=== PATIENT | male | born 1990 | race Hispanic/Latino ===

== ENCOUNTER 2021-11-25 09:55 | Emergency (ER) | payer SELFPAY ==
[2021-11-25] MEDS ORDERED: dexAMETHasone 10 MG/ML VIAL ONE (10:35)
[2021-11-25] MEDS ORDERED: KETOROLAC 30 MG/ML INJ ONE (10:35)
[2021-11-25 11:46] LABS: SARS-COV-2 RT PCR NEGATIVE (NEGATIVE)
--- NOTE | 2021-11-25 11:54 | RAD REPORT ---
EXAM DESCRIPTION: RAD - Chest Pa And Lat (2 Views) - 11/25/2021 11:45 am CLINICAL HISTORY: Fever;Cough Chest pain. COMPARISON: No comparisons FINDINGS: The lungs are clear. The heart is normal in size. No displaced fractures. IMPRESSION: No acute or concerning finding suspected.
--- NOTE | 2021-11-25 12:06 | ER ---
Nurse's Notes [facility] Name: Vlad Lora Age: 31 yrs Sex: Male : 1990 Arrival Date: 11/25/2021 Time: 09:55 Bed 12 Private MD: Diagnosis: Streptococcal pharyngitis Presentation: 11/25 10:04 Chief complaint: Patient states: sore throat and fever that began yesterday. ss Coronavirus screen: Client denies travel out of the [place] in the last 14 days. Ebola Screen: Patient denies exposure to infectious person. Patient denies travel to an Ebola-affected area in the 21 days before illness onset. Initial Sepsis Screen: Does the patient meet any 2 criteria? No. Patient's initial sepsis screen is negative. Does the patient have a suspected source of infection? No. Patient's initial sepsis screen is negative. Risk Assessment: Do you want to hurt yourself or someone else? Patient reports no desire to harm self or others. Onset of symptoms was November 24, 2021. 10:04 Method Of Arrival: Ambulatory ss 10:04 Acuity: ROSMERY 3 ss Historical: - Allergies: 10:06 No Known Allergies; ss - Home Meds: 10:06 None [Active]; ss - PMHx: 10:06 None; ss - PSHx: 10:06 None; ss - Immunization history:: Client reports having NOT received the Covid vaccine. - Social history:: Smoking status: Patient denies any tobacco usage or history of. Screenin:06 Abuse screen: Denies threats or abuse. Denies injuries from another. Nutritional ss screening: No deficits noted. Tuberculosis screening: Never had TB. Fall Risk None identified. Assessment: 10:06 General: Appears uncomfortable, Behavior is calm, cooperative, Reports fever for ss feeling ill for 12-24 hours. Pain: Complains of pain in throat Pain currently is 8 out of 10 on a pain scale. Quality of pain is described as aching, tender. Neuro: Level of Consciousness is awake, alert, obeys commands, Oriented to person, place, time, situation. Respiratory: Airway is patent Respiratory effort is even, unlabored, Respiratory pattern is regular, symmetrical. GI: Patient currently denies abdominal pain, diarrhea, nausea, vomiting. EENT: Nares are clear Oral mucosa is moist. Throat is reddened has enlarged tonsils Reports difficulty swallowing since yesterday pain when swallowing. Derm: Skin is intact, is healthy with good turgor, Skin is pink, warm \\T\\ dry. normal. 12:13 General: Appears in no apparent distress. comfortable. Cardiovascular: Capillary refill ss < 3 seconds is brisk in bilateral fingers. Respiratory: Airway is patent Respiratory effort is even, unlabored, Respiratory pattern is regular, symmetrical. Derm: Skin is intact, is healthy with good turgor, Skin is pink, warm \\T\\ dry. normal. Vital Signs: 10:04 BP 141 / 85; Pulse 123; Resp 17; Temp 98.0(O); Pulse Ox 99% on R/A; Weight 83.01 kg; ss Height 5 ft. 9 in. (175.26 cm); Pain 8/10; 10:43 Pulse 116; ss 10:04 Body Mass Index 27.02 (83.01 kg, 175.26 cm) ss ED Course: 09:55 Patient arrived in ED. am2 09:57 José Sosa NP is PHCP. pm1 09:57 Edmund Mckeon MD is Attending Physician. pm1 10:06 Triage completed. ss 10:06 Arm band placed on right wrist. ss 10:06 Patient has correct armband on for positive identification. Bed in low position. Call ss light in reach. Side rails up X 1. 10:23 Strep Sent. ss 10:23 COVID-19/FLU A+B (Document "Date of Onset" if Symptomatic) Sent. ss 10:42 Norma Baires, BRYAN is Primary Nurse. ss 11:46 Chest Pa And Lat (2 Views) XRAY In Process Unspecified. EDMS 12:13 No provider procedures requiring assistance completed. Patient did not have IV access ss during this emergency room visit. Administered Medications: 10:42 Drug: Ketorolac 60 mg Route: IM; Site: right gluteus; ss 12:13 Follow up: Response: No adverse reaction; Marked relief of symptoms; Pain is decreased ss 10:43 Drug: Decadron (dexamethasone) 10 mg Route: IM; Site: right deltoid; ss 12:13 Follow up: Response: No adverse reaction; Marked relief of symptoms; Pain is decreased ss Outcome: 12:05 Discharge ordered by . pm1 12:13 Discharged to home ambulatory. 12:13 Condition: good 12:13 Discharge instructions given to patient, family, Instructed on discharge instructions, follow up and referral plans. medication usage, Demonstrated understanding of instructions, follow-up care, medications, Prescriptions given X 2. 12:18 Patient left the ED. Signatures: Dispatcher [employer] EDNorma Buenrostro RN RN ss Marinas, Patrick, MACHINE WELT BUTTER MACHINE WELT BUTTER pm1 Elaine Vila am2
--- NOTE | 2021-11-25 12:06 | EDPHYS ---
Physician Documentation [facility] Name: Vlad Lora Age: 31 yrs Sex: Male : 1990 Arrival Date: 11/25/2021 Time: 09:55 Bed 12 Private MD: ED Physician Edmund Mckeon HPI: 11/25 10:32 This 31 yrs old Male presents to ER via Ambulatory with complaints of Sore pm1 Throat, Difficulty Swallowing, Fever, Chest Congestion. 10:32 The patient presents with sore throat. The patient describes throat pain as raw, pm1 scratchy. 10:32 Onset: The symptoms/episode began/occurred 3 day(s) ago. Severity of symptoms: in the pm1 emergency department the symptoms are actually worse. Modifying factors: The symptoms are alleviated by nothing, the symptoms are aggravated by swallowing, Patient's oral intake status: good unaware of sick contact. Associated signs and symptoms: Pertinent positives: fever, chest congestion, Pertinent negatives shortness of breath. The patient has not experienced similar symptoms in the past. The patient has not recently seen a physician. Historical: - Allergies: 10:06 No Known Allergies; ss - Home Meds: 10:06 None [Active]; ss - PMHx: 10:06 None; ss - PSHx: 10:06 None; ss - Immunization history:: Client reports having NOT received the Covid vaccine. - Social history:: Smoking status: Patient denies any tobacco usage or history of. ROS: 10:32 Constitutional: Negative for fever, chills, and weight loss. pm1 10:32 Abdomen/GI: Negative for abdominal pain, nausea, vomiting, diarrhea, and constipation. 10:32 Back: Negative for injury and pain, MS/Extremity: Negative for injury and deformity, Skin: Negative for injury, rash, and discoloration, Neuro: Negative for headache, weakness, numbness, tingling, and seizure. 10:32 ENT: Positive for sore throat, Negative for ear pain. 10:32 Cardiovascular: Negative for chest pain. 10:32 Respiratory: Negative for cough, shortness of breath. 10:32 All other systems are negative. Exam: 10:32 Constitutional: This is a well developed, well nourished patient who is awake, alert, pm1 and in no acute distress. Head/Face: Normocephalic, atraumatic. 10:32 Back: No spinal tenderness. No costovertebral tenderness. Full range of motion. Skin: Warm, dry with normal turgor. Normal color with no rashes, no lesions, and no evidence of cellulitis. MS/ Extremity: Pulses equal, no cyanosis. Neurovascular intact. Full, normal range of motion. 10:32 Eyes: Exam is negative for acute changes, Periorbital structures: appear normal, Extraocular movements: no acute changes, Conjunctiva: no acute changes, no injection. 10:32 ENT: External ear(s): no acute changes, Ear canal(s): no acute changes, TM's: no acute changes, Posterior pharynx: Tonsils: bilaterally enlarged, with erythema, no exudate, no ulcerations, peritonsillar mass, is not appreciated. 10:32 Cardiovascular: Exam negative for acute changes, Rate: normal, Rhythm: regular, Pulses: no pulse deficits are appreciated. 10:32 Respiratory: Exam negative for acute changes, respiratory distress, shortness of breath, Breath sounds: are clear throughout. 10:32 Neuro: Exam negative for acute changes, Orientation: is normal, Mentation: is normal, Motor: is normal, moves all fours. Vital Signs: 10:04 BP 141 / 85; Pulse 123; Resp 17; Temp 98.0(O); Pulse Ox 99% on R/A; Weight 83.01 kg; ss Height 5 ft. 9 in. (175.26 cm); Pain 8/10; 10:43 Pulse 116; ss 10:04 Body Mass Index 27.02 (83.01 kg, 175.26 cm) MDM: 10:04 Patient medically screened. pm1 12:05 Data reviewed: vital signs. Data interpreted: Pulse oximetry: on room air is 99 %. pm1 Interpretation: normal. Counseling: I had a detailed discussion with the patient and/or guardian regarding: the historical points, exam findings, and any diagnostic results supporting the discharge/admit diagnosis, lab results, radiology results, the need for outpatient follow up, to return to the emergency department if symptoms worsen or persist or if there are any questions or concerns that arise at home. 11/25 10:05 Order name: COVID-19/FLU A+B (Document "Date of Onset" if Symptomatic); Complete Time: pm1 11:47 02 10:05 Order name: Strep; Complete Time: 11:38 pm1 11/25 10:30 Order name: Chest Pa And Lat (2 Views) XRAY; Complete Time: 12:05 pm1 Administered Medications: 10:42 Drug: Ketorolac 60 mg Route: IM; Site: right gluteus; ss 12:13 Follow up: Response: No adverse reaction; Marked relief of symptoms; Pain is decreased ss 10:43 Drug: Decadron (dexamethasone) 10 mg Route: IM; Site: right deltoid; ss 12:13 Follow up: Response: No adverse reaction; Marked relief of symptoms; Pain is decreased ss Disposition: 12:38 Co-signature as Attending Physician, Edmund Mckeon MD. rn Disposition Summary: 11/25/21 12:05 Discharge Ordered Location: Home pm1 Problem: new pm1 Symptoms: have improved pm1 Condition: Stable pm1 Diagnosis - Streptococcal pharyngitis pm1 Followup: pm1 - With: Emergency Department - When: As needed - Reason: Worsening of condition Followup: pm1 - With: Private Physician - When: 2 - 3 days - Reason: Recheck today's complaints, Continuance of care, Re-evaluation by your physician Discharge Instructions: - Discharge Summary Sheet pm1 - Strep Throat, Adult pm1 Forms: - Medication Reconciliation Form pm1 - Thank You Letter pm1 - Antibiotic Education pm1 - Prescription Opioid Use pm1 Prescriptions: - Amoxicillin 500 mg Oral Capsule - take 1 capsule by ORAL route every 8 hours for 10 days; 30 tablet; Refills: 0, pm1 Product Selection Permitted - Diclofenac Sodium 75 mg Oral tablet,delayed release (DR/EC) - take 1 tablet by ORAL route 2 times per day As needed; 30 tablet; Refills: 0, pm1 Product Selection Permitted Signatures: Dispatcher [employer] Edmund Murillo MD MD rn Smirch, Shelby, RN RN ss Marinas, Patrick, NP CLOTH FEEDER pm1
[2021-11-25 12:29] VITALS: BP 141/85; TEMP 98; O2SAT 99
== END 2021-11-25 12:18 | disposition home or self-care (01) ==
LOC: ER 09:55
DX: J02.0 Streptococcal pharyngitis (principal); Z20.822 Contact with and (suspected) exposure to COVID-19
CPT/HCPCS: 0240U; 71046; 87081; 96372; 99284; J1100

== ENCOUNTER 2022-01-04 17:17 | Inpatient (IN) | payer SELFPAY ==
--- OUTSIDE RECORDS SUMMARY | 2022-01-04 23:59 | XMS REPORT | Continuity of Care Document ---
:1990 Author Organization [facility] t Address [address] Weiss [address] [place] [address] Care Team Providers Name Role Phone LEONARDA Attending Clinician Unavailable SY VALVERDE Attending Clinician Unavailable LEONOR EDWARDS Attending Clinician Unavailable SY VALVERDE Admitting Clinician Unavailable Payers Payer Name Policy Type Policy Number Effective Date Expiration Date S [facility] CARE - [id number] GENERIC - [facility] CARE Problems This patient has no known problems. Allergies, Adverse Reactions, Alerts Allergy Allergy Status Severity Reaction(s) Onset Inactive Treating Comm ents Source Name Type Date Date Clinician NO KNOWN Allergy Active [facility] Medications This patient has no known medications. Vital Signs Vital Name Observation Time Observation Value Comments Source WEIGHT 2022-01-03 08:09:00 68.7 kg WEIGHT 2022-01-02 09:48:00 68.856 kg WEIGHT 2021-12-29 08:00:00 70.897 kg WEIGHT 2021-12-27 12:15:00 73.7 kg WEIGHT 2021-12-26 07:20:00 73.982 kg WEIGHT 2021-12-22 07:34:00 75.887 kg WEIGHT 2021-12-12 08:17:00 77.2 kg WEIGHT 2021-12-11 07:07:00 78.6 kg WEIGHT 2021-12-10 09:04:00 82.9 kg WEIGHT 2021-12-09 11:00:00 86.592 kg WEIGHT 2021-12-08 11:00:00 87.771 kg WEIGHT 2021-12-05 09:00:00 86.2 kg WEIGHT 2021-11-30 23:00:00 87.4 kg HEIGHT 2021-11-30 17:00:00 175 cm WEIGHT 2021-11-30 17:00:00 85.775 kg WEIGHT 2022-01-03 08:09:00 68.7 kg WEIGHT 2022-01-02 09:48:00 68.856 kg WEIGHT 2021-12-29 08:00:00 70.897 kg WEIGHT 2021-12-27 12:15:00 73.7 kg WEIGHT 2021-12-26 07:20:00 73.982 kg WEIGHT 2021-12-22 07:34:00 75.887 kg WEIGHT 2021-12-12 08:17:00 77.2 kg WEIGHT 2021-12-11 07:07:00 78.6 kg WEIGHT 2021-12-10 09:04:00 82.9 kg WEIGHT 2021-12-09 11:00:00 86.592 kg WEIGHT 2021-12-08 11:00:00 87.771 kg WEIGHT 2021-12-05 09:00:00 86.2 kg WEIGHT 2021-11-30 23:00:00 87.4 kg HEIGHT 2021-11-30 17:00:00 175 cm WEIGHT 2021-11-30 17:00:00 85.775 kg Procedures This patient has no known procedures. Encounters Start End Encounter Admission Attending Care Care Encounter Source Date/Time Date/Time Type Type Clinicians Facility Department ID 2022-01-16 2022-01-16 Outpatient TOBY BROWER [id number] [facility] 00:00:00 00:00:00 DIPAK 2021-11-30 2022-01-04 Inpatient UR NICOLLETOBY Surgery [id number] [facility] 15:29:00 22:45:00 VENU 2022-01-03 2022-01-03 Outpatient TOBY BROWER [id number] [facility] 00:00:00 00:00:00 SHELLEY 2021-12-21 2021-12-21 Outpatient TOBY BROWER [id number] [facility] 00:00:00 00:00:00 SHELLEY 2021-12-13 2021-12-13 Outpatient EL TOBY BROWER [id number] [facility] 00:00:00 00:00:00 DIPAKBAILEE 2021-11-30 2021-11-30 Outpatient [facility] [id number] [facility] 15:29:00 23:59:00 [facility] 2021-11-30 2021-11-30 Outpatient [facility] [id number] [facility] 15:29:00 15:29:00 [facility] 2021-11-30 2021-11-30 Outpatient [facility] [id number] [facility] 15:29:00 15:29:00 [facility] 2021-11-30 2021-11-30 Outpatient SHINE EDWARDS [facility] [id number] [facility] 11:11:52 11:11:52 [facility] Results Test Description Test Time Test Comments Results Result Comments Source CBC (HEMOGRAM ONLY) 2022-01-04 05:38:19 Test Item Value Reference Range Interpretation Comme nts WHITE BLOOD CELL COUNT (BEAKER) (test code = 775) 6.5 K/ L 3.5- 10.5 RED BLOOD CELL COUNT (BEAKER) (test code = 761) 3.73 M/ L 4.63-6 .08 L HEMOGLOBIN (BEAKER) (test code = 410) 9.7 GM/DL 13.7-17.5 L HEMATOCRIT (BEAKER) (test code = 411) 30.3 % 40.1-51.0 L MEAN CORPUSCULAR VOLUME (BEAKER) (test code = 753) 81.2 fL 79. 0-92.2 MEAN CORPUSCULAR HEMOGLOBIN (BEAKER) (test code = 751) 26.0 pg 25.7-32.2 MEAN CORPUSCULAR HEMOGLOBIN CONC (BEAKER) (test code = 752) 32.0 GM/DL 32.3-36.5 L RED CELL DISTRIBUTION WIDTH (BEAKER) (test code = 412) 14.1 % 11.6-14.4 PLATELET COUNT (BEAKER) (test code = 756) 502 K/CU MM 150-450 H MEAN PLATELET VOLUME (BEAKER) (test code = 754) 8.1 fL 9.4-12 .4 L NUCLEATED RED BLOOD CELLS (BEAKER) (test code = 413) 0 /100 WBC 0 -0 BUN AND CREATININE [id number] 04:24:21 Test Item Value Reference Range Interpretation Comments BLOOD UREA NITROGEN 11 mg/dL 7-21 (BEAKER) (test code = 354) CREATININE (BEAKER) 1.06 mg/dL 0.57-1.25 (test code = 358) BUN/CREAT RATIO 10 For a normal (BEAKER) (test code individu al on a = 8204052001) normal diet, t he reference inter edward for the mass ra luis ranges between 12:1 and 20:1 (BUN i n mg/dL/creatinin e in mg/dL) EGFR (BEAKER) (test 81 mL/min/1.73 ESTIMA AMBAR GFR IS code = 1092) sq m NOT ACCURATE CREATININE CLEARANCE IN PREDICTING GLOMERULAR FILTRATION RATE . ESTIMATED GFR I S NOT APPLICABLE FOR DIALYSIS PATIEN TS. [facility] ID - [place] AMEZCUAUNGUS CULTURE + [id number] 17:17:07 Test Item Value Reference Range Interpretation Comments CULTURE (BEAKER) (test No fungus isolated in code = 1095) 28 days FUNGUS SMEAR (BEAKER) No fungi seen (test code = 1406) FUNGUS CULTURE + [id number] 17:17:06 Test Item Value Reference Range Interpretation Comments CULTURE (BEAKER) (test No fungus isolated in code = 1095) 28 days FUNGUS SMEAR (BEAKER) No fungi seen (test code = 1406) SARS-COV2/RT-PCR ([facility])2021-12-30 09:52:18 Test Item Value Reference Range Interpretation Comments SARS-COV2/RT-PCR (test Negative Not Detected, Negative, code = 8366861) See external report for linked test SARS-COV-[address] [facility] (test code = 7504510) Negative result for this test determines that SARS-CoV-2 RNA was not present in the specimen above the Limit of Detection (LOD). However, Negative results do not preclude SARS-CoV-2 infection and should not be used as the sole basis for treatment or patient management decisions. Negative results mustbe combined with clinical observations, patient history, and epidemiological information. A false negative result may occur if a specimen is improperly collected, transported or handled. A false negative result should be considered if patient's recent exposures or clinical presentation indicate that COVID-19 (SARS-CoV-2) is likely and diagnostic tests for other causes of illness are negative. Re-testing should be considered in cases of suspected false negatives.The limit of detection for this assay is 800 copies/mL.This SARS CoV-2 test is a real-time RT-PCR test intended for the qualitative detection of nucleic acid from SARS-CoV-2 in a nasopharyngeal swab specimen collected from individuals susp ected of COVID-19 by their healthcare provider.This test has not been Food and Drug Administration (FDA) cleared or approved. This is a modified version of an approved Emergency Use Authorization (EUA) and is in the process of review by the FDA. Once authorized by the FDA, the issued EUA will be effective until the declaration that circumstances exist justifying the authorization of the emergency use of in vitro diagnostic tests for detection and/or diagnosis of COVID-19 is terminated under Section 564(b)(2) of the Act or the EUA is revoked under Section 564(g) of the Act.Fact Sheet for Healthcare Providers:https://www.[employer]/sites/default/files/product/documents/Fact_Shee y_WH_Fmtlycspp_Jkkq_TXMH-MrD-0.pdfFact Sheet for Healthcare Patients:https://www.[employer]/sites/default/files/product/ documents/Epps_Cdlld_Ushsdoel_Ijnn_IPUM-SrT-7.pdfPerforming Laboratory:[address], [place] [address]OCS AND CREATININE [id number] 05:45:15 Test Item Value Reference Range Interpretation Comments BLOOD UREA NITROGEN 9 mg/dL 7-21 (BEAKER) (test code = 354) CREATININE (BEAKER) 1.26 mg/dL 0.57-1.25 H (test code = 358) BUN/CREAT RATIO 7 For a normal (BEAKER) (test code individu al on a = 5533438099) normal diet, t he reference inter edward for the mass ra luis ranges between 12:1 and 20:1 (BUN i n mg/dL/creatinin e in mg/dL) EGFR (BEAKER) (test 67 mL/min/1.73 ESTIMA AMBAR GFR IS code = 1092) sq m NOT ACCURATE CREATININE CLEARANCE IN PREDICTING GLOMERULAR FILTRATION RATE . ESTIMATED GFR I S NOT APPLICABLE FOR DIALYSIS PATIEN TS. [id number] 05:45:15 Test Item Value Reference Range Interpretation Comments MAGNESIUM (BEAKER) (test code = 1.9 mg/dL 1.6-2.6 627) [facility] ID - DBBASIC METABOLIC [id number] 05:45:14 Test Item Value Reference Range Interpretation Comments SODIUM (BEAKER) 136 meq/L 136-145 (test code = 381) POTASSIUM (BEAKER) 4.0 meq/L 3.5-5.1 (test code = 379) CHLORIDE (BEAKER) 102 meq/L 98-107 (test code = 382) CO2 (BEAKER) (test 24 meq/L 22-29 code = 355) BLOOD UREA NITROGEN 9 mg/dL 7-21 (BEAKER) (test code = 354) CREATININE (BEAKER) 1.26 mg/dL 0.57-1.25 H (test code = 358) GLUCOSE RANDOM 94 mg/dL 70-105 (BEAKER) (test code = 652) CALCIUM (BEAKER) 9.0 mg/dL 8.4-10.2 (test code = 697) EGFR (BEAKER) (test 67 mL/min/1.73 ESTIMA AMBAR GFR IS code = 1092) sq m NOT ACCURATE CREATININE CLEARANCE IN PREDICTING GLOMERULAR FILTRATION RATE . ESTIMATED GFR I S NOT APPLICABLE FOR DIALYSIS PATIEN TS. [facility] ID - DBCBC W/PLT COUNT & AUTO [id number] 05:35:41 Test Item Value Reference Range Interpretation Comments WHITE BLOOD CELL COUNT (BEAKER) 7.2 K/ L 3.5-10.5 (test code = 775) RED BLOOD CELL COUNT (BEAKER) 3.44 M/ L 4.63-6.08 L (test code = 761) HEMOGLOBIN (BEAKER) (test code = 9.0 GM/DL 13.7-17.5 L 410) HEMATOCRIT (BEAKER) (test code = 28.5 % 40.1-51.0 L 411) MEAN CORPUSCULAR VOLUME (BEAKER) 82.8 fL 79.0-92.2 (test code = 753) MEAN CORPUSCULAR HEMOGLOBIN 26.2 pg 25.7-32.2 (BEAKER) (test code = 751) MEAN CORPUSCULAR HEMOGLOBIN CONC 31.6 GM/DL 32.3-36.5 L (BEAKER) (test code = 752) RED CELL DISTRIBUTION WIDTH 13.9 % 11.6-14.4 (BEAKER) (test code = 412) PLATELET COUNT (BEAKER) (test 563 K/CU MM 150-450 H code = 756) MEAN PLATELET VOLUME (BEAKER) 8.2 fL 9.4-12.4 L (test code = 754) NUCLEATED RED BLOOD CELLS 0 /100 WBC 0-0 (BEAKER) (test code = 413) NEUTROPHILS RELATIVE PERCENT 51 % (BEAKER) (test code = 429) LYMPHOCYTES RELATIVE PERCENT 30 % (BEAKER) (test code = 430) MONOCYTES RELATIVE PERCENT 9 % (BEAKER) (test code = 431) EOSINOPHILS RELATIVE PERCENT 9 % (BEAKER) (test code = 432) BASOPHILS RELATIVE PERCENT 0 % (BEAKER) (test code = 437) NEUTROPHILS ABSOLUTE COUNT 3.66 K/ L 1.78-5.38 (BEAKER) (test code = 670) LYMPHOCYTES ABSOLUTE COUNT 2.14 K/ L 1.32-3.57 (BEAKER) (test code = 414) MONOCYTES ABSOLUTE COUNT (BEAKER) 0.64 K/ L 0.30-0.82 (test code = 415) EOSINOPHILS ABSOLUTE COUNT 0.67 K/ L 0.04-0.54 H (BEAKER) (test code = 416) BASOPHILS ABSOLUTE COUNT (BEAKER) 0.03 K/ L 0.01-0.08 (test code = 417) IMMATURE GRANULOCYTES-RELATIVE 1 % 0-1 PERCENT (BEAKER) (test code = 2801) BLOOD [id number] 09:00:59 Test Item Value Reference Range Interpretation Comments CULTURE (BEAKER) (test No growth in 5 days code = 1095) BLOOD [id number] 09:00:59 Test Item Value Reference Range Interpretation Comments CULTURE (BEAKER) (test No growth in 5 days code = 1095) BUN AND CREATININE [id number] 05:34:05 Test Item Value Reference Range Interpretation Comments BLOOD UREA NITROGEN 8 mg/dL 7-21 (BEAKER) (test code = 354) CREATININE (BEAKER) 1.14 mg/dL 0.57-1.25 (test code = 358) BUN/CREAT RATIO 7 For a normal (BEAKER) (test code individu al on a = 5158191210) normal diet, t he reference inter edward for the mass ra luis ranges between 12:1 and 20:1 (BUN i n mg/dL/creatinin e in mg/dL) EGFR (BEAKER) (test 75 mL/min/1.73 ESTIMA AMBAR GFR IS code = 1092) sq m NOT ACCURATE CREATININE CLEARANCE IN PREDICTING GLOMERULAR FILTRATION RATE . ESTIMATED GFR I S NOT APPLICABLE FOR DIALYSIS PATIEN TS. [facility] ID - ROSIE MCBC W/PLT COUNT & AUTO [id number] 05:18:00 Test Item Value Reference Range Interpretation Comments WHITE BLOOD CELL COUNT (BEAKER) 7.7 K/ L 3.5-10.5 (test code = 775) RED BLOOD CELL COUNT (BEAKER) 3.38 M/ L 4.63-6.08 L (test code = 761) HEMOGLOBIN (BEAKER) (test code = 8.8 GM/DL 13.7-17.5 L 410) HEMATOCRIT (BEAKER) (test code = 28.6 % 40.1-51.0 L 411) MEAN CORPUSCULAR VOLUME (BEAKER) 84.6 fL 79.0-92.2 (test code = 753) MEAN CORPUSCULAR HEMOGLOBIN 26.0 pg 25.7-32.2 (BEAKER) (test code = 751) MEAN CORPUSCULAR HEMOGLOBIN CONC 30.8 GM/DL 32.3-36.5 L (BEAKER) (test code = 752) RED CELL DISTRIBUTION WIDTH 13.8 % 11.6-14.4 (BEAKER) (test code = 412) PLATELET COUNT (BEAKER) (test 529 K/CU MM 150-450 H code = 756) MEAN PLATELET VOLUME (BEAKER) 8.3 fL 9.4-12.4 L (test code = 754) NUCLEATED RED BLOOD CELLS 0 /100 WBC 0-0 (BEAKER) (test code = 413) NEUTROPHILS RELATIVE PERCENT 61 % (BEAKER) (test code = 429) LYMPHOCYTES RELATIVE PERCENT 21 % (BEAKER) (test code = 430) MONOCYTES RELATIVE PERCENT 8 % (BEAKER) (test code = 431) EOSINOPHILS RELATIVE PERCENT 8 % (BEAKER) (test code = 432) BASOPHILS RELATIVE PERCENT 0 % (BEAKER) (test code = 437) NEUTROPHILS ABSOLUTE COUNT 4.64 K/ L 1.78-5.38 (BEAKER) (test code = 670) LYMPHOCYTES ABSOLUTE COUNT 1.63 K/ L 1.32-3.57 (BEAKER) (test code = 414) MONOCYTES ABSOLUTE COUNT (BEAKER) 0.64 K/ L 0.30-0.82 (test code = 415) EOSINOPHILS ABSOLUTE COUNT 0.61 K/ L 0.04-0.54 H (BEAKER) (test code = 416) BASOPHILS ABSOLUTE COUNT (BEAKER) 0.03 K/ L 0.01-0.08 (test code = 417) IMMATURE GRANULOCYTES-RELATIVE 1 % 0-1 PERCENT (BEAKER) (test code = 2801) BUN AND CREATININE [id number] 06:44:03 Test Item Value Reference Range Interpretation Comments BLOOD UREA NITROGEN 6 mg/dL 7-21 L (BEAKER) (test code = 354) CREATININE (BEAKER) 1.25 mg/dL 0.57-1.25 (test code = 358) BUN/CREAT RATIO 5 For a normal (BEAKER) (test code individu al on a = [id number]) normal diet, t he reference inter edward for the mass ra luis ranges between 12:1 and 20:1 (BUN i n mg/dL/creatinin e in mg/dL) EGFR (BEAKER) (test 67 mL/min/1.73 ESTIMA AMBAR GFR IS code = 1092) sq m NOT ACCURATE CREATININE CLEARANCE IN PREDICTING GLOMERULAR FILTRATION RATE . ESTIMATED GFR I S NOT APPLICABLE FOR DIALYSIS PATIEN TS. [facility] ID - DBCBC W/PLT COUNT & AUTO [id number] 06:31:13 Test Item Value Reference Range Interpretation Comments WHITE BLOOD CELL COUNT (BEAKER) 8.3 K/ L 3.5-10.5 (test code = 775) RED BLOOD CELL COUNT (BEAKER) 3.09 M/ L 4.63-6.08 L (test code = 761) HEMOGLOBIN (BEAKER) (test code = 8.0 GM/DL 13.7-17.5 L 410) HEMATOCRIT (BEAKER) (test code = 25.6 % 40.1-51.0 L 411) MEAN CORPUSCULAR VOLUME (BEAKER) 82.8 fL 79.0-92.2 (test code = 753) MEAN CORPUSCULAR HEMOGLOBIN 25.9 pg 25.7-32.2 (BEAKER) (test code = 751) MEAN CORPUSCULAR HEMOGLOBIN CONC 31.3 GM/DL 32.3-36.5 L (BEAKER) (test code = 752) RED CELL DISTRIBUTION WIDTH 13.7 % 11.6-14.4 (BEAKER) (test code = 412) PLATELET COUNT (BEAKER) (test 480 K/CU MM 150-450 H code = 756) MEAN PLATELET VOLUME (BEAKER) 8.3 fL 9.4-12.4 L (test code = 754) NUCLEATED RED BLOOD CELLS 0 /100 WBC 0-0 (BEAKER) (test code = 413) NEUTROPHILS RELATIVE PERCENT 60 % (BEAKER) (test code = 429) LYMPHOCYTES RELATIVE PERCENT 22 % (BEAKER) (test code = 430) MONOCYTES RELATIVE PERCENT 10 % (BEAKER) (test code = 431) EOSINOPHILS RELATIVE PERCENT 7 % (BEAKER) (test code = 432) BASOPHILS RELATIVE PERCENT 0 % (BEAKER) (test code = 437) NEUTROPHILS ABSOLUTE COUNT 4.98 K/ L 1.78-5.38 (BEAKER) (test code = 670) LYMPHOCYTES ABSOLUTE COUNT 1.78 K/ L 1.32-3.57 (BEAKER) (test code = 414) MONOCYTES ABSOLUTE COUNT (BEAKER) 0.78 K/ L 0.30-0.82 (test code = 415) EOSINOPHILS ABSOLUTE COUNT 0.57 K/ L 0.04-0.54 H (BEAKER) (test code = 416) BASOPHILS ABSOLUTE COUNT (BEAKER) 0.03 K/ L 0.01-0.08 (test code = 417) IMMATURE GRANULOCYTES-RELATIVE 1 % 0-1 PERCENT (BEAKER) (test code = 2801) C. DIFFICILE GDH [id number] 12:00:45 Test Item Value Reference Range Interpretation Comments CDT TOXIN (test code Negative Negative = [id number]) CDT GDH ANTIGEN (test Negative Negative No ind ication of code = 8455906738) Clostridi um difficile infection and n o colonization. Discontinue ent paulina isolation and t herapy. Testing performed by [employer] Rapid Cassette Assay. For GDH, published sensitivity of the assay is 98.7% compared to cytotoxicity testing. For Toxin AB, published sensitivity is 87.8% and specificity 99.4% compared to cytotoxicity testing.Verification of kit performance was done by the [facility] Microbiology Lab prior to clinical use.MRSA [id number] 11:40:06 Test Item Value Reference Range Interpretation Comments CULTURE (BEAKER) (test code No MRSA isolated = 1095) BUN AND CREATININE [id number] 04:20:41 Test Item Value Reference Range Interpretation Comments BLOOD UREA NITROGEN 6 mg/dL 7-21 L (BEAKER) (test code = 354) CREATININE (BEAKER) 1.24 mg/dL 0.57-1.25 (test code = 358) BUN/CREAT RATIO 5 For a normal (BEAKER) (test code individu al on a = 1228074048) normal diet, t he reference inter edward for the mass ra luis ranges between 12:1 and 20:1 (BUN i n mg/dL/creatinin e in mg/dL) EGFR (BEAKER) (test 68 mL/min/1.73 ESTIMA AMBAR GFR IS code = 1092) sq m NOT ACCURATE CREATININE CLEARANCE IN PREDICTING GLOMERULAR FILTRATION RATE . ESTIMATED GFR I S NOT APPLICABLE FOR DIALYSIS PATIEN TS. [facility] ID - ROSIE MCBC W/PLT COUNT & AUTO [id number] 03:56:24 Test Item Value Reference Range Interpretation Comments WHITE BLOOD CELL COUNT (BEAKER) 8.1 K/ L 3.5-10.5 (test code = 775) RED BLOOD CELL COUNT (BEAKER) 3.00 M/ L 4.63-6.08 L (test code = 761) HEMOGLOBIN (BEAKER) (test code = 7.8 GM/DL 13.7-17.5 L 410) HEMATOCRIT (BEAKER) (test code = 25.2 % 40.1-51.0 L 411) MEAN CORPUSCULAR VOLUME (BEAKER) 84.0 fL 79.0-92.2 (test code = 753) MEAN CORPUSCULAR HEMOGLOBIN 26.0 pg 25.7-32.2 (BEAKER) (test code = 751) MEAN CORPUSCULAR HEMOGLOBIN CONC 31.0 GM/DL 32.3-36.5 L (BEAKER) (test code = 752) RED CELL DISTRIBUTION WIDTH 13.9 % 11.6-14.4 (BEAKER) (test code = 412) PLATELET COUNT (BEAKER) (test 455 K/CU MM 150-450 H code = 756) MEAN PLATELET VOLUME (BEAKER) 8.1 fL 9.4-12.4 L (test code = 754) NUCLEATED RED BLOOD CELLS 0 /100 WBC 0-0 (BEAKER) (test code = 413) NEUTROPHILS RELATIVE PERCENT 61 % (BEAKER) (test code = 429) LYMPHOCYTES RELATIVE PERCENT 21 % (BEAKER) (test code = 430) MONOCYTES RELATIVE PERCENT 9 % (BEAKER) (test code = 431) EOSINOPHILS RELATIVE PERCENT 7 % (BEAKER) (test code = 432) BASOPHILS RELATIVE PERCENT 1 % (BEAKER) (test code = 437) NEUTROPHILS ABSOLUTE COUNT 4.88 K/ L 1.78-5.38 (BEAKER) (test code = 670) LYMPHOCYTES ABSOLUTE COUNT 1.68 K/ L 1.32-3.57 (BEAKER) (test code = 414) MONOCYTES ABSOLUTE COUNT (BEAKER) 0.72 K/ L 0.30-0.82 (test code = 415) EOSINOPHILS ABSOLUTE COUNT 0.57 K/ L 0.04-0.54 H (BEAKER) (test code = 416) BASOPHILS ABSOLUTE COUNT (BEAKER) 0.04 K/ L 0.01-0.08 (test code = 417) IMMATURE GRANULOCYTES-RELATIVE 2 % 0-1 H PERCENT (BEAKER) (test code = 2801) ANAEROBIC [id number] 09:20:37 Test Item Value Reference Range Interpretation Comments CULTURE (BEAKER) (test No anaerobes isolated code = 1095) RAD, CHEST, 1 VIEW, NON [id number] 07:14:00Reason for exam:->chest tubes in placeShould this be performed at the bedside?->Yes [facility] : 1990 Sex: MFINAL REPORT Exam: RAD, CHEST, 1 VIEW, NON DEPTDate: 12/26/2021 7:08 AM Indication:chest tubes in placeComparison: 12/25/2021 FINDINGS: Lines/Tubes/Devices: Overlying EKG leads. Lungs/pleura:Borderline lung volumes. Bibasilar streaky airspace opacities, left greater than right. Trace left apical pleural density. Heart/Mediastinum:Unchanged Bones/Soft Tissues: No acute osseous abnormality. Upper abdomen: Unremarkable. IMPRESSION:Borderline lung volumes.Bibasilar airspace opacities, left greater than right, likely atelectasis. Trace left apical pleural density, may represent pleural thickening versus fluid. Signed: Jim Dykes Verified Date/Time: 12/26/2021 07:14:09 Reading Location: [facility] Radiology Reading Room BUN AND CREATININE [id number] 06:03:25 Test Item Value Reference Range Interpretation Comments BLOOD UREA NITROGEN 9 mg/dL 7-21 ([facility]) (test code = 354) CREATININE ([facility]) 1.33 mg/dL 0.57-1.25 H (test code = 358) BUN/CREAT RATIO 7 For a normal (BEAKER) (test code individu al on a = [id number]) normal diet, t he reference inter edward for the mass ra luis ranges between 12:1 and 20:1 (BUN i n mg/dL/creatinin e in mg/dL) EGFR (BEAKER) (test 63 mL/min/1.73 ESTIMA AMBAR GFR IS code = 1092) sq m NOT ACCURATE CREATININE CLEARANCE IN PREDICTING GLOMERULAR FILTRATION RATE . ESTIMATED GFR I S NOT APPLICABLE FOR DIALYSIS PATIEN TS. [facility] ID - ROSIE MCBC W/PLT COUNT & AUTO [id number] 05:17:02 Test Item Value Reference Range Interpretation Comments WHITE BLOOD CELL COUNT (BEAKER) 8.6 K/ L 3.5-10.5 (test code = 775) RED BLOOD CELL COUNT (BEAKER) 3.06 M/ L 4.63-6.08 L (test code = 761) HEMOGLOBIN (BEAKER) (test code = 8.0 GM/DL 13.7-17.5 L 410) HEMATOCRIT (BEAKER) (test code = 25.4 % 40.1-51.0 L 411) MEAN CORPUSCULAR VOLUME (BEAKER) 83.0 fL 79.0-92.2 (test code = 753) MEAN CORPUSCULAR HEMOGLOBIN 26.1 pg 25.7-32.2 (BEAKER) (test code = 751) MEAN CORPUSCULAR HEMOGLOBIN CONC 31.5 GM/DL 32.3-36.5 L (BEAKER) (test code = 752) RED CELL DISTRIBUTION WIDTH 13.7 % 11.6-14.4 (BEAKER) (test code = 412) PLATELET COUNT (BEAKER) (test 507 K/CU MM 150-450 H code = 756) MEAN PLATELET VOLUME (BEAKER) 8.4 fL 9.4-12.4 L (test code = 754) NUCLEATED RED BLOOD CELLS 0 /100 WBC 0-0 (BEAKER) (test code = 413) NEUTROPHILS RELATIVE PERCENT 66 % (BEAKER) (test code = 429) LYMPHOCYTES RELATIVE PERCENT 15 % (BEAKER) (test code = 430) MONOCYTES RELATIVE PERCENT 9 % (BEAKER) (test code = 431) EOSINOPHILS RELATIVE PERCENT 6 % (BEAKER) (test code = 432) BASOPHILS RELATIVE PERCENT 1 % (BEAKER) (test code = 437) NEUTROPHILS ABSOLUTE COUNT 5.71 K/ L 1.78-5.38 H (BEAKER) (test code = 670) LYMPHOCYTES ABSOLUTE COUNT 1.31 K/ L 1.32-3.57 L (BEAKER) (test code = 414) MONOCYTES ABSOLUTE COUNT (BEAKER) 0.78 K/ L 0.30-0.82 (test code = 415) EOSINOPHILS ABSOLUTE COUNT 0.52 K/ L 0.04-0.54 (BEAKER) (test code = 416) BASOPHILS ABSOLUTE COUNT (BEAKER) 0.05 K/ L 0.01-0.08 (test code = 417) IMMATURE GRANULOCYTES-RELATIVE 3 % 0-1 H PERCENT (BEAKER) (test code = 2801) CT, SOFT TISSUE NECK, [id number] 19:46:00Unlisted Reason for Exam - Click Yes and Enter Reason Below->No [facility] : 1990 Sex: MFINAL REPORT CT, SOFT TISSUE NECK, CONTRAST INDICATION: Abscess, pharynx TECHNIQUE: Postcontrast CT images of the cervical soft tissues. Multiplanar, orthogonal reformatted images were generated. DOSE REDUCTION: Dose modulation, iterative reconstruction, and/or weight-based adjustment of the mA/kV was utilized to reduce the radiation dose to as low as reasonably achievable. COMPARISON: 12/14/2021, 12/17/2021 FINDINGS: Right-sided drain has been removed in the interim. No evidence of recurrent fluid collection. Trajectory of previously described left-sided surgical drain (seen on exam 12/14/2021) is unremarkable and there is no evidence of recurrent fluid collecti on. Visualized brain parenchyma is within normal limits. No obstructive paranasal sinus disease. Orbits are within normal limits. CT is insensitive for superficial mucosal lesions, which are better evaluated by direct inspection. Within these limitations the nasopharynx, hypopharynx and larynx are within normal limits. Evaluation of the oral cavity and oropharynx is limited secondary to streak artifact from dental amalgam. Within these limitations, the oral cavity and oropharynx are within normal limits. Parotid glands, submandibular glands and the thyroid gland are within normal limits. No acuteosseous findings. As the intrathoracic findings, please see dedicated report of concomitant CT chest. IMPRESSION: Interval removal of right-sided surgical drain without recurrent fluid collection. Signed: Lacy Wang MDReport Verified Date/Time: 12/25/2021 19:46:19 CT, CHEST, WITH [id number] 17:06:00 Unlisted Reason for Exam - Click Yes and Enter Reason Below->No [facility] : 1990 Sex: MFINAL REPORT TECHNIQUE: CT of the chest WITH intravenous contrast. Dose modulation, iterative reconstruction, and/or weight-based adjustment of the mA/kV was utilized to reduce the radiation dose to as low as reasonably achievable. INDICATION: Abscess, lung or mediastinal. COMPARISON: 12/09/2021 FINDINGS: LINES/TUBES: The mediastinal drain has been removed.. LUNGS AND AIRWAYS: Central airways are patent. Linear bands of atelectasis in the bilateral lung bases. There is mild left lower lobe consolidation which is mildly decreased since the previous exam.. Few scattered bilateral subcentimeter pulmonary nodules are stable. PLEURA: There are persistent trace loculated bilateral pleural effusions with pleural thickening. There is small amount of gas within the left-sided loculated pleural effusion at the base. There is also a trace left anterior pneumothorax, new since previous exam. The trace right- sided pneumothorax has resolved. HEART AND MEDIASTINUM: Thereis persistent fat stranding within the mediastinum. No focal fluid collection. The visualized thyroid gland is normal. There are few mildly enlarged mediastinal lymph nodes, likely reactive. A subcarinal lymph node measures 1.2 cm in short axis, likely reactive.. The heart and pericardium are within normal limits. SOFT TISSUES AND BONES: Unremarkable. UPPER ABDOMEN: Unremarkable. IMPRESSION:Trace loculated left-sided hydropneumothorax is not significantly changed in size. There is also a trace leftanterior pneumothorax.. Left lower lobe consolidation or atelectasis are mildly improved. Unchanged trace right-sided pleural effusion and basilar atelectasis. Persistent inflammatory changes in the mediastinum without focal fluid collection. Signed: Jamel Croucheport Verified Date/Time: 12/25/2021 17:06:11 Reading Location: [facility] C013Y CT Body Reading Room OMYCIN LEVEL, [id number] 14:28:13 Test Item Value Reference Range Interpretation Comments VANCOMYCIN TROUGH (BEAKER) (test 19.7 ug/mL 10.0-20.0 code = 522) Coldfusion ID - ADMINSPUTUM CULTURE + GRAM [id number] 09:43:47 Test Item Value Reference Range Interpretation Comments CULTURE (BEAKER) 4+ Normal respiratory (test code = 1095) tom present GRAM STAIN RESULT 2+ WBCs (BEAKER) (test code = 1123) GRAM STAIN RESULT 5-10 epithelial cells (BEAKER) (test code = 92270) GRAM STAIN RESULT 2+ gram negative rods (BEAKER) (test code = 23361) GRAM STAIN RESULT 1+ gram positive cocci (BEAKER) (test code = in pairs and clusters 682648) RAD, CHEST, 1 VIEW, NON [id number] 09:35:00Reason for exam:->chest tubes in placeShould this be performed at the bedside?->Yes [facility] : 1990 Sex: MFINAL REPORT Exam: RAD, CHEST, 1 VIEW, NON DEPTDate: 12/25/2021 9:33 AM Indication:chest tubes in placeComparison: 12/24/2021 FINDINGS: Lines/Tubes/Devices: Overlying EKG leads. Lungs/pleura:Borderline lung volumes. Left base streaky airspace opacities. No significanteffusion. No pneumothorax. Heart/Mediastinum:Unchanged Bones/Soft Tissues: No acute osseous abnormality. Upper abdomen: Unremarkable. IMPRESSION:Borderline lung volumes.Left basilar streaky airspace opacities, likely atelectasis. No pneumothorax. Signed: Jim Dykes Verified Date/Time: 12/25/2021 09:35:13 Reading Location: [facility] Radiology Reading Room Electronically signedby: JIM DYKES MD on 12/25/2021 09:35 AMCBC W/PLT COUNT & AUTO DIFFERENTIAL 2021-12-25 04:20:55 Test Item Value Reference Range Interpretation Comments WHITE BLOOD CELL COUNT (BEAKER) 12.0 K/ L 3.5-10.5 H (test code = 775) RED BLOOD CELL COUNT (BEAKER) 3.14 M/ L 4.63-6.08 L (test code = 761) HEMOGLOBIN (BEAKER) (test code = 8.4 GM/DL 13.7-17.5 L 410) HEMATOCRIT (BEAKER) (test code = 25.9 % 40.1-51.0 L 411) MEAN CORPUSCULAR VOLUME (BEAKER) 82.5 fL 79.0-92.2 (test code = 753) MEAN CORPUSCULAR HEMOGLOBIN 26.8 pg 25.7-32.2 (BEAKER) (test code = 751) MEAN CORPUSCULAR HEMOGLOBIN CONC 32.4 GM/DL 32.3-36.5 (BEAKER) (test code = 752) RED CELL DISTRIBUTION WIDTH 13.6 % 11.6-14.4 (BEAKER) (test code = 412) PLATELET COUNT (BEAKER) (test 554 K/CU MM 150-450 H code = 756) MEAN PLATELET VOLUME (BEAKER) 8.7 fL 9.4-12.4 L (test code = 754) NUCLEATED RED BLOOD CELLS 0 /100 WBC 0-0 (BEAKER) (test code = 413) NEUTROPHILS RELATIVE PERCENT 71 % (BEAKER) (test code = 429) LYMPHOCYTES RELATIVE PERCENT 15 % (BEAKER) (test code = 430) MONOCYTES RELATIVE PERCENT 8 % (BEAKER) (test code = 431) EOSINOPHILS RELATIVE PERCENT 4 % (BEAKER) (test code = 432) BASOPHILS RELATIVE PERCENT 0 % (BEAKER) (test code = 437) NEUTROPHILS ABSOLUTE COUNT 8.49 K/ L 1.78-5.38 H (BEAKER) (test code = 670) LYMPHOCYTES ABSOLUTE COUNT 1.74 K/ L 1.32-3.57 (BEAKER) (test code = 414) MONOCYTES ABSOLUTE COUNT (BEAKER) 0.93 K/ L 0.30-0.82 H (test code = 415) EOSINOPHILS ABSOLUTE COUNT 0.45 K/ L 0.04-0.54 (BEAKER) (test code = 416) BASOPHILS ABSOLUTE COUNT (BEAKER) 0.05 K/ L 0.01-0.08 (test code = 417) IMMATURE GRANULOCYTES-RELATIVE 2 % 0-1 H PERCENT (BEAKER) (test code = 2801) BUN AND CREATININE [id number] 04:03:16 Test Item Value Reference Range Interpretation Comments BLOOD UREA NITROGEN 13 mg/dL 7-21 (BEAKER) (test code = 354) CREATININE (BEAKER) 1.19 mg/dL 0.57-1.25 (test code = 358) BUN/CREAT RATIO 11 For a normal (BEAKER) (test code individu al on a = [id number]) normal diet, t he reference inter edward for the mass ra luis ranges between 12:1 and 20:1 (BUN i n mg/dL/creatinin e in mg/dL) EGFR (BEAKER) (test 71 mL/min/1.73 ESTIMA AMBAR GFR IS code = 1092) sq m NOT ACCURATE CREATININE CLEARANCE IN PREDICTING GLOMERULAR FILTRATION RATE . ESTIMATED GFR I S NOT APPLICABLE FOR DIALYSIS PATIEN TS. Coldfusion ID - [place] WGENTAMICIN LEVEL, [id number] 23:05:08 Test Item Value Reference Range Interpretation Comments GENTAMICIN RANDOM (BEAKER) (test 3.90 ug/mL code = 653) Reference Range: No NormalsRAD, CHEST, 1 VIEW, NON [id number] 14:34:00Reason for exam:->CT removal [facility] : 1990 Sex: MFINAL REPORT Exam: RAD, CHEST, 1 VIEW, NON DEPTDate: 12/24/2021 2:34 PM Indication: Chest tube removal Comparison: CXR of earlier the same day FINDINGS: Lines/Tubes:Interval removal of left basilar chest tube. Lungs:Stable lung volumes. Unchanged mild left basilar opacities. Pleura:Trace left pleural effusion. No pneumothorax status post left chest tube removal. Hea rt/Mediastinum:The cardiomediastinal silhouette is normal in size and contour. Bones/Soft Tissues: No acute osseous injury. Abdomen: No free air below the diaphragm. IMPRESSION:No pneumothorax status post interval left chest tube removal. Signed: Marisela Cox MDReport Verified Date/Time: 12/24/2021 14:34:41 VANCOMYCIN LEVEL, [id number] 14:15:08 Test Item Value Reference Range Interpretation Comments VANCOMYCIN TROUGH (BEAKER) (test 11.4 ug/mL 10.0-20.0 code = 522) Coldfusion ID - DBRAD, CHEST, 1 VIEW, NON [id number] 09:34:00Reason for exam:- >chest tubes in placeShould this be performed at the bedside?->Yes [facility] : 1990 Sex: MFINAL REPORT TECHNIQUE: Frontal view of the chest. INDICATION:chest tubes in place COMPARISON:Prior day. DISCUSSION:Limited evaluation due to portable technique. Lines and hardware: Stable left basilar chest tube. Left medial approach chest tube has been removed.Overlying EKG leads are noted.Heart and mediastinum: Stable.Lungs and pleura: Right lung is clear. Persistent left basilar streaky opacities are noted. No discernible pneumothorax.Soft tissues and bones: No acute abnormality. IMPRESSION:Interval removal of the left medial chest tube with stable left basilar chest tube. No discernible pneumothorax.Otherwise stable exam. Signed: Afsaneh Hurtado MDReport Verified Date/Time: 12/24/2021 09:34:18 Reading Location: [facility] Radiology Reading Room ANAEROBIC [id number] 09:31:54 Test Item Value Reference Range Interpretation Comments CULTURE (BEAKER) (test No anaerobes isolated code = 1095) CBC W/PLT COUNT & AUTO [id number] 04:39:49 Test Item Value Reference Range Interpretation Comments WHITE BLOOD CELL COUNT (BEAKER) 10.7 K/ L 3.5-10.5 H (test code = 775) RED BLOOD CELL COUNT (BEAKER) 3.21 M/ L 4.63-6.08 L (test code = 761) HEMOGLOBIN (BEAKER) (test code = 8.5 GM/DL 13.7-17.5 L 410) HEMATOCRIT (BEAKER) (test code = 26.6 % 40.1-51.0 L 411) MEAN CORPUSCULAR VOLUME (BEAKER) 82.9 fL 79.0-92.2 (test code = 753) MEAN CORPUSCULAR HEMOGLOBIN 26.5 pg 25.7-32.2 (BEAKER) (test code = 751) MEAN CORPUSCULAR HEMOGLOBIN CONC 32.0 GM/DL 32.3-36.5 L (BEAKER) (test code = 752) RED CELL DISTRIBUTION WIDTH 13.4 % 11.6-14.4 (BEAKER) (test code = 412) PLATELET COUNT (BEAKER) (test 529 K/CU MM 150-450 H code = 756) MEAN PLATELET VOLUME (BEAKER) 8.3 fL 9.4-12.4 L (test code = 754) NUCLEATED RED BLOOD CELLS 0 /100 WBC 0-0 (BEAKER) (test code = 413) NEUTROPHILS RELATIVE PERCENT 64 % (BEAKER) (test code = 429) LYMPHOCYTES RELATIVE PERCENT 16 % (BEAKER) (test code = 430) MONOCYTES RELATIVE PERCENT 9 % (BEAKER) (test code = 431) EOSINOPHILS RELATIVE PERCENT 5 % (BEAKER) (test code = 432) BASOPHILS RELATIVE PERCENT 1 % (BEAKER) (test code = 437) NEUTROPHILS ABSOLUTE COUNT 6.81 K/ L 1.78-5.38 H (BEAKER) (test code = 670) LYMPHOCYTES ABSOLUTE COUNT 1.73 K/ L 1.32-3.57 (BEAKER) (test code = 414) MONOCYTES ABSOLUTE COUNT (BEAKER) 0.98 K/ L 0.30-0.82 H (test code = 415) EOSINOPHILS ABSOLUTE COUNT 0.48 K/ L 0.04-0.54 (BEAKER) (test code = 416) BASOPHILS ABSOLUTE COUNT (BEAKER) 0.09 K/ L 0.01-0.08 H (test code = 417) IMMATURE GRANULOCYTES-RELATIVE 5 % 0-1 H PERCENT (BEAKER) (test code = 2801) SURGICALLY OBTAINED CULTURE + GRAM [id number] 13:22:32 Test Item Value Reference Range Interpretation Comments CULTURE (BEAKER) (test code No growth = 1095) GRAM STAIN RESULT (BEAKER) 1+ WBCs (test code = 1123) GRAM STAIN RESULT (BEAKER) No organisms seen (test code = 56135) SURGICALLY OBTAINED CULTURE + GRAM [id number] 13:21:44 Test Item Value Reference Range Interpretation Comments CULTURE (BEAKER) (test code No growth = 1095) GRAM STAIN RESULT (BEAKER) 2+ WBCs (test code = 1123) GRAM STAIN RESULT (BEAKER) No organisms seen (test code = 78795) (CELLAVISION MANUAL DIFF)2021-12-23 11:48:02 Test Item Value Reference Range Interpretation Comments NEUTROPHILS - REL 67 % (CELLAVISION)(BEAKER) (test code = 2816) LYMPHOCYTES - REL 6 % (CELLAVISION)(BEAKER) (test code = 2817) MONOCYTES - REL 8 % (CELLAVISION)(BEAKER) (test code = 2818) EOSINOPHILS - REL 13 % (CELLAVISION)(BEAKER) (test code = 2819) ATYPICAL LYMPHOCYTES - REL 6 % 0-0 H (CELLAVISION)(BEAKER) (test code = 2829) NEUTROPHILS - ABS 9.18 K/ul 1.78-5.38 H (CELLAVISION)(BEAKER) (test code = 2830) LYMPHOCYTES - ABS 0.82 K/ul 1.32-3.57 L (CELLAVISION)(BEAKER) (test code = 2831) MONOCYTES - ABS 1.10 K/uL 0.30-0.82 H (CELLAVISION)(BEAKER) (test code = 2832) EOSINOPHILS - ABS 1.78 K/uL 0.04-0.54 H (CELLAVISION)(BEAKER) (test code = 2834) ATYPICAL LYMPHOCYTES - ABS 0.82 K/uL 0.00-0.00 H (CELLAVISION)(BEAKER) (test code = 2858) TOTAL COUNTED (BEAKER) (test code = 100 1351) RBC MORPHOLOGY (BEAKER) (test code Normal = 762) GIANT PLATELETS (BEAKER) (test code Present = 313) PLASMACYTOID LYMPHS(BEAKER) (test Present code = 1677) ARTIFACT (CELLAVISION)(BEAKER) Present (test code = 3432) PLATELET CONCENTRATION Increased (CELLAVISION)(BEAKER) (test code = 3438) Coldfusion ID - Jaymiese Graves Nyasia comments: Slide comments:CBC W/PLT COUNT & AUTO [id number] 11:48:01 Test Item Value Reference Range Interpretation Comments WHITE BLOOD CELL COUNT (BEAKER) 13.7 K/ L 3.5-10.5 H (test code = 775) RED BLOOD CELL COUNT (BEAKER) 3.15 M/ L 4.63-6.08 L (test code = 761) HEMOGLOBIN (BEAKER) (test code = 8.4 GM/DL 13.7-17.5 L 410) HEMATOCRIT (BEAKER) (test code = 26.1 % 40.1-51.0 L 411) MEAN CORPUSCULAR VOLUME (BEAKER) 82.9 fL 79.0-92.2 (test code = 753) MEAN CORPUSCULAR HEMOGLOBIN 26.7 pg 25.7-32.2 (BEAKER) (test code = 751) MEAN CORPUSCULAR HEMOGLOBIN CONC 32.2 GM/DL 32.3-36.5 L (BEAKER) (test code = 752) RED CELL DISTRIBUTION WIDTH 13.4 % 11.6-14.4 (BEAKER) (test code = 412) PLATELET COUNT (BEAKER) (test 545 K/CU MM 150-450 H code = 756) MEAN PLATELET VOLUME (BEAKER) 8.2 fL 9.4-12.4 L (test code = 754) NUCLEATED RED BLOOD CELLS 0 /100 WBC 0-0 (BEAKER) (test code = 413) RAPID STREP A [id number] 10:25:03 Test Item Value Reference Range Interpretation Comments STREP A ANTIGEN (BEAKER) (test code Negative = 556) RAD, CHEST, 1 VIEW, NON [id number] 08:23:00Reason for exam:->chest tubes in placeShould this be performed at the bedside?->Yes [facility] : 1990 Sex: MFINAL REPORT RAD, CHEST, 1 VIEW, NON DEPT INDICATION: chest tubes in place COMPARISON: Prior day's exam FINDINGS: Portable frontal view of the chest. IMPRESSION: Support Lines: Left chest tube. Lungs and pleura: Lungs are hypoinflated. Basilar atelectasis is unchanged. No significant pneumothorax. Heart and mediastinum: Stable contours. Stable surgical changes. Additional findings: None. Signed: Lacy Wang Verified Date/Time: 12/23/2021 08:23:46 [id number] 04:51:15 Test Item Value Reference Range Interpretation Comments MAGNESIUM (BEAKER) (test code = 1.9 mg/dL 1.6-2.6 627) Coldfusion ID - JANEL GBASIC METABOLIC [id number] 04:51:14 Test Item Value Reference Range Interpretation Comments SODIUM (BEAKER) 135 meq/L 136-145 L (test code = 381) POTASSIUM (BEAKER) 4.5 meq/L 3.5-5.1 (test code = 379) CHLORIDE (BEAKER) 101 meq/L 98-107 (test code = 382) CO2 (BEAKER) (test 26 meq/L 22-29 code = 355) BLOOD UREA NITROGEN 10 mg/dL 7-21 (BEAKER) (test code = 354) CREATININE (BEAKER) 0.69 mg/dL 0.57-1.25 (test code = 358) GLUCOSE RANDOM 93 mg/dL 70-105 (BEAKER) (test code = 652) CALCIUM (BEAKER) 8.5 mg/dL 8.4-10.2 (test code = 697) EGFR (BEAKER) (test 134 mL/min/1.73 ESTIM ATED GFR IS code = 1092) sq m NOT ACCURATE CREATININE CLEARANCE IN PREDICTING GLOMERULAR FILTRATION RATE . ESTIMATED GFR I S NOT APPLICABLE FOR DIALYSIS PATIEN TS. Coldfusion ID - JANEL GSARS-COV2/RT-PCR ([facility])2021-12-22 12:38:55 Test Item Value Reference Range Interpretation Comments SARS-COV2/RT-PCR (test Negative Not Detected, Negative, code = 2364990) See external report for linked test SARS-COV-[address] [facility] (test code = 9082806) Negative result for this test determines that SARS-CoV-2 RNA was not present in the specimen above the Limit of Detection (LOD). However, Negative results do not preclude SARS-CoV-2 infection and should not be used as the sole basis for treatment or patient management decisions. Negative results mustbe combined with clinical observations, patient history, and epidemiological information. A false negative result may occur if a specimen is improperly collected, transported or handled. A false negative result should be considered if patient's recent exposures or clinical presentation indicate that COVID-19 (SARS-CoV-2) is likely and diagnostic tests for other causes of illness are negative. Re-testing should be considered in cases of suspected false negatives.The limit of detection for this assay is 800 copies/mL.This SARS CoV-2 test is a real-time RT-PCR test intended for the qualitative detection of nucleic acid from SARS-CoV-2 in a nasopharyngeal swab specimen collected from individuals susp ected of COVID-19 by their healthcare provider.This test has not been Food and Drug Administration (FDA) cleared or approved. This is a modified version of an approved Emergency Use Authorization (EUA) and is in the process of review by the FDA. Once authorized by the FDA, the issued EUA will be effective until the declaration that circumstances exist justifying the authorization of the emergency use of in vitro diagnostic tests for detection and/or diagnosis of COVID-19 is terminated under Section 564(b)(2) of the Act or the EUA is revoked under Section 564(g) of the Act.Fact Sheet for Healthcare Providers:https://www.[employer].com/sites/default/files/product/documents/Fact_Shee x_QD_Bbnqnedes_Xbni_WOEI-GnX-5.pdfFact Sheet for Healthcare Patients:https://www.[employer].com/sites/default/files/product/ documents/Ivjn_Ujhua_Qfqdfuvo_Zcbc_NUCA-SeI-2.pdfPerforming Laboratory:[facility], [place] [address]BCIUV CULTURE 2021-12-22 10:00:51 Test Item Value Reference Range Interpretation Comments CULTURE (BEAKER) (test No growth in 5 days code = 1095) BLOOD [id number] 10:00:51 Test Item Value Reference Range Interpretation Comments CULTURE (BEAKER) (test No growth in 5 days code = 1095) The specimen volume collected for this blood culture was below the optimum (10 mL per bottle or 20 mL total). Use of lower volumes may adversely affect recovery and/or detection times of some organisms.RAD, CHEST, 1 VIEW, NON DEPT 2021-12-22 07:52:00Reason for exam:->s/p vatsShould this be performed at the bedside?->[facility] : 1990 Sex: MFINAL REPORT RAD, CHEST, 1 VIEW, NON DEPT INDICATION: s/p vats COMPARISON: Prior day's exam FINDINGS: Portable frontal view of the chest. IMPRESSION: Support Lines: Left chest tube. Overlying monitors. Lungs and pleura: Increased diffuse interstitial thickening, representing singly or in combination, interstitial edema and/or pneumonitis. Small left effusion.No significant pneumothorax. Heart and mediastinum: Stable contours. Additional findings: None. Signed: Lacy Wang Verified Date/Time: 12/22/2021 07:52:14 [id number] 06:12:25 Test Item Value Reference Range Interpretation Comments MAGNESIUM (BEAKER) (test code = 1.9 mg/dL 1.6-2.6 627) Coldfusion ID - ADMINBASIC METABOLIC [id number] 06:12:24 Test Item Value Reference Range Interpretation Comments SODIUM (BEAKER) 134 meq/L 136-145 L (test code = 381) POTASSIUM (BEAKER) 4.8 meq/L 3.5-5.1 (test code = 379) CHLORIDE (BEAKER) 101 meq/L 98-107 (test code = 382) CO2 (BEAKER) (test 27 meq/L 22-29 code = 355) BLOOD UREA NITROGEN 11 mg/dL 7-21 (BEAKER) (test code = 354) CREATININE (BEAKER) 0.69 mg/dL 0.57-1.25 (test code = 358) GLUCOSE RANDOM 89 mg/dL 70-105 (BEAKER) (test code = 652) CALCIUM (BEAKER) 8.6 mg/dL 8.4-10.2 (test code = 697) EGFR (BEAKER) (test 134 mL/min/1.73 ESTIM ATED GFR IS code = 1092) sq m NOT ACCURATE CREATININE CLEARANCE IN PREDICTING GLOMERULAR FILTRATION RATE . ESTIMATED GFR I S NOT APPLICABLE FOR DIALYSIS PATIEN TS. Coldfusion ID - ADMINCBC W/PLT COUNT & AUTO [id number] 05:47:01 Test Item Value Reference Range Interpretation Comments WHITE BLOOD CELL COUNT (BEAKER) 15.0 K/ L 3.5-10.5 H (test code = 775) RED BLOOD CELL COUNT (BEAKER) 3.65 M/ L 4.63-6.08 L (test code = 761) HEMOGLOBIN (BEAKER) (test code = 9.5 GM/DL 13.7-17.5 L 410) HEMATOCRIT (BEAKER) (test code = 30.6 % 40.1-51.0 L 411) MEAN CORPUSCULAR VOLUME (BEAKER) 83.8 fL 79.0-92.2 (test code = 753) MEAN CORPUSCULAR HEMOGLOBIN 26.0 pg 25.7-32.2 (BEAKER) (test code = 751) MEAN CORPUSCULAR HEMOGLOBIN CONC 31.0 GM/DL 32.3-36.5 L (BEAKER) (test code = 752) RED CELL DISTRIBUTION WIDTH 13.5 % 11.6-14.4 (BEAKER) (test code = 412) PLATELET COUNT (BEAKER) (test 578 K/CU MM 150-450 H code = 756) MEAN PLATELET VOLUME (BEAKER) 8.1 fL 9.4-12.4 L (test code = 754) NUCLEATED RED BLOOD CELLS 0 /100 WBC 0-0 (BEAKER) (test code = 413) NEUTROPHILS RELATIVE PERCENT 68 % (BEAKER) (test code = 429) LYMPHOCYTES RELATIVE PERCENT 15 % (BEAKER) (test code = 430) MONOCYTES RELATIVE PERCENT 9 % (BEAKER) (test code = 431) EOSINOPHILS RELATIVE PERCENT 2 % (BEAKER) (test code = 432) BASOPHILS RELATIVE PERCENT 1 % (BEAKER) (test code = 437) NEUTROPHILS ABSOLUTE COUNT 10.23 K/ L 1.78-5.38 H (BEAKER) (test code = 670) LYMPHOCYTES ABSOLUTE COUNT 2.28 K/ L 1.32-3.57 (BEAKER) (test code = 414) MONOCYTES ABSOLUTE COUNT (BEAKER) 1.39 K/ L 0.30-0.82 H (test code = 415) EOSINOPHILS ABSOLUTE COUNT 0.34 K/ L 0.04-0.54 (BEAKER) (test code = 416) BASOPHILS ABSOLUTE COUNT (BEAKER) 0.09 K/ L 0.01-0.08 H (test code = 417) IMMATURE GRANULOCYTES-RELATIVE 5 % 0-1 H PERCENT (BEAKER) (test code = 2801) [id number] 10:12:04 Test Item Value Reference Range Interpretation Comments MAGNESIUM (BEAKER) (test code = 2.0 mg/dL 1.6-2.6 627) Coldfusion ID - [place] WBASIC METABOLIC [id number] 10:12:03 Test Item Value Reference Range Interpretation Comments SODIUM (BEAKER) 136 meq/L 136-145 (test code = 381) POTASSIUM (BEAKER) 4.1 meq/L 3.5-5.1 (test code = 379) CHLORIDE (BEAKER) 102 meq/L 98-107 (test code = 382) CO2 (BEAKER) (test 27 meq/L 22-29 code = 355) BLOOD UREA NITROGEN 14 mg/dL 7-21 (BEAKER) (test code = 354) CREATININE (BEAKER) 0.75 mg/dL 0.57-1.25 (test code = 358) GLUCOSE RANDOM 88 mg/dL 70-105 (BEAKER) (test code = 652) CALCIUM (BEAKER) 8.5 mg/dL 8.4-10.2 (test code = 697) EGFR (BEAKER) (test 121 mL/min/1.73 ESTIM ATED GFR IS code = 1092) sq m NOT ACCURATE CREATININE CLEARANCE IN PREDICTING GLOMERULAR FILTRATION RATE . ESTIMATED GFR I S NOT APPLICABLE FOR DIALYSIS PATIEN TS. Coldfusion ID - [place] WCBC W/PLT COUNT & AUTO [id number] 09:57:50 Test Item Value Reference Range Interpretation Comments WHITE BLOOD CELL COUNT (BEAKER) 16.5 K/ L 3.5-10.5 H (test code = 775) RED BLOOD CELL COUNT (BEAKER) 3.64 M/ L 4.63-6.08 L (test code = 761) HEMOGLOBIN (BEAKER) (test code = 9.7 GM/DL 13.7-17.5 L 410) HEMATOCRIT (BEAKER) (test code = 30.4 % 40.1-51.0 L 411) MEAN CORPUSCULAR VOLUME (BEAKER) 83.5 fL 79.0-92.2 (test code = 753) MEAN CORPUSCULAR HEMOGLOBIN 26.6 pg 25.7-32.2 (BEAKER) (test code = 751) MEAN CORPUSCULAR HEMOGLOBIN CONC 31.9 GM/DL 32.3-36.5 L (BEAKER) (test code = 752) RED CELL DISTRIBUTION WIDTH 13.6 % 11.6-14.4 (BEAKER) (test code = 412) PLATELET COUNT (BEAKER) (test 642 K/CU MM 150-450 H code = 756) MEAN PLATELET VOLUME (BEAKER) 8.1 fL 9.4-12.4 L (test code = 754) NUCLEATED RED BLOOD CELLS 0 /100 WBC 0-0 (BEAKER) (test code = 413) NEUTROPHILS RELATIVE PERCENT 73 % (BEAKER) (test code = 429) LYMPHOCYTES RELATIVE PERCENT 14 % (BEAKER) (test code = 430) MONOCYTES RELATIVE PERCENT 8 % (BEAKER) (test code = 431) EOSINOPHILS RELATIVE PERCENT 2 % (BEAKER) (test code = 432) BASOPHILS RELATIVE PERCENT 1 % (BEAKER) (test code = 437) NEUTROPHILS ABSOLUTE COUNT 12.01 K/ L 1.78-5.38 H (BEAKER) (test code = 670) LYMPHOCYTES ABSOLUTE COUNT 2.27 K/ L 1.32-3.57 (BEAKER) (test code = 414) MONOCYTES ABSOLUTE COUNT (BEAKER) 1.28 K/ L 0.30-0.82 H (test code = 415) EOSINOPHILS ABSOLUTE COUNT 0.34 K/ L 0.04-0.54 (BEAKER) (test code = 416) BASOPHILS ABSOLUTE COUNT (BEAKER) 0.08 K/ L 0.01-0.08 (test code = 417) IMMATURE GRANULOCYTES-RELATIVE 3 % 0-1 H PERCENT (BEAKER) (test code = 2801) BASIC METABOLIC [id number] 10:20:57 Test Item Value Reference Range Interpretation Comments SODIUM (BEAKER) 134 meq/L 136-145 L (test code = 381) POTASSIUM (BEAKER) 4.6 meq/L 3.5-5.1 (test code = 379) CHLORIDE (BEAKER) 103 meq/L 98-107 (test code = 382) CO2 (BEAKER) (test 23 meq/L 22-29 code = 355) BLOOD UREA NITROGEN 15 mg/dL 7-21 (BEAKER) (test code = 354) CREATININE (BEAKER) 0.72 mg/dL 0.57-1.25 (test code = 358) GLUCOSE RANDOM 135 mg/dL 70-105 H (BEAKER) (test code = 652) CALCIUM (BEAKER) 8.6 mg/dL 8.4-10.2 (test code = 697) EGFR (BEAKER) (test 127 mL/min/1.73 ESTIM ATED GFR IS code = 1092) sq m NOT ACCURATE CREATININE CLEARANCE IN PREDICTING GLOMERULAR FILTRATION RATE . ESTIMATED GFR I S NOT APPLICABLE FOR DIALYSIS PATIEN TS. [employer] ID - ROSIE MSPIN/CONCENTRATION [id number] 10:19:26 Test Item Value Reference Range Interpretation Comments CONCENTRATION CHARGED (BEAKER) (test Done code = 8807) CBC (HEMOGRAM ONLY)2021-12-20 10:04:10 Test Item Value Reference Range Interpretation Comments WHITE BLOOD CELL COUNT (BEAKER) 17.2 K/ L 3.5-10.5 H (test code = 775) RED BLOOD CELL COUNT (BEAKER) 3.49 M/ L 4.63-6.08 L (test code = 761) HEMOGLOBIN (BEAKER) (test code = 9.2 GM/DL 13.7-17.5 L 410) HEMATOCRIT (BEAKER) (test code = 29.1 % 40.1-51.0 L 411) MEAN CORPUSCULAR VOLUME (BEAKER) 83.4 fL 79.0-92.2 (test code = 753) MEAN CORPUSCULAR HEMOGLOBIN 26.4 pg 25.7-32.2 (BEAKER) (test code = 751) MEAN CORPUSCULAR HEMOGLOBIN CONC 31.6 GM/DL 32.3-36.5 L (BEAKER) (test code = 752) RED CELL DISTRIBUTION WIDTH 13.6 % 11.6-14.4 (BEAKER) (test code = 412) PLATELET COUNT (BEAKER) (test 646 K/CU MM 150-450 H code = 756) MEAN PLATELET VOLUME (BEAKER) 8.3 fL 9.4-12.4 L (test code = 754) NUCLEATED RED BLOOD CELLS 0 /100 WBC 0-0 (BEAKER) (test code = 413) RAD, CHEST, 1 VIEW, NON [id number] 09:05:00Reason for exam:->s/p vatsShould this be performed at the bedside?->Yes [facility] : 1990 Sex: MFINAL REPORT Exam: RAD, CHEST, 1 VIEW, NON DEPTDate: 12/20/2021 9:04 AM Indication:s/p vatsComparison: 12/19/2021 FINDINGS: Lines/Tubes/Devices: Overlying EKG leads. Dual left chest tubes in place. Lungs/pleura:Low lung volumes. Mild interstitial prominence. Bibasilarairspace opacities, left greater than right. No pleural effusion. No pneumothorax. Heart/Mediastinum:Unchanged Bones/Soft Tissues: No acute osseous abnormality. Upper abdomen: Unremarkable. IMPRESSION: Dual left chest tubes in place.Low lung volumes.Mild interstitial prominence.Bibasilar airspace opacities, left greater than right, likely atelectasis. Signed: Jim Dykes Verified Date/Time: 12/20/2021 09:05:43 Reading Location: [facility] Radiology Reading Room RAD, CHEST, 1 VIEW, NON [id number] 22:02:00Reason for exam:->s/p decorticationShould this be performed at the bedside?->Yes [facility] B[facility]GERBuck BARNES KIRK : 1990 Sex: MFINAL REPORT EXAM/TECHNIQUE: Single view frontal radiograph ofthe chest. INDICATION: Post decortication COMPARISON: 12/19/2021 FINDINGS: Devices/Objects: Left chest tubes are present. Lungs: Hazy basilar opacities are increased. Heart/Mediastinum: No cardiomegaly.No interstitial thickening. Osseous: No acute osseous process. No suspicious osseous lesion. Upper abdomen: Unremarkable. Impression: Increased basilar opacities may represent atelectasis, aspiration, or infection. Signed: Jatin Donaldsonort Verified Date/Time: 12/19/2021 22:02:29 BLOOD [id number] 22:00:48 Test Item Value Reference Range Interpretation Comments CULTURE (BEAKER) (test No growth in 5 days code = 1095) BLOOD [id number] 22:00:47 Test Item Value Reference Range Interpretation Comments CULTURE (BEAKER) (test No growth in 5 days code = 1095) RAD, CHEST, 1 VIEW, NON [id number] 09:30:00Reason for exam:->s/p vatsShould this be performed at the bedside?->Yes [facility]ARN[facility] : 1990 Sex: MFINAL REPORT Exam: RAD, CHEST, 1 VIEW, NON DEPTDate: 12/19/2021 9:29 AM Indication:s/p vatsComparison: 12/18/2021 FINDINGS: Lines/Tubes/Devices: Interval removal of mediastinal drain. Lungs/pleura:Borderline lung volumes. Bibasilar atelectasis. No pleural effusion. Trace right apical pneumothorax. Heart/Mediastinum:Unchanged Bones/Soft Tissues: No acute osseous abnormality. Upper abdomen: Unremarkable. IMPRESSION:Interval removal of mediastinal drain.Borderline lung volumes.Bibasilar atelectasis.Trace right apical pneumothorax. Signed: Jim Dykes Verified Date/Time: 12/19/2021 09:30:22 Reading Location: [facility] Radiology Reading Room Alexa ctronically signed by: JIM DYKES MD on 12/19/2021 09:30 AM(CELLAVISION MANUAL DIFF)2021-12-18 10:56:16 Test Item Value Reference Range Interpretation Comments NEUTROPHILS - REL 87 % (CELLAVISION)(BEAKER) (test code = 2816) LYMPHOCYTES - REL 3 % (CELLAVISION)(BEAKER) (test code = 2817) MONOCYTES - REL 5 % (CELLAVISION)(BEAKER) (test code = 2818) EOSINOPHILS - REL 3 % (CELLAVISION)(BEAKER) (test code = 2819) MYELOCYTES - REL 1 % 0-0 H (CELLAVISION)(BEAKER) (test code = 2822) ATYPICAL LYMPHOCYTES - REL 1 % 0-0 H (CELLAVISION)(BEAKER) (test code = 2829) NEUTROPHILS - ABS 16.44 K/ul 1.78-5.38 H (CELLAVISION)(BEAKER) (test code = 2830) LYMPHOCYTES - ABS 0.57 K/ul 1.32-3.57 L (CELLAVISION)(BEAKER) (test code = 2831) MONOCYTES - ABS 0.95 K/uL 0.30-0.82 H (CELLAVISION)(BEAKER) (test code = 2832) EOSINOPHILS - ABS 0.57 K/uL 0.04-0.54 H (CELLAVISION)(BEAKER) (test code = 2834) MYELOCYTES-ABS 0.19 K/uL 0.00-0.00 H (CELLAVISION)(BEAKER) (test code = 2837) ATYPICAL LYMPHOCYTES - ABS 0.19 K/uL 0.00-0.00 H (CELLAVISION)(BEAKER) (test code = 2858) TOTAL COUNTED (BEAKER) (test code 100 = 1351) WBC MORPHOLOGY (BEAKER) (test code Normal = 487) PLT MORPHOLOGY (BEAKER) (test code Normal = 486) POLYCHROMATOPHILLIC RBCS(BEAKER) 1+ few (test code = 478) ARTIFACT (CELLAVISION)(BEAKER) Present (test code = 3432) PLATELET CONCENTRATION Increased (CELLAVISION)(BEAKER) (test code = 3438) [facility]fusion ID - Heidy Weinstein comments: Slide comments:CBC W/PLT COUNT & AUTO [id number] 10:56:14 Test Item Value Reference Range Interpretation Comments WHITE BLOOD CELL COUNT (BEAKER) 18.9 K/ L 3.5-10.5 H (test code = 775) RED BLOOD CELL COUNT (BEAKER) 3.43 M/ L 4.63-6.08 L (test code = 761) HEMOGLOBIN (BEAKER) (test code = 9.3 GM/DL 13.7-17.5 L 410) HEMATOCRIT (BEAKER) (test code = 28.4 % 40.1-51.0 L 411) MEAN CORPUSCULAR VOLUME (BEAKER) 82.8 fL 79.0-92.2 (test code = 753) MEAN CORPUSCULAR HEMOGLOBIN 27.1 pg 25.7-32.2 (BEAKER) (test code = 751) MEAN CORPUSCULAR HEMOGLOBIN CONC 32.7 GM/DL 32.3-36.5 (BEAKER) (test code = 752) RED CELL DISTRIBUTION WIDTH 13.2 % 11.6-14.4 (BEAKER) (test code = 412) PLATELET COUNT (BEAKER) (test 554 K/CU MM 150-450 H code = 756) MEAN PLATELET VOLUME (BEAKER) 8.3 fL 9.4-12.4 L (test code = 754) NUCLEATED RED BLOOD CELLS 0 /100 WBC 0-0 (BEAKER) (test code = 413) BASIC METABOLIC [id number] 10:28:56 Test Item Value Reference Range Interpretation Comments SODIUM (BEAKER) 131 meq/L 136-145 L (test code = 381) POTASSIUM (BEAKER) 4.1 meq/L 3.5-5.1 (test code = 379) CHLORIDE (BEAKER) 97 meq/L 98-107 L (test code = 382) CO2 (BEAKER) (test 27 meq/L 22-29 code = 355) BLOOD UREA NITROGEN 10 mg/dL 7-21 (BEAKER) (test code = 354) CREATININE (BEAKER) 0.70 mg/dL 0.57-1.25 (test code = 358) GLUCOSE RANDOM 93 mg/dL 70-105 (BEAKER) (test code = 652) CALCIUM (BEAKER) 8.8 mg/dL 8.4-10.2 (test code = 697) EGFR (BEAKER) (test 132 mL/min/1.73 ESTIM ATED GFR IS code = 1092) sq m NOT ACCURATE CREATININE CLEARANCE IN PREDICTING GLOMERULAR FILTRATION RATE . ESTIMATED GFR I S NOT APPLICABLE FOR DIALYSIS PATIEN TS. [facility]fusion ID - [place], CHEST, 1 VIEW, NON [id number] 08:21:00Reason for exam:- >s/p vatsShould this be performed at the bedside?->Yes [facility] : 1990 Sex: MFINAL REPORT Exam: RAD, CHEST, 1 VIEW, NON DEPTDate: 12/18/2021 8:19 AM Indication:s/p vatsComparison: 12/17/2021 FINDINGS: Lines/Tubes/Devices: Mediastinal drain in place. Lungs/pleura:Low lung volumes. Bibasilar airspace opacities, likely atelectasis. Trace bilateral pleural effusion. Interval decrease in size of trace right apical pneumothorax. Heart/Mediastinum:Unchanged Bones/Soft Tissues: No acute osseous abnormality. Upper abdomen: Unremarkable. IMPRESSION:Low lung volumes.Bibasilar atelectasis.Trace bilateral effusions.Interval decrease in size of trace right apical pneumothorax. Signed: Jim Dykes MDReport Verified Date/Time: 12/18/2021 08:21:34 Reading Location: [facility] Radiology Reading Room URINALYSIS W/ REFLEX URINE CULTURE 2021-12-17 18:48:23 Test Item Value Reference Range Interpretation Comments COLOR (BEAKER) (test code = 470) Yellow CLARITY (BEAKER) (test code = 469) Clear SPECIFIC GRAVITY UA (BEAKER) (test > 1.001-1.035 H code = 468) PH UA (BEAKER) (test code = 467) 6.0 5.0-8.0 PROTEIN UA (BEAKER) (test code = 20 mg/dL Negative A 464) GLUCOSE UA (BEAKER) (test code = Negative Negative 365) KETONES UA (BEAKER) (test code = Negative Negative 371) BILIRUBIN UA (BEAKER) (test code = Negative Negative 462) BLOOD UA (BEAKER) (test code = 461) Trace Negative A NITRITE UA (BEAKER) (test code = Negative Negative 465) LEUKOCYTE ESTERASE UA (BEAKER) Negative Negative (test code = 466) UROBILINOGEN UA (BEAKER) (test code 0.2 mg/dL 0.2-1.0 = 463) RBC UA (BEAKER) (test code = 519) 2 /HPF WBC UA (BEAKER) (test code = 520) 0 /HPF BACTERIA (BEAKER) (test code = 517) None Seen MUCUS (BEAKER) (test code = 1574) Rare SQUAMOUS EPITHELIAL (BEAKER) (test < /HPF code = 516) CRYSTALS, URINE (BEAKER) (test code None Seen = 1521) SOURCE(BEAKER) (test code = 2795) Coldfusion ID - [auto]Coldfusion ID - techCT, CHEST, WITH [id number] 16:53:00Unlisted Reason for Exam - Click Yes and Enter Reason Below- >YesUnlisted Reason for Exam->mediastinitis with recurrent fevers [facility] : 1990 Sex: MFINAL REPORT TECHNIQUE: CT of the chest WITH intravenous contrast. Dose modulation, iterative reconstruction, and/or weight-based adjustment of the mA/kV was utilized to reduce the radiation dose to as low as reasonably achievable. INDICATION: 31-year-old man withmediastinitis and recurrent fevers. COMPARISON: Chest CT 12/14/2021. FINDINGS: LINES/TUBES: Unchanged surgical drain terminates in the upper left mediastinum. LUNGS AND AIRWAYS: Patent central airways. Bibasilar atelectasis, with subsegmental atelectasis scattered in the remainder of both lungs. Unchanged noncalcified pulmonary nodules scattered in both lungs measure up to 5 mm. PLEURA: Persistent loculated trace bilateral pleural effusions. Decreased trace right pneumothorax. HEART AND MEDIASTINUM: Visualized thyroid gland is normal. Persistent borderline prominent mediastinal lymph nodes measureup to 1 cm and are likely reactive. Heart and pericardium are within normal limits. Persistent fat stranding in the upper mediastinum without discrete fluid collection. BONES AND SOFT TISSUES: No acute osseous abnormality. Persistent trace air in the soft tissues of the right chest wall. UPPER ABDOMEN: Unremarkable. IMPRESSION:Persistent loculated trace bilateral pleural effusions. Decreased trace right pneumothorax. Persistent fat stranding in the upper mediastinum without discrete fluid collection. Unchanged bilateral pulmonary nodules measure up to 5 mm. If patient is at high risk for lung neoplasm, then optional follow-up chest CT may be obtained in 12 months for reassessment. Otherwise, no routine follow-up imaging recommended. Signed: Vito Maya MDReport Verified Date/Time: 12/17/2021 16:53:20 Reading Location: [address] Body Reading Room CT, SOFT TISSUE NECK, [id number] 16:23:00Unlisted Reason for Exam - Click Yes and Enter Reason Below->No [facility] : 1990 Sex: MFINAL REPORT CT, SOFT TISSUE NECK, CONTRAST INDICATION: Tonsil /adenoid disorder TECHNIQUE: Postcontrast CT images of the cervical soft tissues. Multiplanar, orthogonal reformatted images were generated. DOSE REDUCTION: Dose modulation, iterative reconstruction, and/or weight-based adjustment of the mA/kV was utilized to reduce the radiation dose to as low as reasonably achievable. COMPARISON: 12/14/2021 FINDINGS: Left-sided surgical drain seen on prior exam December 14, 2021 has been removed. No recurrent fluid collection along the anterior aspect of the thyroid and strap musculature. The left-sided surgical drain remains, terminating within the mediastinum. This fluid collection within the visualized mediastinum persists, incompletely imaged. Visualized brain parenchyma is within normal limits. No obstructive paranasal sinus disease. Orbits are within normal limits. CT is insensitive for superficial mucosal lesions, which are better evaluated by direct inspection. Within these limitations the nasopharynx, hypopharynx and larynx are within normal limits. Evaluation of the oral cavity and oropharynx is limited secondary to streak artifact from dental amalgam. Within these limitations, the oral cavity and oropharynx are within normal limits. Parotid glands, submandibular glands and the thyroid gland are within normal limits. No acute osseous findings. Asthe intrathoracic findings, please see dedicated report of concomitant CT chest. IMPRESSION: Interval removal of left-sided surgical drain without recurrent fluid collection anterior to the thyroid and strap musculature. Right-sided drain remains, terminating posterior to the trachea within the mediastinum with residual fluid collection, incompletely imaged. Signed: Lacy Wang MDReport VerifiedDate/Time: 12/17/2021 16:23:59 (CELLAVISION MANUAL DIFF)2021-12-17 07:14:40 Test Item Value Reference Range Interpretation Comments NEUTROPHILS - REL 86 % (CELLAVISION)(BEAKER) (test code = 2816) LYMPHOCYTES - REL 4 % (CELLAVISION)(BEAKER) (test code = 2817) MONOCYTES - REL 8 % (CELLAVISION)(BEAKER) (test code = 2818) EOSINOPHILS - REL 1 % (CELLAVISION)(BEAKER) (test code = 2819) ATYPICAL LYMPHOCYTES - REL 1 % 0-0 H (CELLAVISION)(BEAKER) (test code = 2829) NEUTROPHILS - ABS 14.45 K/ul 1.78-5.38 H (CELLAVISION)(BEAKER) (test code = 2830) LYMPHOCYTES - ABS 0.67 K/ul 1.32-3.57 L (CELLAVISION)(BEAKER) (test code = 2831) MONOCYTES - ABS 1.34 K/uL 0.30-0.82 H (CELLAVISION)(BEAKER) (test code = 2832) EOSINOPHILS - ABS 0.17 K/uL 0.04-0.54 (CELLAVISION)(BEAKER) (test code = 2834) ATYPICAL LYMPHOCYTES - ABS 0.17 K/uL 0.00-0.00 H (CELLAVISION)(BEAKER) (test code = 2858) TOTAL COUNTED (BEAKER) (test code 100 = 1351) WBC MORPHOLOGY (BEAKER) (test code Normal = 487) GIANT PLATELETS (BEAKER) (test Present code = 313) POLYCHROMATOPHILLIC RBCS(BEAKER) 1+ few (test code = 478) ARTIFACT (CELLAVISION)(BEAKER) Present (test code = 3432) PLATELET CONCENTRATION Increased (CELLAVISION)(BEAKER) (test code = 3438) Coldfusion ID - greg Tejada comments: Slide comments:CBC W/PLT COUNT & AUTO [id number] 07:14:30 Test Item Value Reference Range Interpretation Comments WHITE BLOOD CELL COUNT (BEAKER) 16.8 K/ L 3.5-10.5 H (test code = 775) RED BLOOD CELL COUNT (BEAKER) 3.63 M/ L 4.63-6.08 L (test code = 761) HEMOGLOBIN (BEAKER) (test code = 9.7 GM/DL 13.7-17.5 L 410) HEMATOCRIT (BEAKER) (test code = 29.7 % 40.1-51.0 L 411) MEAN CORPUSCULAR VOLUME (BEAKER) 81.8 fL 79.0-92.2 (test code = 753) MEAN CORPUSCULAR HEMOGLOBIN 26.7 pg 25.7-32.2 (BEAKER) (test code = 751) MEAN CORPUSCULAR HEMOGLOBIN CONC 32.7 GM/DL 32.3-36.5 (BEAKER) (test code = 752) RED CELL DISTRIBUTION WIDTH 13.2 % 11.6-14.4 (BEAKER) (test code = 412) PLATELET COUNT (BEAKER) (test 579 K/CU MM 150-450 H code = 756) MEAN PLATELET VOLUME (BEAKER) 8.5 fL 9.4-12.4 L (test code = 754) NUCLEATED RED BLOOD CELLS 0 /100 WBC 0-0 (BEAKER) (test code = 413) RAD, CHEST, 1 VIEW, NON [id number] 07:10:00Reason for exam:->s/p vatsShould this be performed at the bedside?->Yes [facility] : 1990 Sex: MFINAL REPORT Exam: RAD, CHEST, 1 VIEW, NON DEPTDate: :09 AM Indication:s/p vatsComparison: 12/16/2021 FINDINGS: Lines/Tubes/Devices: Mediastinal surgicaldrain place. Overlying EKG leads. Lungs/pleura:Low lung volumes. Left base airspace opacity with trace of effusion. Trace right apical pneumothorax. Heart/Mediastinum:Unchanged Bones/Soft Tissues: No acute osseous abnormality. Upper abdomen: Unremarkable. IMPRESSION:Mediastinal drain unchanged.Low lung volumes.Left base airspace opacity, likely atelectasis with trace left-sided effusion.Trace right apical pneumothorax. Signed: iJm Dykes MDReport Verified Date/Time: 12/17/2021 07:10:32 Reading Location: [facility] Radiology Reading Room Electronically signed by: JIM DYKES MD on12/17/2021 07:10 [id number] 06:34:29 Test Item Value Reference Range Interpretation Comments MAGNESIUM (BEAKER) (test code = 1.9 mg/dL 1.6-2.6 627) Coldfusion ID - ROSIE MBASIC METABOLIC [id number] 06:34:28 Test Item Value Reference Range Interpretation Comments SODIUM (BEAKER) 129 meq/L 136-145 L (test code = 381) POTASSIUM (BEAKER) 4.0 meq/L 3.5-5.1 (test code = 379) CHLORIDE (BEAKER) 99 meq/L 98-107 (test code = 382) CO2 (BEAKER) (test 21 meq/L 22-29 L code = 355) BLOOD UREA NITROGEN 10 mg/dL 7-21 (BEAKER) (test code = 354) CREATININE (BEAKER) 0.70 mg/dL 0.57-1.25 (test code = 358) GLUCOSE RANDOM 108 mg/dL 70-105 H (BEAKER) (test code = 652) CALCIUM (BEAKER) 8.8 mg/dL 8.4-10.2 (test code = 697) EGFR (BEAKER) (test 132 mL/min/1.73 ESTIM ATED GFR IS code = 1092) sq m NOT ACCURATE CREATININE CLEARANCE IN PREDICTING GLOMERULAR FILTRATION RATE . ESTIMATED GFR I S NOT APPLICABLE FOR DIALYSIS PATIEN TS. [facility]fusion ID - ROSIE M(CELLAVISION MANUAL DIFF)2021-12-16 07:07:40 Test Item Value Reference Range Interpretation Comments NEUTROPHILS - REL 81 % (CELLAVISION)(BEAKER) (test code = 2816) LYMPHOCYTES - REL 7 % (CELLAVISION)(BEAKER) (test code = 2817) MONOCYTES - REL 5 % (CELLAVISION)(BEAKER) (test code = 2818) EOSINOPHILS - REL 5 % (CELLAVISION)(BEAKER) (test code = 2819) BANDS - REL (CELLAVISION)(BEAKER) 1 % 0-10 (test code = 2826) ATYPICAL LYMPHOCYTES - REL 1 % 0-0 H (CELLAVISION)(BEAKER) (test code = 2829) NEUTROPHILS - ABS 13.12 K/ul 1.78-5.38 H (CELLAVISION)(BEAKER) (test code = 2830) LYMPHOCYTES - ABS 1.13 K/ul 1.32-3.57 L (CELLAVISION)(BEAKER) (test code = 2831) MONOCYTES - ABS 0.81 K/uL 0.30-0.82 (CELLAVISION)(BEAKER) (test code = 2832) EOSINOPHILS - ABS 0.81 K/uL 0.04-0.54 H (CELLAVISION)(BEAKER) (test code = 2834) BANDS - ABS (CELLAVISION)(BEAKER) 0.16 K/uL 0.00-0.80 (test code = 2840) ATYPICAL LYMPHOCYTES - ABS 0.16 K/uL 0.00-0.00 H (CELLAVISION)(BEAKER) (test code = 2858) TOTAL COUNTED (BEAKER) (test code 100 = 1351) RBC MORPHOLOGY (BEAKER) (test code Normal = 762) WBC MORPHOLOGY (BEAKER) (test code Normal = 487) GIANT PLATELETS (BEAKER) (test Present code = 313) ARTIFACT (CELLAVISION)(BEAKER) Present (test code = 3432) PLATELET CONCENTRATION Increased (CELLAVISION)(BEAKER) (test code = 3438) [facility]fusion ID - greg Tejada comments: Slide comments:CBC W/PLT COUNT & AUTO [id number] 07:07:39 Test Item Value Reference Range Interpretation Comments WHITE BLOOD CELL COUNT (BEAKER) 16.2 K/ L 3.5-10.5 H (test code = 775) RED BLOOD CELL COUNT (BEAKER) 3.56 M/ L 4.63-6.08 L (test code = 761) HEMOGLOBIN (BEAKER) (test code = 9.6 GM/DL 13.7-17.5 L 410) HEMATOCRIT (BEAKER) (test code = 28.7 % 40.1-51.0 L 411) MEAN CORPUSCULAR VOLUME (BEAKER) 80.6 fL 79.0-92.2 (test code = 753) MEAN CORPUSCULAR HEMOGLOBIN 27.0 pg 25.7-32.2 (BEAKER) (test code = 751) MEAN CORPUSCULAR HEMOGLOBIN CONC 33.4 GM/DL 32.3-36.5 (BEAKER) (test code = 752) RED CELL DISTRIBUTION WIDTH 13.4 % 11.6-14.4 (BEAKER) (test code = 412) PLATELET COUNT (BEAKER) (test 564 K/CU MM 150-450 H code = 756) MEAN PLATELET VOLUME (BEAKER) 8.4 fL 9.4-12.4 L (test code = 754) NUCLEATED RED BLOOD CELLS 0 /100 WBC 0-0 (BEAKER) (test code = 413) RAD, CHEST, 1 VIEW, NON [id number] 07:02:00Reason for exam:->s/p vatsShould this be performed at the bedside?->Yes [facility] : 1990 Sex: MFINAL REPORT RAD, CHEST, 1 VIEW, NON DEPT INDICATION: s/p vats COMPARISON: Prior day's exam FINDINGS: Portable frontal view of the chest. IMPRESSION: Support Lines: Surgical drain overlies the superior mediastinum. Lungs and pleura: Trace left effusion and mild left basilar subsegmental atelectasis. Peural sign is faintly seen at the right lung apex without si gnificant pneumothorax. Heart and mediastinum: Stable contours. Additional findings: None. Signed: Lacy Wang MDReport Verified Date/Time: 12/16/2021 07:02:38 BASIC METABOLIC [id number] 05:22:40 Test Item Value Reference Range Interpretation Comments SODIUM (BEAKER) 131 meq/L 136-145 L (test code = 381) POTASSIUM (BEAKER) 4.1 meq/L 3.5-5.1 (test code = 379) CHLORIDE (BEAKER) 99 meq/L 98-107 (test code = 382) CO2 (BEAKER) (test 23 meq/L 22-29 code = 355) BLOOD UREA NITROGEN 11 mg/dL 7-21 (BEAKER) (test code = 354) CREATININE (BEAKER) 0.69 mg/dL 0.57-1.25 (test code = 358) GLUCOSE RANDOM 97 mg/dL 70-105 (BEAKER) (test code = 652) CALCIUM (BEAKER) 8.7 mg/dL 8.4-10.2 (test code = 697) EGFR (BEAKER) (test 134 mL/min/1.73 ESTIM ATED GFR IS code = 1092) sq m NOT ACCURATE CREATININE CLEARANCE IN PREDICTING GLOMERULAR FILTRATION RATE . ESTIMATED GFR I S NOT APPLICABLE FOR DIALYSIS PATIEN TS. Coldfusion ID - DBSARS-COV2/RT-PCR ([facility])2021-12-15 17:31:13 Test Item Value Reference Range Interpretation Comments SARS-COV2/RT-PCR (test Negative Not Detected, Negative, code = 8311587) See external report for linked test SARS-COV-2 PERFORMING LAB [facility] (test code = 0797282) Negative result for this test determines that SARS-CoV-2 RNA was not present in the specimen above the Limit of Detection (LOD). However, Negative results do not preclude SARS-CoV-2 infection and should not be used as the sole basis for treatment or patient management decisions. Negative results mustbe combined with clinical observations, patient history, and epidemiological information. A false negative result may occur if a specimen is improperly collected, transported or handled. A false negative result should be considered if patient's recent exposures or clinical presentation indicate that COVID-19 (SARS-CoV-2) is likely and diagnostic tests for other causes of illness are negative. Re-testing should be considered in cases of suspected false negatives.The limit of detection for this assay is 800 copies/mL.This SARS CoV-2 test is a real-time RT-PCR test intended for the qualitative detection of nucleic acid from SARS-CoV-2 in a nasopharyngeal swab specimen collected from individuals suspected of COVID-19 by their healthcare provider.This test has not been Food and Drug Administration (FDA) cleared or approved. This is a modified version of an approved Emergency Use Authorization (EUA) and is in the process of review by the FDA. Once authorized by the FDA, the issued EUA will be effective until the declaration that circumstances exist justifying the authorization of the emergency use of in vitro diagnostic tests for detection and/or diagnosis of COVID-19 is terminated under Section 564(b)(2) of the Act or the EUA is revoked under Section 564(g) of the Act.Fact Sheet for Healthcare Providers:https://www.[employer]/sites/default/files/product/documents/Fact_Shee k_UF_Zwrttrhcq_Qohc_AZLR-SeC-5.pdfFact Sheet for Healthcare Patients:https://www.[employer]/sites/default/files/product/ documents/Fkbk_Bgfbq_Zkiyrxbp_Svdj_KJTI-ErE-2.pdfPerforming Laboratory:[facility], [place] [address]DB, THORACENTESIS 2021-12-15 16:47:00Reason for exam:->Fevers s/p drainage mediastinal abscess, small L pleural collection, pending IRCT-guided drainage [facility] : 1990 Sex: MFINAL REPORT PROCEDURE: CT-guided aspiration of loculated left posterior pleural effusion. Dose modulation, iterative reconstruction, and/or weight-based adjustment of the mA/kV was utilized to reduce the radiation dose to as low as reasonably achievable. INDICATION: Loculated left-sided pleural effusion, fever status post drainage of mediastinal abscess. COMPARISON: CT chest 12/14/2021. SEDATION: No intravenous sedation was administered. The patient's vital signs were monitored throughout the procedure and recorded in the patient's medical record by radiology nursing. MEDICATION: None. DESCRIPTION: After obtaining informed written consent, the patient was brought to the procedure room and placed in the prone position. Preliminary CT scan revealed small loculated pleural effusion in the left posterior costophrenic sulcus. A clear path to the collection was identified. The overlying skin was prepped and draped in the usual, sterile fashion and local 2% lidocaine anesthesia was administered. Under CT guidance, 5 Setswana one-step catheter was advanced into the collection. Approximately 3 cc of purulent fluid was aspirated. Samples were sent for analysis to be ordered by the requesting physician. Post procedure scan showed no immediate complications. IMPRESSI ON:Successful CT-guided aspiration of loculated left-sided pleural effusion. Signed: Jamel Crouchort Verified Date/Time: 12/15/2021 16:47:22 Reading Location: [address] Body Reading Room RAD, CHEST, 1 VIEW, NON DEPT 2021-12-15 08:16:00Reason for exam:->s/p vatsShould this be performed at the bedside?->[facility] : 1990 Sex: MFINAL REPORT RAD, CHEST, 1 VIEW, NON DEPT INDICATION: s/p vats COMPARISON: 12/14/2021 FINDINGS: Portable frontal view of the chest. IMPRESSION: Support Lines: Surgical drain overlies the superior mediastinum. Lungs and pleura: Trace left effusion and mild left basilar subsegmental atelectasis No significant pneumothorax. Heart and mediastinum: Stable contours. Additional findings: None. Signed: Lacy Wang MDReport Verified Date/Time: 12/15/2021 08:16:19 BASIC METABOLIC [id number] 20:45:44 Test Item Value Reference Range Interpretation Comments SODIUM (BEAKER) 130 meq/L 136-145 L (test code = 381) POTASSIUM (BEAKER) 4.3 meq/L 3.5-5.1 (test code = 379) CHLORIDE (BEAKER) 98 meq/L 98-107 (test code = 382) CO2 (BEAKER) (test 25 meq/L 22-29 code = 355) BLOOD UREA NITROGEN 13 mg/dL 7-21 (BEAKER) (test code = 354) CREATININE (BEAKER) 0.70 mg/dL 0.57-1.25 (test code = 358) GLUCOSE RANDOM 127 mg/dL 70-105 H (BEAKER) (test code = 652) CALCIUM (BEAKER) 8.5 mg/dL 8.4-10.2 (test code = 697) EGFR (BEAKER) (test 132 mL/min/1.73 ESTIM ATED GFR IS code = 1092) sq m NOT ACCURATE CREATININE CLEARANCE IN PREDICTING GLOMERULAR FILTRATION RATE . ESTIMATED GFR I S NOT APPLICABLE FOR DIALYSIS PATIEN TS. [facility] ID - garland wCBC W/PLT COUNT & AUTO [id number] 20:40:40 Test Item Value Reference Range Interpretation Comments WHITE BLOOD CELL COUNT (BEAKER) 14.9 K/ L 3.5-10.5 H (test code = 775) RED BLOOD CELL COUNT (BEAKER) 3.60 M/ L 4.63-6.08 L (test code = 761) HEMOGLOBIN (BEAKER) (test code = 9.8 GM/DL 13.7-17.5 L 410) HEMATOCRIT (BEAKER) (test code = 29.2 % 40.1-51.0 L 411) MEAN CORPUSCULAR VOLUME (BEAKER) 81.1 fL 79.0-92.2 (test code = 753) MEAN CORPUSCULAR HEMOGLOBIN 27.2 pg 25.7-32.2 (BEAKER) (test code = 751) MEAN CORPUSCULAR HEMOGLOBIN CONC 33.6 GM/DL 32.3-36.5 (BEAKER) (test code = 752) RED CELL DISTRIBUTION WIDTH 13.4 % 11.6-14.4 (BEAKER) (test code = 412) PLATELET COUNT (BEAKER) (test 552 K/CU MM 150-450 H code = 756) MEAN PLATELET VOLUME (BEAKER) 8.2 fL 9.4-12.4 L (test code = 754) NUCLEATED RED BLOOD CELLS 0 /100 WBC 0-0 (BEAKER) (test code = 413) NEUTROPHILS RELATIVE PERCENT 82 % (BEAKER) (test code = 429) LYMPHOCYTES RELATIVE PERCENT 6 % (BEAKER) (test code = 430) MONOCYTES RELATIVE PERCENT 10 % (BEAKER) (test code = 431) EOSINOPHILS RELATIVE PERCENT 1 % (BEAKER) (test code = 432) BASOPHILS RELATIVE PERCENT 0 % (BEAKER) (test code = 437) NEUTROPHILS ABSOLUTE COUNT 12.23 K/ L 1.78-5.38 H (BEAKER) (test code = 670) LYMPHOCYTES ABSOLUTE COUNT 0.85 K/ L 1.32-3.57 L (BEAKER) (test code = 414) MONOCYTES ABSOLUTE COUNT (BEAKER) 1.44 K/ L 0.30-0.82 H (test code = 415) EOSINOPHILS ABSOLUTE COUNT 0.19 K/ L 0.04-0.54 (BEAKER) (test code = 416) BASOPHILS ABSOLUTE COUNT (BEAKER) 0.04 K/ L 0.01-0.08 (test code = 417) IMMATURE GRANULOCYTES-RELATIVE 1 % 0-1 PERCENT (BEAKER) (test code = 2804) [id number] 20:36:39 Test Item Value Reference Range Interpretation Comments PARTIAL THROMBOPLASTIN TIME 36.2 seconds 22.5-36.0 H (BEAKER) (test code = 760) PROTHROMBIN TIME/[id number] 20:36:01 Test Item Value Reference Range Interpretation Comments PROTIME (BEAKER) 15.2 seconds 11.9-14.2 H (test code = 759) INR (BEAKER) (test 1.22 See_Comment [Automat ed message] code = 370) The system [employer] generated this result transmitted ref erence range: <=5.90. The reference range was not used to int erpret this result as normal/abnormal . RECOMMENDED COUMADIN/WARFARIN INR THERAPY RANGESSTANDARD DOSE: 2.0 - 3.0 Includes: PROPHYLAXIS forvenous thrombosis, systemic embolization; TREATMENT for venous thrombosis and/or pulmonary embolus.HIGH RISK: Target INR is 2.5-3.5 for patients with mechanical heart valves.PT/[id number] 14:44:45 Test Item Value Reference Range Interpretation Comments PROTIME (BEAKER) (test 15.4 seconds 11.9-14.2 H code = 759) INR (BEAKER) (test 1.24 See_Comment [Automat ed code = 370) message] The sy stem which generated this result transmitted reference range : <=5.90. The reference range was not used to interpret this result as normal/abnormal . PARTIAL THROMBOPLASTIN 31.8 seconds 22.5-36.0 TIME (BEAKER) (test code = 760) RECOMMENDED COUMADIN/WARFARIN INR THERAPY RANGESSTANDARD DOSE: 2.0 - 3.0 Includes: PROPHYLAXIS forvenous thrombosis, systemic embolization; TREATMENT for venous thrombosis and/or pulmonary embolus.HIGH RISK: Target INR is 2.5-3.5 for patients with mechanical heart valves.CT, CHEST, WITH [id number] 13:07:00With PO contrastUnlisted Reason for Exam - Click Yes and Enter Reason Below->YesUnlisted Reason for Exam->mediastinal abscess [facility] : 1990 Sex: MFINAL REPORT CT of the chest, with contrast Clinical History:Unlisted Reason for Exammediastinal abscess Technique: CT of the chest is performed with intravenouscontrast administration. This exam was performed according to our departmental dose optimization program which includes automated exposure control, adjustment of the mA and/or kV according to patient'ssize and/or use of iterative reconstructive technique. Comparison Film: December 05, 2021, 2021 Discussion: There is a right-sided surgical drain that terminates in the superior mediastinum, traversing behind the esophagus. Visualized thyroid gland is normal. No supraclavicular, axillary, mediastinal or hilar lymphadenopathy. There is nonspecific fat stranding in the superior mediastinum. No drainable collection is identified. Heart is normal in size, no pericardial effusion. There aretrace bilateral pleural effusions, partially loculated, and significantly smaller since the prior exam. There is minimal atelectasis at the lung bases, aeration of the lower lobes have significantly improved compared to the prior exam. No new consolidation. No bronchiectasis or bronchial wall thickening. There is also a small loculated right pneumothorax. A right chest tube has been removed. Partially imaged upper abdomen is without worrisome findings. Bony structures are intact. There is mild degree of subcutaneous edema in the right lateral lower chest wall. Impression: Trace residual bilateral loculated pleural effusions. Small loculated right pneumothorax. Markedly improved aeration of both lower lobes. Signed: Scotty Fueport Verified Date/Time: 12/14/2021 13:07:22 Reading Location: [facility] B1 [id number] Ortho Consult Reading Room CT, SOFT TISSUE NECK, [id number] 12:18:00Unlisted Reason for Exam - Click Yes and Enter Reason Below->YesUnlisted Reason for Exam->hx of neck abscess [facility] : 1990 Sex: MFINAL REPORT EXAM: CT, SOFT TISSUE NECK, CONTRAST CLINICAL INDICATION: History of neck abscess. TECHNIQUE: Helical CT examination of the neck with IV contrast. Sagittal and coronal reformations were generated. This exam was performed according to our departmentaldose-optimization program, which includes automated exposure control, adjustment of the mA and/or kVaccording to patient size and/or use of iterative reconstruction technique. COMPARISON: 12/03/2021 CT FINDINGS: Aerodigestive Tract Structures: Nasopharynx, oropharynx, oral cavity, larynx and hypopharynx are normal. Lymph Nodes: No pathologic appearing cervical lymph nodes. Parotid Glands: NormalSubmandibular Glands: NormalThyroid Gland: Normal Included Intracranial Structures: NormalIncluded Orbits: Normal Paranasal Sinuses: NormalTympanomastoid Cavities: Normal Vascular Structures: NormalOsseous Structures: NormalIncluded Lung Apices: Mild peripheral emphysematous changes of the right lung apex. Fat stranding in the superior mediastinum with a partially imaged catheter. Soft tissues: A left lower neck drainage catheter is seen extending below the level of the parotid gland into the left jugular space and courses inferior to the right thyroid. IMPRESSION: 1.Left lower neck drainage catheter, without residual neck abscess identified.2.Significant decrease in the superior mediastinal fluid since prior exam with drainage catheter, partially imaged. Signed: Dain Rodríguez MDReport Verified Date/Time: 12/14/2021 12:18:56 Reading Location: [address] Reading Room RAD, CHEST, 1 VIEW, NON [id number] 10:12:00Reason for exam:->s/p vatsShould this be performed at the bedside?->Yes [facility] : 1990 Sex: MFINAL REPORT Exam: RAD, CHEST, 1 VIEW, NON DEPTDate: 0:09 AM Indication:s/p vatsComparison: 12/13/2021 FINDINGS: Lines/Tubes/Devices: Mediastinal surgical drain in place. Lungs/pleura:Low lung volumes. Right mid to lower streaky airspace opacities. Left base airspace opacity. No significant effusion. Interval decrease in size of right apical trace pneumothorax. Heart/Mediastinum:Unchanged Bones/Soft Tissues: No acute osseous abnormality. Upper abdomen: Unremarkable. IMPRESSION:Mediastinal surgical drain in place.Low lung volumes.Bibasilar airspace opacities, likely atelectasis.Interval decrease in size of right apical trace pneumothorax. Signed: Jim Dykes MDReport Verified Date/Time: 12/14/2021 10:12:01 Reading Location: [facility] Reading Room (CELLAVISION MANUAL DIFF)2021-12-14 07:46:55 Test Item Value Reference Range Interpretation Comments NEUTROPHILS - REL 81 % (CELLAVISION)(BEAKER) (test code = 2816) LYMPHOCYTES - REL 5 % (CELLAVISION)(BEAKER) (test code = 2817) MONOCYTES - REL 11 % (CELLAVISION)(BEAKER) (test code = 2818) EOSINOPHILS - REL 2 % (CELLAVISION)(BEAKER) (test code = 2819) ATYPICAL LYMPHOCYTES - REL 1 % 0-0 H (CELLAVISION)(BEAKER) (test code = 2829) NEUTROPHILS - ABS 12.80 K/ul 1.78-5.38 H (CELLAVISION)(BEAKER) (test code = 2830) LYMPHOCYTES - ABS 0.79 K/ul 1.32-3.57 L (CELLAVISION)(BEAKER) (test code = 2831) MONOCYTES - ABS 1.74 K/uL 0.30-0.82 H (CELLAVISION)(BEAKER) (test code = 2832) EOSINOPHILS - ABS 0.32 K/uL 0.04-0.54 (CELLAVISION)(BEAKER) (test code = 2834) ATYPICAL LYMPHOCYTES - ABS 0.16 K/uL 0.00-0.00 H (CELLAVISION)(BEAKER) (test code = 2858) TOTAL COUNTED (BEAKER) (test code 100 = 1351) PLT MORPHOLOGY (BEAKER) (test code Normal = 486) SMUDGE CELLS (BEAKER) (test code = Present 1371) POLYCHROMATOPHILLIC RBCS(BEAKER) 3+ many (test code = 478) ANISOCYTOSIS (BEAKER) (test code = 1+ few 961) MICROCYTES (BEAKER) (test code = 1+ few 965) PLATELET CONCENTRATION Increased (CELLAVISION)(BEAKER) (test code = 3438) [facility] ID - greg Tejada comments: Slide comments:CBC W/PLT COUNT & AUTO [id number] 07:46:54 Test Item Value Reference Range Interpretation Comments WHITE BLOOD CELL COUNT (BEAKER) 15.8 K/ L 3.5-10.5 H (test code = 775) RED BLOOD CELL COUNT (BEAKER) 3.92 M/ L 4.63-6.08 L (test code = 761) HEMOGLOBIN (BEAKER) (test code = 10.5 GM/DL 13.7-17.5 L 410) HEMATOCRIT (BEAKER) (test code = 32.6 % 40.1-51.0 L 411) MEAN CORPUSCULAR VOLUME (BEAKER) 83.2 fL 79.0-92.2 (test code = 753) MEAN CORPUSCULAR HEMOGLOBIN 26.8 pg 25.7-32.2 (BEAKER) (test code = 751) MEAN CORPUSCULAR HEMOGLOBIN CONC 32.2 GM/DL 32.3-36.5 L (BEAKER) (test code = 752) RED CELL DISTRIBUTION WIDTH 13.4 % 11.6-14.4 (BEAKER) (test code = 412) PLATELET COUNT (BEAKER) (test 559 K/CU MM 150-450 H code = 756) MEAN PLATELET VOLUME (BEAKER) 8.2 fL 9.4-12.4 L (test code = 754) NUCLEATED RED BLOOD CELLS 0 /100 WBC 0-0 (BEAKER) (test code = 413) BASIC METABOLIC [id number] 07:05:08 Test Item Value Reference Range Interpretation Comments SODIUM (BEAKER) 130 meq/L 136-145 L (test code = 381) POTASSIUM (BEAKER) 4.4 meq/L 3.5-5.1 (test code = 379) CHLORIDE (BEAKER) 99 meq/L 98-107 (test code = 382) CO2 (BEAKER) (test 24 meq/L 22-29 code = 355) BLOOD UREA NITROGEN 10 mg/dL 7-21 (BEAKER) (test code = 354) CREATININE (BEAKER) 0.69 mg/dL 0.57-1.25 (test code = 358) GLUCOSE RANDOM 104 mg/dL 70-105 (BEAKER) (test code = 652) CALCIUM (BEAKER) 8.9 mg/dL 8.4-10.2 (test code = 697) EGFR (BEAKER) (test 134 mL/min/1.73 ESTIM ATED GFR IS code = 1092) sq m NOT ACCURATE CREATININE CLEARANCE IN PREDICTING GLOMERULAR FILTRATION RATE . ESTIMATED GFR I S NOT APPLICABLE FOR DIALYSIS PATIEN TS. [facility] ID - GARLAND BRITTANYAD, CHEST, 1 VIEW, NON [id number] 14:27:00Reason for exam:->ChT removalShould this be performed at the bedside?->Yes [facility] : 1990 Sex: MFINAL REPORT Exam: RAD, CHEST, 1 VIEW, NON DEPTDate: :26 PM Indication:ChT removalComparison: 12/13/2021, five hours prior. FINDINGS: Lines/Tubes/Devices: Interval removal of right-sided chest tube. Mediastinal surgical drain remains in place. Lungs/pleura:Low lung volumes. Bibasilar airspace opacities. No significant effusion. Trace right apical pneumothorax. Heart/Mediastinum:Unchanged Bones/Soft Tissues: No acute osseous abnormality. Upper abdomen: Unremarkable. IMPRESSION:Interval removal of right-sided chest tube.Mediastinal surgical drain remains in place.Low lung volumes.Bibasilar airspace opacities, likely atelectasis.Trace right apical pneumothorax. Signed: Jim Dykes MDRrajort Verified Date/Time: 12/13/2021 14:27:39 Reading Location:[facility] Radiology Reading Room Electronically signed by: JIM DYKES MD on :27 PMRAD, CHEST, 1 VIEW, NON [id number] 09:43:00Reason for exam:->s/p vatsShould this be performed at the bedside?->[facility] : 1990 Sex: MFINAL REPORT Exam: RAD, CHEST, 1 VIEW, NON DEPTDate: 12/13/2021 9:42 AM Indication:s/p vatsComparison: 12/12/2021 FINDINGS: Lines/Tubes/Devices: Right chest tube andmediastinal drain unchanged. Lungs/pleura:Low lung volumes. bibasilar airspace opacities. Trace lefteffusion. No pneumothorax. Heart/Mediastinum:Unchanged Bones/Soft Tissues: No acute osseous abnormality. Upper abdomen: Unremarkable. IMPRESSION:Tube and drain as above.Low lung volumes..Bibasilar airspace opacities, likely atelectasis.Trace left pleural effusion. Signed: Jim Dykes Verified Date/Time: 12/13/2021 09:43:32 Reading Location: [facility] Radiology Reading Room Alexa ctronically signed by: JIM DYKES MD on 12/13/2021 09:43 AMRAD, CHEST, 1 VIEW, NON [id number] 14:06:00Reason for exam:->ChT removalShould this be performed at the bedside?->Yes [facility] : 1990 Sex: MFINAL REPORT Exam: RAD, CHEST, 1 VIEW, NON DEPTDate: :05 PM Indication:ChT removalComparison: Six hours prior FINDINGS: Lines/Tubes/Devices: Right apically oriented chest tube in place. Mediastinal drain in place. Lungs/pleura:Borderline lung volumes. Left base airspace opacity. Improved right base aeration. No pleural effusion. No pneumothorax. Heart/Mediastinum:Unchanged Bones/Soft Tissues: No acute osseous abnormality. Upper abdomen: Unremarkable. IMPRESSION:Tubes and drains as above.Borderline lung volumes.Improved right base aeration.Left base airspace opacity, likely atelectasis. Signed: Jim Dykesepdmitriy Verified Date/Time: 4:06:57 Reading Location: [facility] Radiology Reading Room RAD, CHEST, 1 VIEW, NON [id number] 09:27:00Reason for exam:->ChT in placeShould this be performed at the bedside?->Yes [facility] : 1990 Sex: MFINAL REPORT TECHNIQUE: One view of the chest. INDICATION: 31-year-old man with chest tube. COMPARISON: Chest radiograph 12/10/2021. FINDINGS: LINES/TUBES: Interval removal of a suspected drain which projected over the lower neck as well as one of the right chest tubes. Other lines/tubes are unchanged. LUNGS: Mild improvement in bibasilar airspace opacities. PLEURA: Unchanged small left pleural effusion. No pneumothorax. HEART AND MEDIASTINUM: Cardiomediastinal silhouette is unchanged. BONES AND SOFT TISSUES: No acute osseous abnormality. Persistent nonspecificgaseous distention of bowel loops in the left abdomen. IMPRESSION:Lines/tubes as above. Mild improvement in bibasilar airspace opacities. Otherwise, no significant change since 12/10/2021. Signed: Vito Maya Verified Date/Time: 12/12/2021 09:27:06 MRSA [id number] 09:30:39 Test Item Value Reference Range Interpretation Comments CULTURE (BEAKER) (test code No MRSA isolated = 1095) U/S, [id number] 10:39:00Laterality?->LeftReason for exam:- >left chest fluid collectionLabs to be Ordered:->Body Fluid Culture (w/Gram Stain, C\T\S)Labs to be Ordered:->Cell Count [facility] : 1990 Sex: MFINAL REPORT Exam: Ultrasound guided thoracentesis Clinical History: Left Pleural Effusion Manager [facility] Benefits[facility] [employer] [facility] Supervising Physician: Afsaneh Hurtado MD Consent: Benefits and risks were explained to the patient who gave consent to the procedure. Complication: None Immediate Procedure: The patient was placed in sitting upright position.The right posterior chest was prepped and draped in usual sterile fashion. 2% lidocaine was used as local anesthetic. Under ultrasound guidance, a thoracentesis catheter was inserted into the pleural cavity. Approximately 400 cc of clear serosanguinous was aspirated. The catheter was removed. The specimen was sent to the laboratory for further analysis. The patient tolerated the procedure well without any adverse reaction. A STAT chest x-ray was ordered. The patient left the department in stable condition. Impression: Ultrasound guided left thoracentesis. Signed: Afsaneh Hurtado Verified Date/Time: 12/10/2021 10:39:52 Reading Location: [address] Ultrasound Reading Room RAD, CHEST, 1 VIEW, NON [id number] 08:01:00Reason for exam:->s/p R VATS washout decorticationShould this be performed at the bedside?->Yes [facility]K : 1990 Sex: MFINAL REPORT Exam: RAD, CHEST, 1 VIEW, NON DEPTDate: 28:00 AM Indication:s/p R VATS washout decorticationComparison: 12/09/2021 FINDINGS: Lines/Tubes/Devices: Right apically oriented and basilar oriented chest tubes, stable. Mediastinal and neck drains in place. Lungs:Low lung volumes. Mildly prominent vascular markings with bibasilar airspace opacities. Pleura:Trace bilateral effusions. No pneumothorax. Heart/Mediastinum:Unchanged Bones/Soft Tissues: Noacute osseous abnormality. Upper abdomen: Unremarkable. IMPRESSION:Lines and tubes as above.Low lung volumes.Prominent vascular markings with bibasilar airspace opacities, likely congestion with atelectasis.Trace bilateral effusions Signed: Jim Dykes Verified Date/Time: 12/10/2021 08:01:36 [facility] [place] Reading Room BASIC METABOLIC [id number] 06:38:11 Test Item Value Reference Range Interpretation Comments SODIUM (BEAKER) 130 meq/L 136-145 L (test code = 381) POTASSIUM (BEAKER) 3.7 meq/L 3.5-5.1 (test code = 379) CHLORIDE (BEAKER) 100 meq/L 98-107 (test code = 382) CO2 (BEAKER) (test 24 meq/L 22-29 code = 355) BLOOD UREA NITROGEN 5 mg/dL 7-21 L (BEAKER) (test code = 354) CREATININE (BEAKER) 0.60 mg/dL 0.57-1.25 (test code = 358) GLUCOSE RANDOM 114 mg/dL 70-105 H (BEAKER) (test code = 652) CALCIUM (BEAKER) 8.1 mg/dL 8.4-10.2 L (test code = 697) EGFR (BEAKER) (test 157 mL/min/1.73 ESTIM ATED GFR IS code = 1092) sq m NOT ACCURATE CREATININE CLEARANCE IN PREDICTING GLOMERULAR FILTRATION RATE . ESTIMATED GFR I S NOT APPLICABLE FOR DIALYSIS PATIEN TS. [facility] ID - [id number] 06:38:11 Test Item Value Reference Range Interpretation Comments MAGNESIUM (BEAKER) (test code = 1.8 mg/dL 1.6-2.6 627) [facility] ID - DBCBC W/PLT COUNT & AUTO [id number] 06:16:11 Test Item Value Reference Range Interpretation Comments WHITE BLOOD CELL COUNT (BEAKER) 9.7 K/ L 3.5-10.5 (test code = 775) RED BLOOD CELL COUNT (BEAKER) 3.62 M/ L 4.63-6.08 L (test code = 761) HEMOGLOBIN (BEAKER) (test code = 9.8 GM/DL 13.7-17.5 L 410) HEMATOCRIT (BEAKER) (test code = 29.4 % 40.1-51.0 L 411) MEAN CORPUSCULAR VOLUME (BEAKER) 81.2 fL 79.0-92.2 (test code = 753) MEAN CORPUSCULAR HEMOGLOBIN 27.1 pg 25.7-32.2 (BEAKER) (test code = 751) MEAN CORPUSCULAR HEMOGLOBIN CONC 33.3 GM/DL 32.3-36.5 (BEAKER) (test code = 752) RED CELL DISTRIBUTION WIDTH 13.8 % 11.6-14.4 (BEAKER) (test code = 412) PLATELET COUNT (BEAKER) (test 554 K/CU MM 150-450 H code = 756) MEAN PLATELET VOLUME (BEAKER) 8.3 fL 9.4-12.4 L (test code = 754) NUCLEATED RED BLOOD CELLS 0 /100 WBC 0-0 (BEAKER) (test code = 413) NEUTROPHILS RELATIVE PERCENT 73 % (BEAKER) (test code = 429) LYMPHOCYTES RELATIVE PERCENT 16 % (BEAKER) (test code = 430) MONOCYTES RELATIVE PERCENT 8 % (BEAKER) (test code = 431) EOSINOPHILS RELATIVE PERCENT 2 % (BEAKER) (test code = 432) BASOPHILS RELATIVE PERCENT 0 % (BEAKER) (test code = 437) NEUTROPHILS ABSOLUTE COUNT 7.13 K/ L 1.78-5.38 H (BEAKER) (test code = 670) LYMPHOCYTES ABSOLUTE COUNT 1.51 K/ L 1.32-3.57 (BEAKER) (test code = 414) MONOCYTES ABSOLUTE COUNT (BEAKER) 0.77 K/ L 0.30-0.82 (test code = 415) EOSINOPHILS ABSOLUTE COUNT 0.23 K/ L 0.04-0.54 (BEAKER) (test code = 416) BASOPHILS ABSOLUTE COUNT (BEAKER) 0.01 K/ L 0.01-0.08 (test code = 417) IMMATURE GRANULOCYTES-RELATIVE 1 % 0-1 PERCENT (BEAKER) (test code = 2801) BODY FLUID CULTURE + GRAM [id number] 13:28:04 Test Item Value Reference Range Interpretation Comments CULTURE (BEAKER) (test code = 1095) No growth RAD, CHEST, 1 VIEW, NON [id number] 08:57:00Reason for exam:->s/p R VATS washout decorticationShould this be performed at the bedside?->Yes [facility] : 1990 Sex: MFINAL REPORT RAD, CHEST, 1 VIEW, NON DEPT INDICATION: s/p R VATS washout decortication COMPARISON: Prior day's exam FINDINGS: Portable frontal view of the chest.IMPRESSION: Support Lines: Multiple surgical drains overlie the lower neck and cardiac silhouette, similar to prior. Right-sided chest tubes. Lungs and pleura: Lungs remain hypoinflated. Bibasilar atelectasis and trace bilateral effusions persists. No significant pneumothorax. Heart and mediastinum:Stable contours. Additional findings: None. Signed: Lacy Wnag Verified Date/Time: 12/09/2021 08:57:19 BASIC METABOLIC PANEL 2021-12-09 06:13:16 Test Item Value Reference Range Interpretation Comments SODIUM (BEAKER) 134 meq/L 136-145 L (test code = 381) POTASSIUM (BEAKER) 3.6 meq/L 3.5-5.1 (test code = 379) CHLORIDE (BEAKER) 102 meq/L 98-107 (test code = 382) CO2 (BEAKER) (test 27 meq/L 22-29 code = 355) BLOOD UREA NITROGEN 7 mg/dL 7-21 (BEAKER) (test code = 354) CREATININE (BEAKER) 0.62 mg/dL 0.57-1.25 (test code = 358) GLUCOSE RANDOM 99 mg/dL 70-105 (BEAKER) (test code = 652) CALCIUM (BEAKER) 7.8 mg/dL 8.4-10.2 L (test code = 697) EGFR (BEAKER) (test 151 mL/min/1.73 ESTIM ATED GFR IS code = 1092) sq m NOT ACCURATE CREATININE CLEARANCE IN PREDICTING GLOMERULAR FILTRATION RATE . ESTIMATED GFR I S NOT APPLICABLE FOR DIALYSIS PATIEN TS. [facility] ID - ROSIE [id number] 06:10:23 Test Item Value Reference Range Interpretation Comments MAGNESIUM (BEAKER) (test code = 1.9 mg/dL 1.6-2.6 627) [facility] ID - ROSIE MCBC W/PLT COUNT & AUTO [id number] 06:04:51 Test Item Value Reference Range Interpretation Comments WHITE BLOOD CELL COUNT (BEAKER) 8.4 K/ L 3.5-10.5 (test code = 775) RED BLOOD CELL COUNT (BEAKER) 3.31 M/ L 4.63-6.08 L (test code = 761) HEMOGLOBIN (BEAKER) (test code = 9.0 GM/DL 13.7-17.5 L 410) HEMATOCRIT (BEAKER) (test code = 28.1 % 40.1-51.0 L 411) MEAN CORPUSCULAR VOLUME (BEAKER) 84.9 fL 79.0-92.2 (test code = 753) MEAN CORPUSCULAR HEMOGLOBIN 27.2 pg 25.7-32.2 (BEAKER) (test code = 751) MEAN CORPUSCULAR HEMOGLOBIN CONC 32.0 GM/DL 32.3-36.5 L (BEAKER) (test code = 752) RED CELL DISTRIBUTION WIDTH 14.1 % 11.6-14.4 (BEAKER) (test code = 412) PLATELET COUNT (BEAKER) (test 539 K/CU MM 150-450 H code = 756) MEAN PLATELET VOLUME (BEAKER) 8.4 fL 9.4-12.4 L (test code = 754) NUCLEATED RED BLOOD CELLS 0 /100 WBC 0-0 (BEAKER) (test code = 413) NEUTROPHILS RELATIVE PERCENT 70 % (BEAKER) (test code = 429) LYMPHOCYTES RELATIVE PERCENT 16 % (BEAKER) (test code = 430) MONOCYTES RELATIVE PERCENT 9 % (BEAKER) (test code = 431) EOSINOPHILS RELATIVE PERCENT 3 % (BEAKER) (test code = 432) BASOPHILS RELATIVE PERCENT 0 % (BEAKER) (test code = 437) NEUTROPHILS ABSOLUTE COUNT 5.86 K/ L 1.78-5.38 H (BEAKER) (test code = 670) LYMPHOCYTES ABSOLUTE COUNT 1.34 K/ L 1.32-3.57 (BEAKER) (test code = 414) MONOCYTES ABSOLUTE COUNT (BEAKER) 0.78 K/ L 0.30-0.82 (test code = 415) EOSINOPHILS ABSOLUTE COUNT 0.26 K/ L 0.04-0.54 (BEAKER) (test code = 416) BASOPHILS ABSOLUTE COUNT (BEAKER) 0.03 K/ L 0.01-0.08 (test code = 417) IMMATURE GRANULOCYTES-RELATIVE 1 % 0-1 PERCENT (BEAKER) (test code = 2801) SARS-COV2/RT-PCR ([facility])2021-12-08 11:26:55 Test Item Value Reference Range Interpretation Comments SARS-COV2/RT-PCR Negative Negative The SARS-Co V-2 target (test code = nucleic acids a re not [id number]) detected in thi s specimen. Negative result s do not preclude SARS-C oV-2 infection and s hould not be used as the candy e basis for patient managem ent decisions. Nega tive results must be combine d with clinical observ ations, patient history , and epidemiological information. A false negativ e result may occur if a spec imen is improperly estrella ected, transported or handled. This SARS CoV-2 test is a rapid, real-deonna e RT-PCR test intended for th e qualitative detection of nu cleic acid from SARS-CoV-2 in a nasopharyngeal swab specimen collected from individuals suspected of CO VID-19 by their healthcar e provider. This test has been authorized by FDA under an EUA for use by authorized laboratories. This test is only authorized for the duration of the declaration that circumstances exist justifying the authorization of emergency use of in vitro diagnostic tests for detection and/or diagnosis of COVID-19 under Section 564(b)(1) of the Federal Food, Drug and Cosmetic Act, 21 U.S.C. 360bbb- 3(b)(1), unless the authorization is terminated or revoked sooner. Fact Sheet for Healthcare Providers: https://www.Trueffect.com/Documents/Xpert%20Xpress%20SARS%20CoV-2/Fact%20Sheets/302-3802%20SARS-COV -2%20HEALTHCARE%20PROVIDERS%20FACT%20SHEET.pdf Fact Sheet for Healthcare Patients: https://www.[employer] .fr [place]/Documents/Xpert %20Xpress%20SARS%20CoV-2/Fact%20Sheets/302-3801%23OSKC-CFH-2%20PATIENT%20FACT%20 SHEET.pdfRAD, CHEST, 1 VIEW, NON [id number] 07:22:00Reason for exam:->s/p R VATS washout decorticationShould this be performed at the bedside?->Yes [facility] : 1990 Sex: MFINAL REPORT RAD, CHEST, 1 VIEW, NON DEPT INDICATION: s/p R VATS washout decortication COMPARISON: Prior day's exam FINDINGS: Portable frontal view of the chest.IMPRESSION: Support Lines: Multiple surgical drains overlie the lower neck and cardiac silhouette, similar to prior. Three right-sided chest tubes. Lungs and pleura: Lungs remain hypoinflated. Bibasilar atelectasis and trace bilateral effusions persists. No significant pneumothorax. Heart and mediastinum: Stable contours. Additional findings: None. Signed: Lacy Wang Verified Date/Time: 12/08/2021 07:22:52 BASIC METABOLIC PANEL 2021-12-08 05:43:56 Test Item Value Reference Range Interpretation Comments SODIUM (BEAKER) 132 meq/L 136-145 L (test code = 381) POTASSIUM (BEAKER) 4.2 meq/L 3.5-5.1 (test code = 379) CHLORIDE (BEAKER) 100 meq/L 98-107 (test code = 382) CO2 (BEAKER) (test 25 meq/L 22-29 code = 355) BLOOD UREA NITROGEN 6 mg/dL 7-21 L (BEAKER) (test code = 354) CREATININE (BEAKER) 0.62 mg/dL 0.57-1.25 (test code = 358) GLUCOSE RANDOM 135 mg/dL 70-105 H (BEAKER) (test code = 652) CALCIUM (BEAKER) 7.9 mg/dL 8.4-10.2 L (test code = 697) EGFR (BEAKER) (test 151 mL/min/1.73 ESTIM ATED GFR IS code = 1092) sq m NOT ACCURATE CREATININE CLEARANCE IN PREDICTING GLOMERULAR FILTRATION RATE . ESTIMATED GFR I S NOT APPLICABLE FOR DIALYSIS PATIEN TS. [facility] ID - [id number] 05:41:48 Test Item Value Reference Range Interpretation Comments MAGNESIUM (BEAKER) (test code = 2.2 mg/dL 1.6-2.6 627) [facility] ID - DBCBC W/PLT COUNT & AUTO [id number] 05:25:55 Test Item Value Reference Range Interpretation Comments WHITE BLOOD CELL COUNT (BEAKER) 15.3 K/ L 3.5-10.5 H (test code = 775) RED BLOOD CELL COUNT (BEAKER) 3.72 M/ L 4.63-6.08 L (test code = 761) HEMOGLOBIN (BEAKER) (test code = 10.0 GM/DL 13.7-17.5 L 410) HEMATOCRIT (BEAKER) (test code = 31.0 % 40.1-51.0 L 411) MEAN CORPUSCULAR VOLUME (BEAKER) 83.3 fL 79.0-92.2 (test code = 753) MEAN CORPUSCULAR HEMOGLOBIN 26.9 pg 25.7-32.2 (BEAKER) (test code = 751) MEAN CORPUSCULAR HEMOGLOBIN CONC 32.3 GM/DL 32.3-36.5 (BEAKER) (test code = 752) RED CELL DISTRIBUTION WIDTH 13.9 % 11.6-14.4 (BEAKER) (test code = 412) PLATELET COUNT (BEAKER) (test 516 K/CU MM 150-450 H code = 756) MEAN PLATELET VOLUME (BEAKER) 8.4 fL 9.4-12.4 L (test code = 754) NUCLEATED RED BLOOD CELLS 0 /100 WBC 0-0 (BEAKER) (test code = 413) NEUTROPHILS RELATIVE PERCENT 86 % (BEAKER) (test code = 429) LYMPHOCYTES RELATIVE PERCENT 5 % (BEAKER) (test code = 430) MONOCYTES RELATIVE PERCENT 8 % (BEAKER) (test code = 431) EOSINOPHILS RELATIVE PERCENT 0 % (BEAKER) (test code = 432) BASOPHILS RELATIVE PERCENT 0 % (BEAKER) (test code = 437) NEUTROPHILS ABSOLUTE COUNT 13.07 K/ L 1.78-5.38 H (BEAKER) (test code = 670) LYMPHOCYTES ABSOLUTE COUNT 0.82 K/ L 1.32-3.57 L (BEAKER) (test code = 414) MONOCYTES ABSOLUTE COUNT (BEAKER) 1.18 K/ L 0.30-0.82 H (test code = 415) EOSINOPHILS ABSOLUTE COUNT 0.01 K/ L 0.04-0.54 L (BEAKER) (test code = 416) BASOPHILS ABSOLUTE COUNT (BEAKER) 0.03 K/ L 0.01-0.08 (test code = 417) IMMATURE GRANULOCYTES-RELATIVE 1 % 0-1 PERCENT (BEAKER) (test code = 2801) RAD, CHEST, 1 VIEW, NON [id number] 03:51:00Reason for exam:->s/p R VATS washout decorticationShould this be performed at the bedside?->Yes [facility] : 1990 Sex: MFINAL REPORT RAD, CHEST, 1 VIEW, NON DEPT INDICATION: s/p R VATS washout decortication COMPARISON: Prior day's exam FINDINGS: Portable frontal view of the chest.IMPRESSION: Support Lines: Interval placement of right sided chest tubes. Otherwise unchanged support apparatus. Lungs and pleura: Right basilar consolidative airspace opacities likely reflect atelectasis and small bilateral pleural effusions. Trace right apical pneumothorax.Heart and mediastinum: Stable contours. Additional findings: None. Signed: Tuan Daily MDReport Verified Date/Time: 12/08/2021 03:51:42 BASIC METABOLIC [id number] 04:52:36 Test Item Value Reference Range Interpretation Comments SODIUM (BEAKER) 128 meq/L 136-145 L (test code = 381) POTASSIUM (BEAKER) 3.6 meq/L 3.5-5.1 (test code = 379) CHLORIDE (BEAKER) 94 meq/L 98-107 L (test code = 382) CO2 (BEAKER) (test 27 meq/L 22-29 code = 355) BLOOD UREA NITROGEN 7 mg/dL 7-21 (BEAKER) (test code = 354) CREATININE (BEAKER) 0.64 mg/dL 0.57-1.25 (test code = 358) GLUCOSE RANDOM 110 mg/dL 70-105 H (BEAKER) (test code = 652) CALCIUM (BEAKER) 8.1 mg/dL 8.4-10.2 L (test code = 697) EGFR (BEAKER) (test 146 mL/min/1.73 ESTIM ATED GFR IS code = 1092) sq m NOT ACCURATE CREATININE CLEARANCE IN PREDICTING GLOMERULAR FILTRATION RATE . ESTIMATED GFR I S NOT APPLICABLE FOR DIALYSIS PATIEN TS. [facility] ID - JANEL [id number] 04:52:36 Test Item Value Reference Range Interpretation Comments MAGNESIUM (BEAKER) (test code = 1.7 mg/dL 1.6-2.6 627) [facility] ID - JANEL GCBC W/PLT COUNT & AUTO [id number] 04:26:32 Test Item Value Reference Range Interpretation Comments WHITE BLOOD CELL COUNT (BEAKER) 14.6 K/ L 3.5-10.5 H (test code = 775) RED BLOOD CELL COUNT (BEAKER) 3.84 M/ L 4.63-6.08 L (test code = 761) HEMOGLOBIN (BEAKER) (test code = 10.3 GM/DL 13.7-17.5 L 410) HEMATOCRIT (BEAKER) (test code = 31.0 % 40.1-51.0 L 411) MEAN CORPUSCULAR VOLUME (BEAKER) 80.7 fL 79.0-92.2 (test code = 753) MEAN CORPUSCULAR HEMOGLOBIN 26.8 pg 25.7-32.2 (BEAKER) (test code = 751) MEAN CORPUSCULAR HEMOGLOBIN CONC 33.2 GM/DL 32.3-36.5 (BEAKER) (test code = 752) RED CELL DISTRIBUTION WIDTH 13.5 % 11.6-14.4 (BEAKER) (test code = 412) PLATELET COUNT (BEAKER) (test 501 K/CU MM 150-450 H code = 756) MEAN PLATELET VOLUME (BEAKER) 8.3 fL 9.4-12.4 L (test code = 754) NUCLEATED RED BLOOD CELLS 0 /100 WBC 0-0 (BEAKER) (test code = 413) NEUTROPHILS RELATIVE PERCENT 79 % (BEAKER) (test code = 429) LYMPHOCYTES RELATIVE PERCENT 10 % (BEAKER) (test code = 430) MONOCYTES RELATIVE PERCENT 8 % (BEAKER) (test code = 431) EOSINOPHILS RELATIVE PERCENT 1 % (BEAKER) (test code = 432) BASOPHILS RELATIVE PERCENT 0 % (BEAKER) (test code = 437) NEUTROPHILS ABSOLUTE COUNT 11.48 K/ L 1.78-5.38 H (BEAKER) (test code = 670) LYMPHOCYTES ABSOLUTE COUNT 1.48 K/ L 1.32-3.57 (BEAKER) (test code = 414) MONOCYTES ABSOLUTE COUNT (BEAKER) 1.20 K/ L 0.30-0.82 H (test code = 415) EOSINOPHILS ABSOLUTE COUNT 0.19 K/ L 0.04-0.54 (BEAKER) (test code = 416) BASOPHILS ABSOLUTE COUNT (BEAKER) 0.02 K/ L 0.01-0.08 (test code = 417) IMMATURE GRANULOCYTES-RELATIVE 1 % 0-1 PERCENT (BEAKER) (test code = 2801) RAD, CHEST, 1 VIEW, NON [id number] 16:54:00Reason for exam:->s/p left thoracentesisShould this be performed at the bedside?->Yesin [facility] : 1990 Sex: MFINAL REPORT Exam: RAD, CHEST, 1 VIEW, NON DEPTDate: 24:52 PM Indication:s/p left thoracentesisComparison: 12/04/2021 FINDINGS: Lines/Tubes/Devices: Right apically oriented chest tube. Neck and mediastinal surgical drains in place. Lungs/pleura:Low lung volumes. Bibasilar airspace opacities. Trace bilateral effusions. No pneumothorax seen at this time. Hea rt/Mediastinum:Unchanged Bones/Soft Tissues: No acute osseous abnormality. Upper abdomen: Prominent loops of large and small bowel. IMPRESSION:Tubes and drains as above.Low lung volumes with bibasilarairspace opacities, likely atelectasis. Trace bilateral effusions.No pneumothorax is mediastinum. Signed: Jim Dykes MDReport Verified Date/Time: 12/06/2021 16:54:38 Reading Location: [address] Transitional Reading Room BODY FLUID CELL COUNT WITH [id number] 16:35:59 Test Item Value Reference Range Interpretation Comments APPEARANCE FLUID Turbid Clear A (BEAKER) (test code = 510) COLOR FLUID Bentley Colorless, Straw A (BEAKER) (test code = 511) RBC FLUID (BEAKER) 74291 /cu mm See_Comment H [Automat ed (test code = 513) message] T he system which generated this result transmit ambar reference range : <=1. The refere nce range was not u sed to interpret th is result as normal/abnormal . ADJUSTED WBC FLUID 34230 /cu mm See_Comment H [Automat ed (BEAKER) (test code message] The = 1691) system which generated this result transmit ambar reference range : <=5. The refere nce range was not u sed to interpret th is result as normal/abnormal . LINING CELLS 0 /cu mm See_Comment [Automated (BEAKER) (test code message] The = 1590) system which generated this result transmit ambar reference range : <=1. The refere nce range was not u sed to interpret th is result as normal/abnormal . NEUTROPHILS FLUID 72 % (BEAKER) (test code = 1656) LYMPHS FLUID 4 % (BEAKER) (test code = 488) MONO/MACROPHAGE 24 % FLUID (BEAKER) (test code = 489) EOSINOPHILS FLUID 0 % (BEAKER) (test code = 491) BASO FLUID (BEAKER) 0 % (test code = 492) CONTAINER BODY Sterile Container FLUID (BEAKER) (test code = 2873) ANAEROBIC [id number] 12:39:35 Test Item Value Reference Range Interpretation Comments CULTURE (BEAKER) (test No anaerobes isolated code = 1095) ANAEROBIC [id number] 12:38:10 Test Item Value Reference Range Interpretation Comments CULTURE (BEAKER) (test No anaerobes isolated code = 1095) ANAEROBIC [id number] 12:12:26 Test Item Value Reference Range Interpretation Comments CULTURE (BEAKER) (test No anaerobes isolated code = 1095) [id number] 10:09:40 Test Item Value Reference Range Interpretation Comments PROTIME (BEAKER) (test 17.0 seconds 11.9-14.2 H code = 759) INR (BEAKER) (test 1.41 See_Comment [Automat ed code = 370) message] The sy stem which generated this result transmitted reference range : <=5.90. The reference range was not used to interpret this result as normal/abnormal . PARTIAL THROMBOPLASTIN 31.5 seconds 22.5-36.0 TIME (BEAKER) (test code = 760) RECOMMENDED COUMADIN/WARFARIN INR THERAPY RANGESSTANDARD DOSE: 2.0 - 3.0 Includes: PROPHYLAXIS forvenous thrombosis, systemic embolization; TREATMENT for venous thrombosis and/or pulmonary embolus.HIGH RISK: Target INR is 2.5-3.5 for patients with mechanical heart valves.PROTHROMBIN [id number] 10:09:00 Test Item Value Reference Range Interpretation Comments PROTIME (BEAKER) 17.0 seconds 11.9-14.2 H (test code = 759) INR (BEAKER) (test 1.41 See_Comment [Automat ed message] code = 370) The system [employer] generated this result transmitted ref erence range: <=5.90. The reference range was not used to int erpret this result as normal/abnormal . RECOMMENDED COUMADIN/WARFARIN INR THERAPY RANGESSTANDARD DOSE: 2.0 - 3.0 Includes: PROPHYLAXIS forvenous thrombosis, systemic embolization; TREATMENT for venous thrombosis and/or pulmonary embolus.HIGH RISK: Target INR is 2.5-3.5 for patients with mechanical heart valves.BASIC METABOLIC [id number] 07:34:49 Test Item Value Reference Range Interpretation Comments SODIUM (BEAKER) 126 meq/L 136-145 L (test code = 381) POTASSIUM (BEAKER) 3.9 meq/L 3.5-5.1 (test code = 379) CHLORIDE (BEAKER) 94 meq/L 98-107 L (test code = 382) CO2 (BEAKER) (test 23 meq/L 22-29 code = 355) BLOOD UREA NITROGEN 6 mg/dL 7-21 L (BEAKER) (test code = 354) CREATININE (BEAKER) 0.67 mg/dL 0.57-1.25 (test code = 358) GLUCOSE RANDOM 122 mg/dL 70-105 H (BEAKER) (test code = 652) CALCIUM (BEAKER) 8.5 mg/dL 8.4-10.2 (test code = 697) EGFR (BEAKER) (test 138 mL/min/1.73 ESTIM ATED GFR IS code = 1092) sq m NOT ACCURATE CREATININE CLEARANCE IN PREDICTING GLOMERULAR FILTRATION RATE . ESTIMATED GFR I S NOT APPLICABLE FOR DIALYSIS PATIEN TS. [facility] ID - [id number] 07:34:49 Test Item Value Reference Range Interpretation Comments MAGNESIUM (BEAKER) (test code = 1.6 mg/dL 1.6-2.6 627) [facility] ID - BSCBC W/PLT COUNT & AUTO [id number] 07:10:28 Test Item Value Reference Range Interpretation Comments WHITE BLOOD CELL COUNT (BEAKER) 16.5 K/ L 3.5-10.5 H (test code = 775) RED BLOOD CELL COUNT (BEAKER) 4.41 M/ L 4.63-6.08 L (test code = 761) HEMOGLOBIN (BEAKER) (test code = 12.0 GM/DL 13.7-17.5 L 410) HEMATOCRIT (BEAKER) (test code = 36.1 % 40.1-51.0 L 411) MEAN CORPUSCULAR VOLUME (BEAKER) 81.9 fL 79.0-92.2 (test code = 753) MEAN CORPUSCULAR HEMOGLOBIN 27.2 pg 25.7-32.2 (BEAKER) (test code = 751) MEAN CORPUSCULAR HEMOGLOBIN CONC 33.2 GM/DL 32.3-36.5 (BEAKER) (test code = 752) RED CELL DISTRIBUTION WIDTH 13.5 % 11.6-14.4 (BEAKER) (test code = 412) PLATELET COUNT (BEAKER) (test 519 K/CU MM 150-450 H code = 756) MEAN PLATELET VOLUME (BEAKER) 8.3 fL 9.4-12.4 L (test code = 754) NUCLEATED RED BLOOD CELLS 0 /100 WBC 0-0 (BEAKER) (test code = 413) NEUTROPHILS RELATIVE PERCENT 81 % (BEAKER) (test code = 429) LYMPHOCYTES RELATIVE PERCENT 8 % (BEAKER) (test code = 430) MONOCYTES RELATIVE PERCENT 8 % (BEAKER) (test code = 431) EOSINOPHILS RELATIVE PERCENT 1 % (BEAKER) (test code = 432) BASOPHILS RELATIVE PERCENT 0 % (BEAKER) (test code = 437) NEUTROPHILS ABSOLUTE COUNT 13.34 K/ L 1.78-5.38 H (BEAKER) (test code = 670) LYMPHOCYTES ABSOLUTE COUNT 1.24 K/ L 1.32-3.57 L (BEAKER) (test code = 414) MONOCYTES ABSOLUTE COUNT (BEAKER) 1.31 K/ L 0.30-0.82 H (test code = 415) EOSINOPHILS ABSOLUTE COUNT 0.18 K/ L 0.04-0.54 (BEAKER) (test code = 416) BASOPHILS ABSOLUTE COUNT (BEAKER) 0.04 K/ L 0.01-0.08 (test code = 417) IMMATURE GRANULOCYTES-RELATIVE 2 % 0-1 H PERCENT (BEAKER) (test code = 2801) SURGICALLY OBTAINED CULTURE + GRAM [id number] 13:55:50 Test Item Value Reference Range Interpretation Comments CULTURE (BEAKER) A 1+ Beta-hem olytic (test code = streptococcus g roup 1095) F, by serologic al grouping GRAM STAIN <1+ White blood RESULT (BEAKER) cells seen (test code = 1123) GRAM STAIN No organisms seen RESULT (BEAKER) (test code = 41682) BODY FLUID CULTURE + GRAM [id number] 11:27:06 Test Item Value Reference Range Interpretation Comments CULTURE (BEAKER) A <1+ Beta-he molytic (test code = streptococcus g roup 1095) F, by serologic al grouping GRAM STAIN 4+ WBCs RESULT (BEAKER) (test code = 1123) GRAM STAIN 4+ gram positive RESULT (BEAKER) cocci in pairs (test code = 241912) CT, CHEST, WITHOUT [id number] 09:39:00Unlisted Reason for Exam - Click Yes and Enter Reason Below->YesUnlisted Reason for Exam->evaluate for undrained fluid collections [facility] : 1990 Sex: MFINAL REPORT TECHNIQUE: CT of the chest WITHOUT intravenous contrast. Dose modulation, iterative reconstruction, and/or weight-based adjustment of the mA/kV was utilized to reduce the radiation dose to as low as reasonably achievable. INDICATION: Evaluate for undrained fluid collections. COMPARISON: Chest CT 12/03/2021. FINDINGS: ABSENCE OF INTRAVENOUS CONTRAST DECREASES SENSITIVITY FOR DETECTION OF FOCAL LESIONS AND VASCULAR PATHOLOGY. LINES/TUBES: Surgical drains terminate in the upper anterior and upper left mediastinum. Additional incompletely visualized surgical drain courses into the left neck. Right chest tube terminates along the right lung apex. LUNGS AND AIRWAYS: Patent central airways. Consolidative opacities in the bilateral lower lobes. Linear at electasis scattered in both lungs, right greater than left. PLEURA: Likely loculated right hydropneumothorax with increased small fluid component and new small air component. No significant change in size of the layering small left pleural effusion. HEART AND MEDIASTINUM: Visualized thyroid gland is normal. No significant mediastinal, hilar, or axillary lymphadenopathy. Heart and pericardium are within normal limits. Previously seen mediastinal fluid collection has essentially resolved. Small amountof pneumomediastinum. BONES AND SOFT TISSUES: No acute osseous abnormality. UPPER ABDOMEN: Unremarkable. IMPRESSION:Previously seen mediastinal fluid collection has essentially resolved. Small amount of pneumomediastinum. Likely loculated right hydropneumothorax with increased small fluid component and new small air component. No significant change in the layering small left pleural effusion. Bilateral lower lobe consolidative opacities, likely atelectasis. Superimposed pneumonia/aspiration cannot be excluded in the correct clinical setting. Signed: Vito Maya [facility] Center[facility] Verified Date/Time: 12/05/2021 09:39:06 BASIC METABOLIC [id number] 05:48:53 Test Item Value Reference Range Interpretation Comments SODIUM (BEAKER) 129 meq/L 136-145 L (test code = 381) POTASSIUM (BEAKER) 3.9 meq/L 3.5-5.1 (test code = 379) CHLORIDE (BEAKER) 97 meq/L 98-107 L (test code = 382) CO2 (BEAKER) (test 23 meq/L 22-29 code = 355) BLOOD UREA NITROGEN 8 mg/dL 7-21 (BEAKER) (test code = 354) CREATININE (BEAKER) 0.69 mg/dL 0.57-1.25 (test code = 358) GLUCOSE RANDOM 100 mg/dL 70-105 (BEAKER) (test code = 652) CALCIUM (BEAKER) 8.2 mg/dL 8.4-10.2 L (test code = 697) EGFR (BEAKER) (test 134 mL/min/1.73 ESTIM ATED GFR IS code = 1092) sq m NOT ACCURATE CREATININE CLEARANCE IN PREDICTING GLOMERULAR FILTRATION RATE . ESTIMATED GFR I S NOT APPLICABLE FOR DIALYSIS PATIEN TS. [facility] ID - [id number] 05:48:53 Test Item Value Reference Range Interpretation Comments MAGNESIUM (BEAKER) (test code = 1.5 mg/dL 1.6-2.6 L 627) [facility] ID - BSCBC W/PLT COUNT & AUTO [id number] 05:31:22 Test Item Value Reference Range Interpretation Comments WHITE BLOOD CELL COUNT (BEAKER) 14.0 K/ L 3.5-10.5 H (test code = 775) RED BLOOD CELL COUNT (BEAKER) 4.32 M/ L 4.63-6.08 L (test code = 761) HEMOGLOBIN (BEAKER) (test code = 11.7 GM/DL 13.7-17.5 L 410) HEMATOCRIT (BEAKER) (test code = 35.9 % 40.1-51.0 L 411) MEAN CORPUSCULAR VOLUME (BEAKER) 83.1 fL 79.0-92.2 (test code = 753) MEAN CORPUSCULAR HEMOGLOBIN 27.1 pg 25.7-32.2 (BEAKER) (test code = 751) MEAN CORPUSCULAR HEMOGLOBIN CONC 32.6 GM/DL 32.3-36.5 (BEAKER) (test code = 752) RED CELL DISTRIBUTION WIDTH 13.8 % 11.6-14.4 (BEAKER) (test code = 412) PLATELET COUNT (BEAKER) (test 443 K/CU MM 150-450 code = 756) MEAN PLATELET VOLUME (BEAKER) 8.3 fL 9.4-12.4 L (test code = 754) NUCLEATED RED BLOOD CELLS 0 /100 WBC 0-0 (BEAKER) (test code = 413) NEUTROPHILS RELATIVE PERCENT 76 % (BEAKER) (test code = 429) LYMPHOCYTES RELATIVE PERCENT 13 % (BEAKER) (test code = 430) MONOCYTES RELATIVE PERCENT 8 % (BEAKER) (test code = 431) EOSINOPHILS RELATIVE PERCENT 2 % (BEAKER) (test code = 432) BASOPHILS RELATIVE PERCENT 0 % (BEAKER) (test code = 437) NEUTROPHILS ABSOLUTE COUNT 10.61 K/ L 1.78-5.38 H (BEAKER) (test code = 670) LYMPHOCYTES ABSOLUTE COUNT 1.77 K/ L 1.32-3.57 (BEAKER) (test code = 414) MONOCYTES ABSOLUTE COUNT (BEAKER) 1.16 K/ L 0.30-0.82 H (test code = 415) EOSINOPHILS ABSOLUTE COUNT 0.21 K/ L 0.04-0.54 (BEAKER) (test code = 416) BASOPHILS ABSOLUTE COUNT (BEAKER) 0.02 K/ L 0.01-0.08 (test code = 417) IMMATURE GRANULOCYTES-RELATIVE 2 % 0-1 H PERCENT (BEAKER) (test code = 2801) VANCOMYCIN LEVEL, [id number] 13:22:24 Test Item Value Reference Range Interpretation Comments VANCOMYCIN TROUGH (BEAKER) (test 11.1 ug/mL 10.0-20.0 code = 522) [facility] ID - HELENE JOHANA, CHEST, 1 VIEW, NON [id number] 08:38:00Reason for exam:->f/u VATS drainageShould this be performed at the bedside?->Yes [facility] : 1990 Sex: MFINAL REPORT CLINICAL HISTORY: f/u VATS drainage TECHNIQUE: 1 view of the chest. COMPARISON: 12/03/2021 IMPRESSION: The supporting lines and tubes are similar appearing. There is a new small right pneumothorax. Bilateral airspace opacities and small pleural effusions are unchanged. The cardiomediastinal silhouette is unchanged. Signed: Hui Villarreal MDReport Verified Date/Time: 12/04/2021 08:38:25 Reading Location: [facility] Radiology Reading Room HIV-1 ANTIGEN WITH HIV-1/2 [id number] 06:53:42 Test Item Value Reference Range Interpretation Comments HIV-1 ANTIGEN WITH HIV 1\T\2 Nonreactive Nonreactive ANTIBODY (2) (BEAKER) (test code = 2586) [facility] ID Shreyas GRIFFITH [id number] 06:50:46 Test Item Value Reference Range Interpretation Comments MAGNESIUM (BEAKER) (test code = 1.9 mg/dL 1.6-2.6 627) [facility] ID Shreyas HAQUE WBASIC METABOLIC [id number] 06:50:45 Test Item Value Reference Range Interpretation Comments SODIUM (BEAKER) 134 meq/L 136-145 L (test code = 381) POTASSIUM (BEAKER) 4.7 meq/L 3.5-5.1 (test code = 379) CHLORIDE (BEAKER) 103 meq/L 98-107 (test code = 382) CO2 (BEAKER) (test 25 meq/L 22-29 code = 355) BLOOD UREA NITROGEN 11 mg/dL 7-21 (BEAKER) (test code = 354) CREATININE (BEAKER) 0.73 mg/dL 0.57-1.25 (test code = 358) GLUCOSE RANDOM 105 mg/dL 70-105 (BEAKER) (test code = 652) CALCIUM (BEAKER) 8.5 mg/dL 8.4-10.2 (test code = 697) EGFR (BEAKER) (test 125 mL/min/1.73 ESTIM ATED GFR IS code = 1092) sq m NOT ACCURATE CREATININE CLEARANCE IN PREDICTING GLOMERULAR FILTRATION RATE . ESTIMATED GFR I S NOT APPLICABLE FOR DIALYSIS PATIEN TS. [employer] ID Shreyas HAQUE WCBC W/PLT COUNT & AUTO [id number] 06:12:16 Test Item Value Reference Range Interpretation Comments WHITE BLOOD CELL COUNT (BEAKER) 19.0 K/ L 3.5-10.5 H (test code = 775) RED BLOOD CELL COUNT (BEAKER) 4.14 M/ L 4.63-6.08 L (test code = 761) HEMOGLOBIN (BEAKER) (test code = 11.3 GM/DL 13.7-17.5 L 410) HEMATOCRIT (BEAKER) (test code = 34.3 % 40.1-51.0 L 411) MEAN CORPUSCULAR VOLUME (BEAKER) 82.9 fL 79.0-92.2 (test code = 753) MEAN CORPUSCULAR HEMOGLOBIN 27.3 pg 25.7-32.2 (BEAKER) (test code = 751) MEAN CORPUSCULAR HEMOGLOBIN CONC 32.9 GM/DL 32.3-36.5 (BEAKER) (test code = 752) RED CELL DISTRIBUTION WIDTH 13.5 % 11.6-14.4 (BEAKER) (test code = 412) PLATELET COUNT (BEAKER) (test 393 K/CU MM 150-450 code = 756) MEAN PLATELET VOLUME (BEAKER) 8.6 fL 9.4-12.4 L (test code = 754) NUCLEATED RED BLOOD CELLS 0 /100 WBC 0-0 (BEAKER) (test code = 413) NEUTROPHILS RELATIVE PERCENT 87 % (BEAKER) (test code = 429) LYMPHOCYTES RELATIVE PERCENT 6 % (BEAKER) (test code = 430) MONOCYTES RELATIVE PERCENT 5 % (BEAKER) (test code = 431) EOSINOPHILS RELATIVE PERCENT 0 % (BEAKER) (test code = 432) BASOPHILS RELATIVE PERCENT 0 % (BEAKER) (test code = 437) NEUTROPHILS ABSOLUTE COUNT 16.53 K/ L 1.78-5.38 H (BEAKER) (test code = 670) LYMPHOCYTES ABSOLUTE COUNT 1.15 K/ L 1.32-3.57 L (BEAKER) (test code = 414) MONOCYTES ABSOLUTE COUNT (BEAKER) 0.91 K/ L 0.30-0.82 H (test code = 415) EOSINOPHILS ABSOLUTE COUNT 0.01 K/ L 0.04-0.54 L (BEAKER) (test code = 416) BASOPHILS ABSOLUTE COUNT (BEAKER) 0.04 K/ L 0.01-0.08 (test code = 417) IMMATURE GRANULOCYTES-RELATIVE 2 % 0-1 H PERCENT (BEAKER) (test code = 2801) RAD, CHEST, 1 VIEW, NON [id number] 21:58:00Perform in PACUReason for exam:- >s/p chest tube placement during VATSShould this be performed at the bedside?->YesCHI [facility] : 1990 Sex: MFINAL REPORT EXAM/TECHNIQUE: Single view frontal radiograph of the chest. INDICATION: Status post chest tube. COMPARISON: 11/30/2021 FINDINGS: Devices/Objects: Surgical drain projects over the right chest. Lungs: Small left pleural effusion and basilar opacity is present, increased. No visible pneumothorax. Heart/Mediastinum: Similar cardiomegaly. Osseous: No acute osseous process. No suspicious osseous lesion. Upper abdomen: Unremarkable. Impression: Small leftpleural effusion, increased. Signed: Jatin Donaldson MDReport Verified Date/Time: 12/03/2021 21:58:27 SURGICALLY OBTAINED CULTURE + GRAM [id number] 13:17:33 Test Item Value Reference Range Interpretation Comments CULTURE (BEAKER) A 1+ Beta-hem olytic (test code = streptococcus g roup 1095) F, by serologic al grouping GRAM STAIN 3+ WBCs RESULT (BEAKER) (test code = 1123) GRAM STAIN 1+ gram positive RESULT (BEAKER) cocci in pairs (test code = 23332) VANCOMYCIN LEVEL, [id number] 10:47:48 Test Item Value Reference Range Interpretation Comments VANCOMYCIN TROUGH (BEAKER) (test 5.5 ug/mL 10.0-20.0 L code = 522) Coldfusion ID - DBBASIC METABOLIC [id number] 04:59:25 Test Item Value Reference Range Interpretation Comments SODIUM (BEAKER) 131 meq/L 136-145 L (test code = 381) POTASSIUM (BEAKER) 3.6 meq/L 3.5-5.1 (test code = 379) CHLORIDE (BEAKER) 103 meq/L 98-107 (test code = 382) CO2 (BEAKER) (test 23 meq/L 22-29 code = 355) BLOOD UREA NITROGEN 9 mg/dL 7-21 (BEAKER) (test code = 354) CREATININE (BEAKER) 0.66 mg/dL 0.57-1.25 (test code = 358) GLUCOSE RANDOM 94 mg/dL 70-105 (BEAKER) (test code = 652) CALCIUM (BEAKER) 7.8 mg/dL 8.4-10.2 L (test code = 697) EGFR (BEAKER) (test 141 mL/min/1.73 ESTIM ATED GFR IS code = 1092) sq m NOT ACCURATE CREATININE CLEARANCE IN PREDICTING GLOMERULAR FILTRATION RATE . ESTIMATED GFR I S NOT APPLICABLE FOR DIALYSIS PATIEN TS. Coldfusion ID - [id number] 04:54:46 Test Item Value Reference Range Interpretation Comments MAGNESIUM (BEAKER) (test code = 1.8 mg/dL 1.6-2.6 627) Coldfusion ID - DBCBC W/PLT COUNT & AUTO [id number] 04:26:21 Test Item Value Reference Range Interpretation Comments WHITE BLOOD CELL COUNT (BEAKER) 14.2 K/ L 3.5-10.5 H (test code = 775) RED BLOOD CELL COUNT (BEAKER) 4.33 M/ L 4.63-6.08 L (test code = 761) HEMOGLOBIN (BEAKER) (test code = 11.7 GM/DL 13.7-17.5 L 410) HEMATOCRIT (BEAKER) (test code = 35.4 % 40.1-51.0 L 411) MEAN CORPUSCULAR VOLUME (BEAKER) 81.8 fL 79.0-92.2 (test code = 753) MEAN CORPUSCULAR HEMOGLOBIN 27.0 pg 25.7-32.2 (BEAKER) (test code = 751) MEAN CORPUSCULAR HEMOGLOBIN CONC 33.1 GM/DL 32.3-36.5 (BEAKER) (test code = 752) RED CELL DISTRIBUTION WIDTH 13.1 % 11.6-14.4 (BEAKER) (test code = 412) PLATELET COUNT (BEAKER) (test 340 K/CU MM 150-450 code = 756) MEAN PLATELET VOLUME (BEAKER) 8.3 fL 9.4-12.4 L (test code = 754) NUCLEATED RED BLOOD CELLS 0 /100 WBC 0-0 (BEAKER) (test code = 413) NEUTROPHILS RELATIVE PERCENT 79 % (BEAKER) (test code = 429) LYMPHOCYTES RELATIVE PERCENT 11 % (BEAKER) (test code = 430) MONOCYTES RELATIVE PERCENT 7 % (BEAKER) (test code = 431) EOSINOPHILS RELATIVE PERCENT 2 % (BEAKER) (test code = 432) BASOPHILS RELATIVE PERCENT 0 % (BEAKER) (test code = 437) NEUTROPHILS ABSOLUTE COUNT 11.16 K/ L 1.78-5.38 H (BEAKER) (test code = 670) LYMPHOCYTES ABSOLUTE COUNT 1.49 K/ L 1.32-3.57 (BEAKER) (test code = 414) MONOCYTES ABSOLUTE COUNT (BEAKER) 0.95 K/ L 0.30-0.82 H (test code = 415) EOSINOPHILS ABSOLUTE COUNT 0.31 K/ L 0.04-0.54 (BEAKER) (test code = 416) BASOPHILS ABSOLUTE COUNT (BEAKER) 0.03 K/ L 0.01-0.08 (test code = 417) IMMATURE GRANULOCYTES-RELATIVE 2 % 0-1 H PERCENT (BEAKER) (test code = 2801) CT, SOFT TISSUE NECK, [id number] 01:50:00S/p I\T\D 11/30, evaluate for undrained collectionUnlisted Reason for Exam - Click Yes and Enter Reason Below->No[facility]Name: [facility] : 1990 Sex: MFINAL REPORT EXAM/TECHNIQUE: CT neck as well as chest with IV c ontrast. Dose modulation, iterative reconstruction, and/or weight based adjustment of the mA/kV was utilized to reduce the radiation dose to as low as reasonably achievable. COMPARISON: None. INDICATION: Abscess. FINDINGS: NECK A left surgical drain is present entering the left submandibular space into the left parapharyngeal space, left visceral space and into the mediastinum. Left retropharyngeal abscess is present with the main body of the abscess measuring approximately 11 x 6 x 29 mm. The abscess extends into the retropharyngeal danger space with continued extension into the posterior and medial mediastinum. The abscess also tracks from the anterior (true) retropharyngeal space into the anterior visceral space with a pretracheal abscess is present at the level of the thyroid measuring approximately 1.4 x 3.8 x 2.1 cm. Visualized brain parenchyma and intracranial vasculature is normal. Paranasal sinuses are clear. No mastoid effusion. The nasal and oral cavities are normal in appearance. The left palatine tonsil is enlarged with a tiger stripe appearance. Left submandibular fat stranding is present. Left submandibular and upper cervical lymphadenopathy is present. The epiglottis is normal in appearance. The aryepiglottic folds are normal. The true vocal cords are normal. Piriform sinuses are normal. The thyroid, arytenoid, and cricoid cartilage are normal. Bilateral parotid glands and submandibular glands are normal. The thyroid gland is normal. No acute osseous process. Multilevel spondylosis without high-grade stenosis. CHEST Parenchyma/Pleura: Small bilateral pleural effusions are present. No focal consolidation or suspicious pulmonary nodule. Airways: Unremarkable. Cardiac: The heart is normal in size. No pericardial effusion. Mediastinum/lymph nodes: Fluid is present in the mediastinum with mild adjacent inflammatory changes. Vessels: Unremarkable. Osseous: No acute osseousprocess. No suspicious osseous lesion. Upper abdomen: Unremarkable. Impression: Left retropharyngealabscess with dissection into the anterior pretracheal visceral space as well as the danger space andextension into the mediastinum where there are inflammatory changes. Signed: Jatin Donaldson MDReport Verified Date/Time: 12/03/2021 01:50:36 Electronically signed by: JATIN DONALDSON MD on 12/03 01:50 AMCT, CHEST, WITH [id number] 01:50:00S/p I\T\D of tonsillar abscess with mediastinal extension 11/30, evaluate for interval change, undrained collectionUnlisted Reason for Exam - Click Yes and Enter Reason Below->No [facility] : 1990 Sex: MFINAL REPORT EXAM/TECHNIQUE: CT neck as well as chest with IV c ontrast. Dose modulation, iterative reconstruction, and/or weight based adjustment of the mA/kV was utilized to reduce the radiation dose to as low as reasonably achievable. COMPARISON: None. INDICATION: Abscess. FINDINGS: NECK A left surgical drain is present entering the left submandibular space into the left parapharyngeal space, left visceral space and into the mediastinum. Left retropharyngeal abscess is present with the main body of the abscess measuring approximately 11 x 6 x 29 mm. The abscess extends into the retropharyngeal danger space with continued extension into the posterior and medial mediastinum. The abscess also tracks from the anterior (true) retropharyngeal space into the anterior visceral space with a pretracheal abscess is present at the level of the thyroid measuring approximately 1.4 x 3.8 x 2.1 cm. Visualized brain parenchyma and intracranial vasculature is normal. Paranasal sinuses are clear. No mastoid effusion. The nasal and oral cavities are normal in appearance. The left palatine tonsil is enlarged with a tiger stripe appearance. Left submandibular fat stranding is present. Left submandibular and upper cervical lymphadenopathy is present. The epiglottis is normal in appearance. The aryepiglottic folds are normal. The true vocal cords are normal. Piriform sinuses are normal. The thyroid, arytenoid, and cricoid cartilage are normal. Bilateral parotid glands and submandibular glands are normal. The thyroid gland is normal. No acute osseous process. Multilevel spondylosis without high-grade stenosis. CHEST Parenchyma/Pleura: Small bilateral pleural effusions are present. No focal consolidation or suspicious pulmonary nodule. Airways: Unremarkable. Cardiac: The heart is normal in size. No pericardial effusion. Mediastinum/lymph nodes: Fluid is present in the mediastinum with mild adjacent inflammatory changes. Vessels: Unremarkable. Osseous: No acute osseousprocess. No suspicious osseous lesion. Upper abdomen: Unremarkable. Impression: Left retropharyngealabscess with dissection into the anterior pretracheal visceral space as well as the danger space andextension into the mediastinum where there are inflammatory changes. Signed: Jatin Donaldson [facility] Verified Date/Time: 12/03/2021 01:50:36 Electronically signed by: JATIN DONALDSON MD on 12/03 01:50 AMBASIC METABOLIC [id number] 05:08:43 Test Item Value Reference Range Interpretation Comments SODIUM (BEAKER) 134 meq/L 136-145 L (test code = 381) POTASSIUM (BEAKER) 3.5 meq/L 3.5-5.1 (test code = 379) CHLORIDE (BEAKER) 104 meq/L 98-107 (test code = 382) CO2 (BEAKER) (test 23 meq/L 22-29 code = 355) BLOOD UREA NITROGEN 12 mg/dL 7-21 (BEAKER) (test code = 354) CREATININE (BEAKER) 0.69 mg/dL 0.57-1.25 (test code = 358) GLUCOSE RANDOM 97 mg/dL 70-105 (BEAKER) (test code = 652) CALCIUM (BEAKER) 7.7 mg/dL 8.4-10.2 L (test code = 697) EGFR (BEAKER) (test 134 mL/min/1.73 ESTIM ATED GFR IS code = 1092) sq m NOT ACCURATE CREATININE CLEARANCE IN PREDICTING GLOMERULAR FILTRATION RATE . ESTIMATED GFR I S NOT APPLICABLE FOR DIALYSIS PATIEN TS. Coldfusion ID - GLADIS [id number] 04:59:47 Test Item Value Reference Range Interpretation Comments MAGNESIUM (BEAKER) (test code = 1.8 mg/dL 1.6-2.6 627) Coldfusion ID - GLADIS LCBC W/PLT COUNT & AUTO [id number] 04:42:02 Test Item Value Reference Range Interpretation Comments WHITE BLOOD CELL COUNT (BEAKER) 14.6 K/ L 3.5-10.5 H (test code = 775) RED BLOOD CELL COUNT (BEAKER) 4.31 M/ L 4.63-6.08 L (test code = 761) HEMOGLOBIN (BEAKER) (test code = 11.8 GM/DL 13.7-17.5 L 410) HEMATOCRIT (BEAKER) (test code = 35.1 % 40.1-51.0 L 411) MEAN CORPUSCULAR VOLUME (BEAKER) 81.4 fL 79.0-92.2 (test code = 753) MEAN CORPUSCULAR HEMOGLOBIN 27.4 pg 25.7-32.2 (BEAKER) (test code = 751) MEAN CORPUSCULAR HEMOGLOBIN CONC 33.6 GM/DL 32.3-36.5 (BEAKER) (test code = 752) RED CELL DISTRIBUTION WIDTH 13.2 % 11.6-14.4 (BEAKER) (test code = 412) PLATELET COUNT (BEAKER) (test 320 K/CU MM 150-450 code = 756) MEAN PLATELET VOLUME (BEAKER) 8.6 fL 9.4-12.4 L (test code = 754) NUCLEATED RED BLOOD CELLS 0 /100 WBC 0-0 (BEAKER) (test code = 413) NEUTROPHILS RELATIVE PERCENT 75 % (BEAKER) (test code = 429) LYMPHOCYTES RELATIVE PERCENT 13 % (BEAKER) (test code = 430) MONOCYTES RELATIVE PERCENT 8 % (BEAKER) (test code = 431) EOSINOPHILS RELATIVE PERCENT 1 % (BEAKER) (test code = 432) BASOPHILS RELATIVE PERCENT 0 % (BEAKER) (test code = 437) NEUTROPHILS ABSOLUTE COUNT 11.03 K/ L 1.78-5.38 H (BEAKER) (test code = 670) LYMPHOCYTES ABSOLUTE COUNT 1.87 K/ L 1.32-3.57 (BEAKER) (test code = 414) MONOCYTES ABSOLUTE COUNT (BEAKER) 1.12 K/ L 0.30-0.82 H (test code = 415) EOSINOPHILS ABSOLUTE COUNT 0.20 K/ L 0.04-0.54 (BEAKER) (test code = 416) BASOPHILS ABSOLUTE COUNT (BEAKER) 0.04 K/ L 0.01-0.08 (test code = 417) IMMATURE GRANULOCYTES-RELATIVE 3 % 0-1 H PERCENT (BEAKER) (test code = 2801) CBC W/PLT COUNT & AUTO [id number] 11:08:26 Test Item Value Reference Range Interpretation Comments WHITE BLOOD CELL COUNT (BEAKER) 15.4 K/ L 3.5-10.5 H (test code = 775) RED BLOOD CELL COUNT (BEAKER) 4.36 M/ L 4.63-6.08 L (test code = 761) HEMOGLOBIN (BEAKER) (test code = 11.8 GM/DL 13.7-17.5 L 410) HEMATOCRIT (BEAKER) (test code = 35.6 % 40.1-51.0 L 411) MEAN CORPUSCULAR VOLUME (BEAKER) 81.7 fL 79.0-92.2 (test code = 753) MEAN CORPUSCULAR HEMOGLOBIN 27.1 pg 25.7-32.2 (BEAKER) (test code = 751) MEAN CORPUSCULAR HEMOGLOBIN CONC 33.1 GM/DL 32.3-36.5 (BEAKER) (test code = 752) RED CELL DISTRIBUTION WIDTH 13.3 % 11.6-14.4 (BEAKER) (test code = 412) PLATELET COUNT (BEAKER) (test 263 K/CU MM 150-450 code = 756) MEAN PLATELET VOLUME (BEAKER) 8.9 fL 9.4-12.4 L (test code = 754) NUCLEATED RED BLOOD CELLS 0 /100 WBC 0-0 (BEAKER) (test code = 413) (MANUAL DIFFERENTIAL)2021-12-01 11:08:26 Test Item Value Reference Range Interpretation Comments NEUTROPHILS - REL (DIFF) (BEAKER) 77 % (test code = 1359) LYMPHOCYTES - REL (DIFF) (BEAKER) 7 % (test code = 1360) MONOCYTES - REL (DIFF) (BEAKER) 5 % (test code = 1361) BANDS - REL (DIFF) (BEAKER) (test 11 % 0-10 H code = 1348) NEUTROPHILS - ABS (DIFF) (BEAKER) 11.86 K/ L 1.80-8.00 H (test code = 1365) LYMPHOCYTES - ABS (DIFF) (BEAKER) 1.08 K/ L 1.48-4.50 L (test code = 1366) MONOCYTES - ABS (DIFF) (BEAKER) 0.77 K/ L 0.00-1.30 (test code = 1367) BANDS-ABS (DIFF) (BEAKER) (test 1.7 K/ L 0.0-0.8 H code = 1349) TOTAL COUNTED (BEAKER) (test code 100 = 1351) BANDS + SEGMENTED NEUTROPHILS 13.55 (BEAKER) (test code = 1352) WBC MORPHOLOGY (BEAKER) (test code Normal = 487) PLT MORPHOLOGY (BEAKER) (test code Normal = 486) ANISOCYTOSIS (BEAKER) (test code = 1+ few 961) POIKILOCYTES (BEAKER) (test code = 1+ few 966) POCT-GLUCOSE [id number] 06:16:50 Test Item Value Reference Range Interpretation Comments POC-GLUCOSE METER 119 mg/dL 70-110 H : TESTED A T [facility] 6720 (BEAKER) (test code = [place], 1538) [id number]: Coldfusion/Techni mary ID = [id number] for ite (contract), [facility] BASIC METABOLIC [id number] 05:21:21 Test Item Value Reference Range Interpretation Comments SODIUM (BEAKER) 134 meq/L 136-145 L (test code = 381) POTASSIUM (BEAKER) 4.1 meq/L 3.5-5.1 (test code = 379) CHLORIDE (BEAKER) 105 meq/L 98-107 (test code = 382) CO2 (BEAKER) (test 23 meq/L 22-29 code = 355) BLOOD UREA NITROGEN 13 mg/dL 7-21 (BEAKER) (test code = 354) CREATININE (BEAKER) 0.68 mg/dL 0.57-1.25 (test code = 358) GLUCOSE RANDOM 132 mg/dL 70-105 H (BEAKER) (test code = 652) CALCIUM (BEAKER) 7.8 mg/dL 8.4-10.2 L (test code = 697) EGFR (BEAKER) (test 136 mL/min/1.73 ESTIM ATED GFR IS code = 1092) sq m NOT ACCURATE CREATININE CLEARANCE IN PREDICTING GLOMERULAR FILTRATION RATE . ESTIMATED GFR I S NOT APPLICABLE FOR DIALYSIS PATIEN TS. Coldfusion ID - ROSIE [id number] 05:18:10 Test Item Value Reference Range Interpretation Comments MAGNESIUM (BEAKER) (test code = 1.8 mg/dL 1.6-2.6 627) Coldfusion ID - ROSIE MPOCT-GLUCOSE [id number] 00:32:19 Test Item Value Reference Range Interpretation Comments POC-GLUCOSE METER 127 mg/dL 70-110 H : TESTED A T [facility] 6720 (BARRETT) (test code = PERFECT[place]UD[place] PR, 1538) 71047: Coldfusion/Techni mary ID = [id number] for ite (contract), [employer] RAD, CHEST, 1 VIEW, NON [id number] 22:58:00Reason for exam:->Evaluate for pneumothoraxShould this be performed at the bedside?->Yes [facility] : 1990 Sex: MFINAL REPORT CLINICAL INDICATION: Evaluate for pneumothorax Co mparison: Same date at 1707 hours There is no pneumothorax. The cardiomediastinal contours are stable, including widening of the superior mediastinum. This could reflect a mediastinal mass or fluid collection. Evaluation with CT chest can be obtained, as indicated. The lung volumes remain low. Retrocardiac opacity may reflect atelectasis. Pneumonitis should be excluded clinically. IMPRESSION: No significant interval change. Signed: Denver Mclaughlin MDReport Verified Date/Time: 11/30/2021 22:58:10 SARS-COV2/RT-PCR ([facility])2021-11-30 19:10:19 Test Item Value Reference Range Interpretation Comments SARS-COV2/RT-PCR Negative Negative The SARS-Co V-2 target (test code = nucleic acids a re not [id number]) detected in thi s specimen. Negative result s do not preclude SARS-C oV-2 infection and s hould not be used as the candy e basis for patient managem ent decisions. Nega tive results must be combine d with clinical observ ations, patient history , and epidemiological information. A false negativ e result may occur if a spec imen is improperly estrella ected, transported or handled. This SARS CoV-2 test is a rapid, real-deonna e RT-PCR test intended for th e qualitative detection of nu cleic acid from SARS-CoV-2 in a nasopharyngeal swab specimen collected from individuals suspected of CO VID-19 by their healthcar e provider. This test has been authorized by FDA under an EUA for use by authorized laboratories. This test is only authorized for the duration of the declaration that circumstances exist justifying the authorization of emergency use of in vitro diagnostic tests for detection and/or diagnosis of COVID-19 under Section 564(b)(1) of the Federal Food, Drug and Cosmetic Act, 21 U.S.C. 360bbb- 3(b)(1), unless the authorization is terminated or revoked sooner. Fact Sheet for Healthcare Providers: https://www.Trueffect.[employer]/Documents/Xpert%20Xpress%20SARS%20CoV-2/Fact%20Sheets/302-2122%20SARS-COV -2%20HEALTHCARE%20PROVIDERS%20FACT%20SHEET.pdf Fact Sheet for Healthcare Patients: https://www.Xanga.[employer]/Documents/Xpert %20Xpress%20SARS%20CoV-2/Fact%20Sheets/302-3801%40VMXD-DIM-2%20PATIENT%20FACT%20 SHEET.pdfCOMPREHENSIVE METABOLIC [id number] 18:48:00 Test Item Value Reference Range Interpretation Comments TOTAL PROTEIN 6.0 gm/dL 6.0-8.3 (BEAKER) (test code = 770) ALBUMIN (BEAKER) 3.0 g/dL 3.5-5.0 L (test code = 1145) ALKALINE PHOSPHATASE 83 U/L 40-150 (BEAKER) (test code = 346) BILIRUBIN TOTAL 0.8 mg/dL 0.2-1.2 (BEAKER) (test code = 377) SODIUM (BEAKER) (test 136 meq/L 136-145 code = 381) POTASSIUM (BEAKER) 3.5 meq/L 3.5-5.1 (test code = 379) CHLORIDE (BEAKER) 105 meq/L 98-107 (test code = 382) CO2 (BEAKER) (test 25 meq/L 22-29 code = 355) BLOOD UREA NITROGEN 13 mg/dL 7-21 (BEAKER) (test code = 354) CREATININE (BEAKER) 0.81 mg/dL 0.57-1.25 (test code = 358) GLUCOSE RANDOM 103 mg/dL 70-105 (BEAKER) (test code = 652) CALCIUM (BEAKER) 8.1 mg/dL 8.4-10.2 L (test code = 697) AST (SGOT) (BEAKER) 18 U/L 5-34 (test code = 353) ALT (SGPT) (BEAKER) 23 U/L 6-55 (test code = 347) EGFR (BEAKER) (test 111 ESTIMATE D GFR IS code = 1092) mL/min/1.73 sq NOT ACCURA TE m CREATININE CLEARANCE IN PREDICTING GLOMERULAR FILTRATION RATE . ESTIMATED GFR I S NOT APPLICABLE FOR DIALYSIS PATIEN TS. Coldfusion ID - [id number] 18:41:21 Test Item Value Reference Range Interpretation Comments PARTIAL THROMBOPLASTIN TIME 26.7 seconds 22.5-36.0 (BEAKER) (test code = 760) PROTHROMBIN [id number] 18:40:41 Test Item Value Reference Range Interpretation Comments PROTIME (BEAKER) 16.0 seconds 11.9-14.2 H (test code = 759) INR (BEAKER) (test 1.30 See_Comment [Automat ed message] code = 370) The system [employer] generated this result transmitted ref erence range: <=5.90. The reference range was not used to int erpret this result as normal/abnormal . RECOMMENDED COUMADIN/WARFARIN INR THERAPY RANGESSTANDARD DOSE: 2.0 - 3.0 Includes: PROPHYLAXIS forvenous thrombosis, systemic embolization; TREATMENT for venous thrombosis and/or pulmonary embolus.HIGH RISK: Target INR is 2.5-3.5 for patients with mechanical heart valves.CBC W/PLT COUNT & AUTO DIFFERENTIAL 2021-11-30 18:36:11 Test Item Value Reference Range Interpretation Comments WHITE BLOOD CELL COUNT (BEAKER) 15.0 K/ L 3.5-10.5 H (test code = 775) RED BLOOD CELL COUNT (BEAKER) 4.39 M/ L 4.63-6.08 L (test code = 761) HEMOGLOBIN (BEAKER) (test code = 11.9 GM/DL 13.7-17.5 L 410) HEMATOCRIT (BEAKER) (test code = 36.4 % 40.1-51.0 L 411) MEAN CORPUSCULAR VOLUME (BEAKER) 82.9 fL 79.0-92.2 (test code = 753) MEAN CORPUSCULAR HEMOGLOBIN 27.1 pg 25.7-32.2 (BEAKER) (test code = 751) MEAN CORPUSCULAR HEMOGLOBIN CONC 32.7 GM/DL 32.3-36.5 (BEAKER) (test code = 752) RED CELL DISTRIBUTION WIDTH 13.2 % 11.6-14.4 (BEAKER) (test code = 412) PLATELET COUNT (BEAKER) (test 265 K/CU MM 150-450 code = 756) MEAN PLATELET VOLUME (BEAKER) 8.9 fL 9.4-12.4 L (test code = 754) NUCLEATED RED BLOOD CELLS 0 /100 WBC 0-0 (BEAKER) (test code = 413) NEUTROPHILS RELATIVE PERCENT 77 % (BEAKER) (test code = 429) LYMPHOCYTES RELATIVE PERCENT 11 % (BEAKER) (test code = 430) MONOCYTES RELATIVE PERCENT 9 % (BEAKER) (test code = 431) EOSINOPHILS RELATIVE PERCENT 1 % (BEAKER) (test code = 432) BASOPHILS RELATIVE PERCENT 0 % (BEAKER) (test code = 437) NEUTROPHILS ABSOLUTE COUNT 11.51 K/ L 1.78-5.38 H (BEAKER) (test code = 670) LYMPHOCYTES ABSOLUTE COUNT 1.62 K/ L 1.32-3.57 (BEAKER) (test code = 414) MONOCYTES ABSOLUTE COUNT (BEAKER) 1.41 K/ L 0.30-0.82 H (test code = 415) EOSINOPHILS ABSOLUTE COUNT 0.11 K/ L 0.04-0.54 (BEAKER) (test code = 416) BASOPHILS ABSOLUTE COUNT (BEAKER) 0.04 K/ L 0.01-0.08 (test code = 417) IMMATURE GRANULOCYTES-RELATIVE 2 % 0-1 H PERCENT (BEAKER) (test code = 2801) RAD, CHEST, 1 VIEW, NON [id number] 18:16:00Reason for exam:->OSH transfer for tonsillar abscess with mediastinal extension, eval for pneumome diastinumShould this be performed at the bedside?->Yes [facility] : 1990 Sex: MFINAL REPORT Exam: RAD, CHEST, 1 VIEW, NON DEPTDate: :13 PM Indication:OSH transfer for tonsillar abscess with mediastinal extension, eval for pneumomediastinumComparison: None FINDINGS: Lines/Tubes/Devices: None Lungs:The lungs are well inflated. Left base airspace opacity. Pleura: Blunting left costophrenic angle. Pleural effusion. No pneumothorax. Heart/Mediastinum: Cardiac size within normal limits. Superior mediastinum is widened. Bones/Soft Tissues: No acute osseous abnormality. Upper abdomen: Unremarkable. IMPRESSION:Left base airspace opacity, with trace left effusion likely representing infectious process. Superior mediastinum is widened, recommend contrast enhanced CT of the neck and chest for further evaluation if no outside imaging exists. Signed: Jim Dykes MDRepsaint [facility] Verified Date/Time: 11/30/2021 18:16:56 Reading Location: [facility] [id number] Transitional Reading Room
[2022-01-05] MEDS ORDERED: TRAMADOL HCL 50 MG TAB PO PRN (00:20)
[2022-01-05] MEDS ORDERED: ONDANSETRON 4 MG/2 ML VIAL IV PRN (00:20)
--- NOTE | 2022-01-05 00:29 | P.HP ---
Certification for Inpatient Patient admitted to: Inpatient With expected LOS: >2 Midnights Patient will require the following post-hospital care: None Practitioner: I am a practitioner with admitting privileges, knowledge of patient current condition, hospital course, and medical plan of care. Services: Services provided to patient in accordance with Admission requirements found in Title 42 Section 412.3 of the Code of Federal Regulations Patient History Date of Service: 01/05/22 Reason for admission: Retropharyngeal abscess History of Present Illness: 31-year-old otherwise healthy male who was admitted at our facility on 11/30/2021 for retropharyngeal abscess with sepsis and subsequently transferred to [facility] for progression of retropharyngeal abscess to the mediastinum has been transferred back to our facility after successful surgical intervention. Patient had multiple surgical procedures on November 30, , 10 27 and again on the second of this month. Reportedly has been stable since then but is requiring IV antibiotics with Zosyn 4.5 g IV every 6, for purpose of continuity of care patient was transferred back to our facility. Patient just arrived appears well denies pain or any other specific complaints his incisions appear well-healed appears nontoxic sitting up in bed watching TV. Will be admitted until home antibiotics can be arranged. Allergies No Known Allergies Allergy (Unverified 11/26/21 23:45) Home Medications: NK [No Home Meds] 11/27/21 - Past Medical/Surgical History Diabetic: No -: Retropharyngeal abscess -: possible orchiopexy at age 4 -: Retropharyngeal abscess with extension to mediastinum multiple surgeries Psychosocial/ Personal History: Patient lives at home with his family - Family History Family History: Reviewed- Non-Contributory - Social History Smoking Status: Never smoker Alcohol use: No CD- Drugs: No Caffeine use: Yes Place of Residence: Home Review of Systems 10-point ROS is otherwise unremarkable Cardiovascular: Other (Reports some mild discomfort across his chest wall around previous incision sites) Physical Examination - Vital Signs Temperature: 97.3 F Blood Pressure: 110/77 Pulse: 82 Respirations: 16 Pulse Ox (%): 99 - Physical Exam General: Alert, In no apparent distress, Oriented x3 HEENT: Atraumatic, PERRLA, Mucous membr. moist/pink, EOMI, Sclerae nonicteric Neck: Supple, 2+ carotid pulse no bruit, No LAD, Without JVD or thyroid abnormality Respiratory: Clear to auscultation bilaterally, Normal air movement Cardiovascular: Regular rate/rhythm, Normal S1 S2 Gastrointestinal: Normal bowel sounds, No tenderness Musculoskeletal: No tenderness Integumentary: No rashes, Other (Multiple small incision sites to left/right anterior chest wall and left lateral neck appear well-healed) Neurological: Normal gait, Normal speech, Normal strength at 5/5 x4 extr, Normal tone, Normal affect Lymphatics: No axilla or inguinal lymphadenopathy Assessment and Plan - Plan Assessment: Retropharyngeal abscess with extension to mediastinum status post successful surgical intervention/washouts Plan: Retropharyngeal abscess with extension to mediastinum status post successful surgical intervention/washouts: Patient transferred back to our facility for continuity of care, is uninsured will need IV antibiotics Zosyn 4.5 g every through February 03. Patient appears well, nontoxic will check CBC, basic in the morning provide antibiotics, pain medication as necessary we will consult social work program coordinator to attempt to set up IV antibiotics on an outpatient basis. Patient does have midline/PICC in place from [facility]. DVT PPX: Lovenox Code status: Full Discharge Plan: Home Plan to discharge in: 72 Hours - Advance Directives Does patient have a Living Will: No Does patient have a Durable POA for Healthcare: No - Code Status/Comfort Care Code Status Assessed: Yes (Full) Critical Care: No Time Spent Managing Pts Care (In Minutes): 55
[2022-01-05] MEDS ORDERED: PIPER TAZO 4.5 GM in NA CHLORIDE 0.9% 100 ML IV ONE (01:00)
[2022-01-05] MEDS: PIPER TAZO 4.5 GM in NA CHLORIDE 0.9% 100 ML IV SCH ×3 (01:00→17:38)
[2022-01-05 01:09] VITALS: BMI 22.4
[2022-01-05 05:39] LABS: Absolute Lymphocytes (CBC) 2.3 K/uL (0.7-4.9); Hematocrit 30.8 % (39.6-49.0); Lymphocytes % 37.7 % (15.3-44.8); MPV 6.4 fL (7.6-11.3); RBC Red Blood Cell Count 3.86 M/uL (4.33-5.43)
[2022-01-05 06:00] LABS: Albumin 2.9 g/dL (3.4-5.0); Bilirubin Total 0.3 mg/dL (0.2-1.0); Potassium 3.5 mmol/L (3.5-5.1); Protein, Total 7.9 g/dL (6.4-8.2)
[2022-01-05] MEDS ORDERED: PIPER TAZO 4.5 GM in NA CHLORIDE 0.9% 100 ML IV SCH ×4 (06:00)
--- NOTE | 2022-01-05 06:19 | P.PN ---
Date of Service: 01/05/22 Subjective: Patient reports doing well, states he has been feeling like his usual self for over a week now Just been getting antibiotics With occasional discomfort in his ribs where he had procedures done ROS: 10 point ROS as noted above, otherwise negative Physical exam GEN: Alert, oriented, NAD HEENT: Normal conjunctiva, sclera anicteric CV: Regular rate and rhythm, no edema Pulm: Nonlabored respirations on room air ABD: Soft, nontender, nondistended MSK: Bilateral chest, very minimal soreness, surgical incisions clean, no evidence of infection Neuro: Normal speech, normal affect Problem List Retropharyngeal abscess with extension to mediastinum s/psuccessful surgical intervention/washouts Patient transferred back to our facility for continuity of care uninsured will need IV antibiotics Zosyn 4.5 g every through February 03 per hospitalist at [facility] Appears stable, doing well family services assistant consulted PICC line placed just a few days ago VTE: Ambulatory Code: Full Dispo: Home, likely 2-3 days, if can be set up with outpatient antibiotics Time Spent Managing Pts Care (In Minutes): 35
[2022-01-05] MEDS: ENOXAPARIN 40 MG/0.4 ML SQ SCH (08:55)
[2022-01-06] MEDS: PIPER TAZO 4.5 GM in NA CHLORIDE 0.9% 100 ML IV SCH ×3 (00:46→17:59)
[2022-01-06 05:52] LABS: Absolute Lymphocytes (CBC) 2.3 K/uL (0.7-4.9); Hematocrit 30.4 % (39.6-49.0); Lymphocytes % 34.4 % (15.3-44.8); MPV 6.5 fL (7.6-11.3); RBC Red Blood Cell Count 3.74 M/uL (4.33-5.43)
[2022-01-06 06:16] LABS: Albumin 2.8 g/dL (3.4-5.0); Bilirubin Total 0.2 mg/dL (0.2-1.0); Potassium 3.6 mmol/L (3.5-5.1); Protein, Total 7.4 g/dL (6.4-8.2)
--- NOTE | 2022-01-06 06:22 | P.PN ---
Date of Service: 01/06/22 Subjective: No acute events overnight Stable, no new symptoms ROS: 10 point ROS as noted above, otherwise negative Physical exam GEN: Alert, oriented, NAD HEENT: Normal conjunctiva, sclera anicteric CV: Regular rate and rhythm, no edema Pulm: Nonlabored respirations on room air ABD: Soft, nontender, nondistended MSK: Bilateral chest, very minimal soreness, surgical incisions clean, no evidence of infection Neuro: Normal speech, normal affect Problem List Retropharyngeal abscess with extension to mediastinum s/psuccessful surgical intervention/washouts Patient transferred back to our facility for continuity of care uninsured, will need IV antibiotics Zosyn 4.5 g every through February 03 per hospitalist at [facility] Appears stable, doing well account services representative consulted PICC line placed just a few days ago VTE: Ambulatory Code: Full Dispo: Home, once set up with outpatient antibiotics Time Spent Managing Pts Care (In Minutes): 35
[2022-01-06] MEDS ORDERED: INFLUENZA VACCINE (for 6+ mo) 0.5 ML DOSE IMVAC ONE (09:00)
[2022-01-06] MEDS: ENOXAPARIN 40 MG/0.4 ML SQ SCH (11:08)
[2022-01-07] MEDS: PIPER TAZO 4.5 GM in NA CHLORIDE 0.9% 100 ML IV SCH ×3 (01:25→17:34)
--- NOTE | 2022-01-07 06:10 | P.PN ---
Date of Service: 01/07/22 Subjective: No acute events overnight Stable, no new symptoms ROS: 10 point ROS as noted above, otherwise negative Physical exam GEN: Alert, oriented, NAD HEENT: Normal conjunctiva, sclera anicteric CV: Regular rate and rhythm, no edema Pulm: Nonlabored respirations on room air ABD: Soft, nontender, nondistended MSK: surgical incisions clean, no evidence of infection Neuro: Normal speech, normal affect Problem List Retropharyngeal abscess with extension to mediastinum s/p successful surgical intervention/washouts Patient transferred back to our facility for continuity of care uninsured, will need IV antibiotics Zosyn 4.5 g every through February 03 per hospitalist at [facility] patient transferred without DC summary / minimal records uncertain why patient requires Zosyn, will be difficult to administer q6h as outpatient; no culture results sent over requested DC summary and med records from [facility] for more clarification Otherwise, appears stable, doing well food services manager consulted PICC line placed just a few days prior to arrival here VTE: Ambulatory Code: Full Dispo: Home, once set up with outpatient antibiotics Time Spent Managing Pts Care (In Minutes): 35
[2022-01-07] MEDS: ENOXAPARIN 40 MG/0.4 ML SQ SCH (08:16)
[2022-01-08] MEDS: PIPER TAZO 4.5 GM in NA CHLORIDE 0.9% 100 ML IV SCH ×3 (00:25→17:52)
--- NOTE | 2022-01-08 07:24 | RAD REPORT ---
EXAM DESCRIPTION: RAD - Chest Single View - 01/08/2022 5:42 am CLINICAL HISTORY: h/o effusion / infection COMPARISON: Portable 11/26/2021 TECHNIQUE: AP portable chest image was obtained 01/08/2022 5:42 am . FINDINGS: Lungs are clear. Heart and vasculature are normal. No measurable pleural effusion and no p neumothorax. No acute bony abnormality seen. No acute aortic findings suspected. IMPRESSION: No acute cardiopulmonary process.
[2022-01-08] MEDS: ENOXAPARIN 40 MG/0.4 ML SQ SCH (09:33)
--- NOTE | 2022-01-08 17:56 | P.PN ---
Subjective Date of Service: 01/08/22 Chief Complaint: Retropharyngeal abscess Patient has no new complaints. He is tolerating soft to solid diet. No fever. Physical Examination - Vital Signs Temperature: 98.3 F Blood Pressure: 127/85 Pulse: 75 Respirations: 14 Pulse Ox (%): 100 Assessment And Plan - Plan Physical Exam General: Alert, In no apparent distress, Oriented x3 HEENT: Sclerae nonicteric, normal conjunctiva Respiratory: Clear to auscultation bilaterally, Normal air movement Cardiovascular: Regular rate/rhythm, no edema Gastrointestinal: Soft and benign, Non-distended, No tenderness Retropharyngeal abscess with extension to mediastinum s/p successful surgical intervention/washouts Patient transferred back to our facility for continuity of care uninsured, will need IV antibiotics Zosyn 4.5 g every through February 03 per hospitalist at [facility] patient transferred without DC summary / minimal records. After intervention with treatment physicians notes DC summary from [facility]. Otherwise, appears stable, doing well convention services manager consulted PICC line placed just a few days prior to arrival here. Continue IV Zosyn.
[2022-01-09] MEDS: PIPER TAZO 4.5 GM in NA CHLORIDE 0.9% 100 ML IV SCH ×3 (00:45→16:26)
[2022-01-09] MEDS ORDERED: NA CHLORIDE 0.9% 100 ML ONE (08:10)
[2022-01-09] MEDS ORDERED: PIPERACIL/TAZO 4.5 GM VIAL IV ONE (08:18)
[2022-01-09] MEDS: ENOXAPARIN 40 MG/0.4 ML SQ SCH (09:00)
[2022-01-10] MEDS: PIPER TAZO 4.5 GM in NA CHLORIDE 0.9% 100 ML IV SCH ×3 (01:00→17:10)
[2022-01-10 04:25] VITALS: O2SAT 97
[2022-01-10] MEDS: ENOXAPARIN 40 MG/0.4 ML SQ SCH (08:17)
--- NOTE | 2022-01-10 13:47 | P.PN ---
Subjective Date of Service: 01/10/22 Chief Complaint: Retropharyngeal abscess No new complaints. No fever. He desires to go home. Physical Examination - Vital Signs Temperature: 98.0 F Blood Pressure: 111/73 Pulse: 69 Respirations: 18 Pulse Ox (%): 99 Assessment And Plan - Plan Physical Exam General: Alert, In no apparent distress, Oriented x3 HEENT: Sclerae nonicteric, normal conjunctiva Respiratory: Clear to auscultation bilaterally, Normal air movement Cardiovascular: Regular rate/rhythm, no edema Gastrointestinal: Soft and benign, Non-distended, No tenderness Retropharyngeal abscess with extension to mediastinum s/p successful surgical intervention/washouts Patient transferred back to our facility for continuity of care uninsured. [facility] recommended 6 weeks of IV Zosyn for Strept due to concern for resistance with other antibiotics because patient was still experiencing intermittent fever while on antiantibiotics like vancomycin about Rocephin and gentamicin. Case discussed with Dr. Mederos, at appears patient also had incompletely drained abscesses at that time and that could also explain the intermittent fever on antibiotics. Dr. Mederos feels the strep infection should also respond to Augmentin in the absence of an abscess. Plan is to repeat CT chest and CT soft tissue of the neck and to switch IV Zosyn to Augmentin if abscesses are completely resolved. Patient has no complaint and tolerating solid diet without any issue. Continue IV Zosyn for now. Obtain CT soft tissue of the neck and CT chest. Infectious disease consulted to assist with management.
[2022-01-11] MEDS: PIPER TAZO 4.5 GM in NA CHLORIDE 0.9% 100 ML IV SCH ×3 (00:13→16:41)
[2022-01-11] MEDS: NA CHLORIDE 0.9% 100 ML ONE ×2 (08:07→10:21)
[2022-01-11] MEDS: ENOXAPARIN 40 MG/0.4 ML SQ SCH (10:21)
--- NOTE | 2022-01-11 14:05 | P.CNS ---
Date of Consult: 01/11/22 Chief Complaint: Retropharyngeal abscess History of Present Illness: The patient is a 31-year-old male with no significant past medical history who was recently admitted to our facility from where he was diagnosed with peritonsillar abscess concerning for deep neck infection. He was transferred to [facility] where he stayed for 6 weeks. There he was diagnosed with a retropharyngeal abscess with mediastinal involvement. On 12/03 he underwent a right thoracic incisional debridement of the medial spinal abscess, on 12/07 he underwent a redo of the right thoracoscopy with total lung decoration and washout, on 12/[address]-guided thoracentesis of left pleural effusion collection, and on 12/19 he underwent a left thorascopic washout and decortication. Operative cultures grew beta-hemolytic strep group F. His hospital stay was complicated by recurrent fevers and leukocytosis despite being on broad-spectrum IV antibiotic therapy. Patient's fevers resolved when he was placed on monotherapy with IV Zosyn. Infectious disease team at [facility] rec ommended patient be placed on IV Zosyn until 02-03-22 secondary to concern for resistant bacterial infection despite cultures that were sensitive. However due to patient's insurance status he was transferred back to our facility to complete his antibiotic regimen. Patient currently denies chest pain, sore throat, odynophagia, trismus, dysphagia, or dyspnea. Allergies No Known Allergies Allergy (Unverified 11/26/21 23:45) Home Medications: NK [No Home Meds] 11/27/21 - Past Medical/Surgical History Diabetic: No -: Retropharyngeal abscess -: possible orchiopexy at age 4 -: Retropharyngeal abscess with extension to mediastinum multiple surgeries Psychosocial/ Personal History: Patient lives at home with his family - Social History Smoking Status: Unknown if ever smoked Alcohol use: No CD- Drugs: No Caffeine use: Yes Place of Residence: Home Review of Systems 10-point ROS is otherwise unremarkable Physical Examination Temp Pulse Resp BP Pulse Ox 98.3 F 56 16 124/72 99 01/11/22 12:00 01/11/22 12:00 01/11/22 12:00 01/11/22 12:00 01/11/22 12:00 General: Alert, In no apparent distress, Cachectic HEENT: Atraumatic, Normocephalic Neck: Supple, 2+ carotid pulse no bruit, JVD not distended Respiratory: Clear to auscultation bilaterally, Normal air movement Cardiovascular: No edema, Regular rate/rhythm Capillary refill: <2 Seconds Gastrointestinal: Normal bowel sounds, Soft and benign Musculoskeletal: No clubbing, No swelling, No contractures Conclusions/Impression: Assessment/plan Retropharyngeal abscess with mediastinal involvement -status post serial I&D's with washout -Operative cultures grew beta-hemolytic group strep F. It is likely S. anginosus group. -Recommend repeating CT tissue soft tissue neck. If no drainable abscess, recommend sending patient home on IV Rocephin 2 g every 24 hours and oral metronidazole 7.5 mg/kg p.o. every 6 hours (max 4 g/day) with an antibiotic completion date of 02-03-22. Metronidazole recommended to be added to antibiotic regimen due to concern for mixed infection with anaerobes secondary to patient's persistent fever/leukocytosis while he was hospitalized at [facility]. Medical management per primary team Plan of care discussed with Dr. Springer Thank you for consultation
--- NOTE | 2022-01-11 15:48 | RAD REPORT ---
EXAM DESCRIPTION: CT - Thorax W/ Con - 01/11/2022 2:44 pm CLINICAL HISTORY: Retropharyngeal abscess and mediastinal abscess COMPARISON: Soft Tissue Neck W/Contr dated 11/29/2021; Chest Pa And Lat (2 Views) dated 11/25/2021 TECHNIQUE: Dynamically enhanced 5 mm thick images of the chest were obtained during administration o f 100 mL non-ionic IV contrast. All CT scans are performed using dose optimization technique as appropriate and may include automated exposure control or mA/KV adjustment according to patient size. FINDINGS: Right lung field and left upper lobe clear of any significant finding. In the posteromedia l left lower lung field there is a 3 x 2 centimeter area of enhancing tissue abutting the medial pleu ral margin. There is stranding in the surrounding tissues. There is questionably a faint enhancing ve ssel extending from the pleura into this mass. There is a prominent vessel projecting from the descen ding thoracic aorta deep to the pleura but not specifically entering into this mass. Density with ind icate enhancement of this focus of tissue. This does not have the typical appearance for a pulmonary abscess. Malignancy is not excluded given the irregular margins but would not be common in a patient this age. Intralobar pulmonary sequestration would be a primary consideration. Atypical or round pneu monia possible. There is a trace amount of pleural fluid in the posteromedial left base. No right-sided pleural effusion. No pneumothorax. A minimal amount of atelectasis is present in the r ight posterior gutter. No chest wall mass or abnormal axillary lymphadenopathy. Mediastinal and hilar vessels enhance normally. No abnormal lymphadenopathy. There is no congestion o r edema of the mediastinal fat. No esophageal abnormality seen. There are no endobronchial lesions id entified. Base of the neck is imaged. There are no abnormalities at the level of the thyroid gland. IMPRESSION: A 3 x 2 centimeter enhancing tissue is present in the posteromedial left base. Margins a re irregular. As detailed above, intralobar pulmonary sequestration would be a primary consideration. Malignancy is not excluded but not expected in a patient this age. This is not a typical appearance for focal pneu monia or abscess. No mediastinal abnormality. No evidence for mediastinal extension of the infectious/ inflammatory pro cess seen on the November CT neck examination. Follow-up CT chest imaging could be performed in a few months to allow clearing of any infectious/inf lammatory process. Exam could be performed as a CT angio chest examination with delayed imaging as we ll to try to identify any supplying vessel to the left base mass.
--- NOTE | 2022-01-11 16:25 | P.PN ---
Subjective Date of Service: 01/11/22 Chief Complaint: Retropharyngeal abscess No new complaints. No fever. Physical Examination - Vital Signs Temperature: 98.3 F Blood Pressure: 124/72 Pulse: 56 Respirations: 16 Pulse Ox (%): 99 Assessment And Plan - Plan Physical Exam General: Alert, In no apparent distress, Oriented x3 HEENT: Sclerae nonicteric, normal conjunctiva Respiratory: Clear to auscultation bilaterally, Normal air movement Cardiovascular: Regular rate/rhythm, no edema Gastrointestinal: Soft and benign, Non-distended, No tenderness Retropharyngeal abscess with extension to mediastinum s/p successful surgical intervention/washouts Patient transferred back to our facility for continuity of care uninsured. [facility] recommended 6 weeks of IV Zosyn for Strept due to concern for resistance with other antibiotics because patient was still experiencing intermittent fever while on antiantibiotics like vancomycin about Rocephin and gentamicin. Case discussed with Dr. Mederos, at appears patient also had incompletely drained abscesses at that time and that could also explain the intermittent fever on antibiotics. Dr. Mederos feels the strep infection should also respond to Augmentin in the absence of an abscess. Plan is to repeat C imaging of the chest and neck and to switch IV Zosyn to IV Rocephin and oral Flagyl for discharge. CT chest demonstrated rounded mass in the lower lung-could be secondary to intralobular pulmonary sequestration. No abscess identified. MRI of of soft tissue neck is pending. Patient has no complaint and tolerating solid diet without any issue. Continue IV Zosyn for now. Infectious disease input appreciated.
[2022-01-12] MEDS: PIPER TAZO 4.5 GM in NA CHLORIDE 0.9% 100 ML IV SCH ×3 (00:55→18:13)
[2022-01-12] MEDS: ENOXAPARIN 40 MG/0.4 ML SQ SCH (10:22)
--- NOTE | 2022-01-12 11:54 | P.PN ---
Subjective Date of Service: 01/12/22 Chief Complaint: Retropharyngeal abscess Patient has no new complaint. He is eager to go home. PICC line placed last night. Physical Examination - Vital Signs Temperature: 97.4 F Blood Pressure: 105/69 Pulse: 68 Respirations: 14 Pulse Ox (%): 99 Assessment And Plan - Plan Physical Exam General: Alert, In no apparent distress, Oriented x3 HEENT: Sclerae nonicteric, normal conjunctiva Respiratory: Clear to auscultation bilaterally, Normal air movement Cardiovascular: Regular rate/rhythm, no edema Gastrointestinal: Soft and benign, Non-distended, No tenderness Musculoskeletal: Right arm PICC line. Retropharyngeal abscess with extension to mediastinum s/p successful surgical intervention/washouts Patient transferred back to our facility for continuity of care uninsured. [facility] ID recommended 6 weeks of IV Zosyn for Strept due to concern for resistance with other antibiotics because patient was still experiencing intermittent fever while on antiantibiotics like vancomycin about Rocephin and gentamicin. Case discussed with Dr. Mederos, at appears patient also had incompletely drained abscesses at that time and that could also explain the intermittent fever on antibiotics. Dr. Mederos feels the strep infection should also respond to Augmentin in the absence of an abscess. CT chest demonstrated rounded mass in the lower lung-could be secondary to intralobular pulmonary sequestration. No abscess identified. MRI of of soft tissue neck results pending. Will order IV Rocephin plus oral Flagyl x3 weeks as outpatient. Patient has no complaint and tolerating solid diet without any issue. Continue IV Zosyn for now. Infectious disease is following.
[2022-01-13] MEDS: PIPER TAZO 4.5 GM in NA CHLORIDE 0.9% 100 ML IV SCH ×3 (01:19→17:14)
[2022-01-13] MEDS ORDERED: NA CHLORIDE 0.9% 100 ML ONE (07:54)
[2022-01-13] MEDS: ENOXAPARIN 40 MG/0.4 ML SQ SCH (10:18)
[2022-01-13] MEDS ORDERED: PIPERACIL/TAZO 4.5 GM VIAL IV ONE (10:18)
--- NOTE | 2022-01-13 12:12 | P.PN ---
Subjective Date of Service: 01/13/22 Chief Complaint: Retropharyngeal abscess Patient has no new complaint. Physical Examination - Vital Signs Temperature: 97.2 F Blood Pressure: 112/71 Pulse: 61 Respirations: 12 Pulse Ox (%): 98 Assessment And Plan - Plan Physical Exam General:In no apparent distress. HEENT: Sclerae nonicteric, normal conjunctiva Respiratory: Clear to auscultation bilaterally, Normal air movement Cardiovascular: Regular rate/rhythm, no edema Gastrointestinal: Soft and benign, Non-distended, No tenderness Musculoskeletal: Right arm PICC line. Retropharyngeal abscess with extension to mediastinum s/p successful surgical intervention/washouts Patient transferred back to our facility for continuity of care uninsured. [facility] ID recommended 6 weeks of IV Zosyn for Strept due to concern for resistance with other antibiotics because patient was still experiencing intermittent fever while on antiantibiotics like vancomycin about Rocephin and gentamicin. Case discussed with Dr. Mederos, at appears patient also had incompletely drained abscesses at that time and that could also explain the intermittent fever on antibiotics. Dr. Mederos feels the strep infection should also respond to PCN antibiotics. CT chest demonstrated rounded mass in the lower lung-could be secondary to intralobular pulmonary sequestration. No abscess identified. MRI of of soft tissue neck results pending. Infectious diseases recommended IV Rocephin and oral Flagyl for outpatient treatment. Will order IV Rocephin plus oral Flagyl x3 weeks as outpatient. Patient has no complaint and tolerating solid diet without any issue. Continue IV Zosyn for now. Infectious disease is following.
[2022-01-14] MEDS: PIPER TAZO 4.5 GM in NA CHLORIDE 0.9% 100 ML IV SCH (01:11)
[2022-01-14 05:32] LABS: Potassium 3.6 mmol/L (3.5-5.1)
[2022-01-14 05:36] LABS: Absolute Lymphocytes (CBC) 1.7 K/uL (0.7-4.9); Hematocrit 32.4 % (39.6-49.0); Lymphocytes % 37.1 % (15.3-44.8); RBC Red Blood Cell Count 4.04 M/uL (4.33-5.43)
--- NOTE | 2022-01-14 07:35 | RAD REPORT ---
EXAM DESCRIPTION: MRI - Soft Tissue Neck W/Wo - 01/14/2022 7:09 am CLINICAL HISTORY: Follow-up retropharyngeal abscess COMPARISON: Soft Tissue Neck W/Contr dated 11/29/2021; Soft Tissue Neck W/Contr dated 11/26/2021 FINDINGS: No retropharyngeal abscess identified. Inflammatory changes and abscesses as noted on the CT from 11/29/2021 have significantly improved. Mild prevertebral edema persists. There is some edema tracking within the soft tissues of the neck. No discrete fluid collection is identified. The paroti d and submandibular glands are intact. This intracranial contents are grossly unremarkable. Airways w idely patent. No lymphadenopathy. IMPRESSION: Marked improvement compared with 11/29/2021 with resolution of the peritonsillar and pre vertebral abscesses.
[2022-01-14] MEDS: ENOXAPARIN 40 MG/0.4 ML SQ SCH (09:00)
--- NOTE | 2022-01-14 09:35 | RAD REPORT ---
EXAM DESCRIPTION: RAD - Chest Single View - 01/12/2022 12:33 am CLINICAL HISTORY: The patient is 31 years old and is Male; s/p picc insertion TECHNIQUE: Frontal view of the chest. COMPARISON: No relevant prior studies available. FINDINGS: Lungs: No consolidation. Pleural space: Blunting of the left costophrenic angle which may indicate left pleural effusion. No pneumothorax. Heart: Unremarkable. Mediastinum: Unremarkable. Bones/joints: Unremarkable. Tubes, lines and devices: Right PICC with tip in the SVC. There may be a catheter overlying the left axillary region. IMPRESSION: 1. Blunting of the left costophrenic angle which may indicate left pleural effusion. 2. No consolidation. Electronically signed by: Jan Martinez MD 01/12/2022 12:43 AM CDT Due to temporary technical issues with the PACS/Fluency reporting system, reports are being signed by the in house radiologist without review as a courtesy to ensure prompt reporting. The interpreting r adiologist is fully responsible for the content of the report.
[2022-01-14 10:09] VITALS: BP 125/91; TEMP 98
--- NOTE | 2022-01-14 10:52 | P.DS ---
Admission Date: 01/04/22 Discharge Date: 01/14/22 Disposition: ROUTINE DISCHARGE Discharge Condition: FAIR Reason for Admission: Retropharyngeal abscess - Problems (1) Retropharyngeal abscess Current Visit: No Status: Acute Brief History of Present Illness: 31-year-old otherwise healthy male who was admitted at our facility on 11/30/2021 for retropharyngeal abscess with sepsis and subsequently transferred to [facility] in [place] for progression of retropharyngeal abscess to the mediastinum. has been transferred back to our facility after successful surgical intervention. Patient had multiple surgical procedures on November 30, , and again on December 19. Procedures included lung washout, debridements and decortication, VATS, mediastinal tube, multiple chest tubes. He was treated with multiple antibiotics which included IV vancomycin, Rocephin, gentamicin and Zosyn. Antibiotics were later scaled down to IV Zosyn and had reportedly been stable on the Zosyn. Patient seen by infectious disease at [facility] who recommended 6 weeks of IV Zosyn. Patient was getting the Zosyn every 6 hours so the decision was made to transfer him back to [facility] to continue the antibiotic treatment. Patient on arrival had no complaint and his incisions appeared well-healed appears. Hospital Course: Retropharyngeal abscess with extension to mediastinum s/p successful surgical intervention/washouts Patient admitted to the medical floor and continued on Zosyn. [facility] ID recommended 6 weeks of IV Zosyn for Strept due to concern for resistance with other antibiotics because patient was still experiencing intermittent fever while on antibiotics- vancomycin about Rocephin and gentamicin. Case discussed with Dr. Mederos, it appears patient also had incompletely drained abscesses at that time and that could also explain the intermittent fever on antibiotics. Dr. Mederos feels the strep infection should also respond to PCN based antibiotics. CT chest demonstrated rounded mass in the lower lung-could be secondary to intralobular pulmonary sequestration. No abscess identified. MRI of of soft tissue neck showed resolution of the peritonsillar and prevertebral abscess. Infectious diseases recommend IV Rocephin and oral Flagyl for outpatient tr eatment for 3 weeks. Patient has no complaint and tolerating solid diet without any issue. Patient has been informed to return to the ED for evaluation should he develop a fever while on the antibiotics. Vital Signs/Physical Exam: Temp Pulse Resp BP Pulse Ox 98 F 84 18 125/91 H 98 01/14/22 08:00 01/14/22 08:00 01/14/22 08:00 01/14/22 08:00 01/14/22 08:00 General: Alert, In no apparent distress, Oriented x3 Respiratory: Clear to auscultation bilaterally, Normal air movement Cardiovascular: No edema, Regular rate/rhythm, Normal S1 S2 Gastrointestinal: Soft and benign, Non-distended, No tenderness Musculoskeletal: No swelling Integumentary: No rashes Neurological: Other (No focal motor deficit) Laboratory Data at Discharge: WBC 4.6 K/uL (4.3-10.9) D 01/14/22 05:10 Hgb 10.8 g/dL (13.6-17.9) L 01/14/22 05:10 Hct 32.4 % (39.6-49.0) L 01/14/22 05:10 Plt Count 235 K/uL (152-406) D 01/14/22 05:10 Sodium 141 mmol/L (136-145) 01/14/22 05:10 Potassium 3.6 mmol/L (3.5-5.1) 01/14/22 05:10 BUN 8 mg/dL (7-18) 01/14/22 05:10 Creatinine 1.00 mg/dL (0.55-1.3) 01/14/22 05:10 Glucose 96 mg/dL (74-106) 01/14/22 05:10 Total Bilirubin 0.2 mg/dL (0.2-1.0) 01/06/22 05:12 AST 18 U/L (15-37) 01/06/22 05:12 ALT 40 U/L (12-78) 01/06/22 05:12 Alkaline Phosphatase 68 U/L (45-117) 01/06/22 05:12 Home Medications: Ceftriaxone [Rocephin] 1,000 mg IV DAILY #21 vial 01/14/22 metroNIDAZOLE [Flagyl] 500 mg PO Q8H #63 tablet 01/14/22 New Medications: metroNIDAZOLE [Flagyl] 500 mg PO Q8H #63 tablet Ceftriaxone [Rocephin] 1,000 mg IV DAILY #21 vial Diet: Regular Activity: Ad viji Time spent managing pt's care (in minutes): 40
--- NOTE | 2022-01-14 12:22 | P.PN ---
Subjective Date of Service: 01/14/22 Chief Complaint: Retropharyngeal abscess Patient seen and examined at bedside, doing well with no acute complaints. Review of Systems 10-point ROS is otherwise unremarkable Physical Examination - Vital Signs Temperature: 98 F Blood Pressure: 125/91 Pulse: 84 Respirations: 18 Pulse Ox (%): 98 - Studies Laboratory Data (last 24 hrs) 01/14/22 05:10: Sodium 141, Potassium 3.6, BUN 8, Creatinine 1.00, Glucose 96 01/14/22 05:10: WBC 4.6 D, Hgb 10.8 L, Hct 32.4 L, Plt Count 235 D Assessment And Plan - Plan Physical Exam: General: Alert, In no apparent distress, Cachectic HEENT: Atraumatic, Normocephalic Neck: Supple, 2+ carotid pulse no bruit, JVD not distended Respiratory: Clear to auscultation bilaterally, Normal air movement Cardiovascular: No edema, Regular rate/rhythm Capillary refill: <2 Seconds Gastrointestinal: Normal bowel sounds, Soft and benign Musculoskeletal: No clubbing, No swelling, No contractures Conclusions/Impression: Assessment/plan Retropharyngeal abscess with mediastinal involvement -status post serial I&D's with washout -Operative cultures grew beta-hemolytic group strep F. It is likely S. anginosus group. -Recommend repeating CT tissue soft tissue neck. If no drainable abscess, recommend sending patient home on IV Rocephin 2 g every 24 hours and oral metronidazole 7.5 mg/kg p.o. every 6 hours (max 4 g/day) with an antibiotic completion date of 02-03-22. Metronidazole recommended to be added to antibiotic regimen due to concern for mixed infection with anaerobes secondary to patient's persistent fe duy/leukocytosis while he was hospitalized at [facility]. Medical management per primary team Plan of care discussed with Dr. Springer Thank you for consultation
== END 2022-01-14 12:20 | disposition home or self-care (01) | DRG 153 ==
LOC: EDSTATUS 17:18 → 2ND 23:51
PROVIDERS: ADMIT Hospitalist; ATTEND Hospitalist
PROC: 02HV33Z Insertion of Infusion Device into Superior Vena Cava, Percutaneous Approach (ICD-10-PCS; principal; 2022-01-11)
DX: J39.0 Retropharyngeal and parapharyngeal abscess (principal)
CPT/HCPCS: 36415; 36569; 70543; 71045; 71260; 80048; 80053; 85025; A9577; J1650; Q9967